=== PATIENT | female | born 1955 | race Caucasian/White ===

== ENCOUNTER 2017-06-27 09:37 | Day surgery (SDC) | payer SELFPAY ==
[2017-06-27] MEDS ORDERED: Sodium Chloride 0.9% 20 ML ONE (09:57)
[2017-06-27 10:26] LABS: Hematocrit 40.8 % (36.0-47.0); Mean Platelet Volume 6.8 fL (7.4-10.4); White Blood Cell (WBC) Count 20.2 thou/uL (4.8-10.8)
[2017-06-27] MEDS ORDERED: Palonosetron HCl 0.25 MG, Admixture Fee 1 EACH in Sodium Chloride 0.9% 50 ML IVPB SCH (10:30)
[2017-06-27] MEDS ORDERED: Fosaprepitant Dimeglumine 150 MG, Admixture Fee 1 EACH in Sodium Chloride 0.9% 250 ML 1... IVPB SCH (10:30)
[2017-06-27 10:37] VITALS: BP 130/69; TEMP 98.4
[2017-06-27] MEDS ORDERED: MANNITOL IV SCH (10:45)
[2017-06-27] MEDS ORDERED: Dexamethasone 20 MG, Admixture Fee 1 EACH in Sodium Chloride 0.9% 50 ML IVPB SCH (10:45)
[2017-06-27] MEDS ORDERED: CISPLATIN IV SCH (10:45)
[2017-06-27] MEDS ORDERED: Cyanocobalamin 1000 MCG/ML VIAL IM SCH (10:45)
[2017-06-27] MEDS ORDERED: ADMIXTURE FEE IV SCH (10:45)
[2017-06-27] MEDS ORDERED: PEMETREXED IVPB SCH ×2 (10:45)
[2017-06-27] MEDS ORDERED: SODIUM CHLORIDE IV SCH (10:45)
[2017-06-27] MEDS ORDERED: SODIUM CHLORIDE 0.9% IVPB SCH ×2 (10:45)
[2017-06-27 10:50] LABS: Band 9 % (5-11); Neutrophil 78 % (42-75)
[2017-06-27 10:54] LABS: ALT (SGPT) 15 U/L (8-55); AST (SGOT) 11 U/L (5-34); Alkaline Phosphatase 96 U/L (40-150); Anion Gap 16 mmol/L (10-20); BUN (Urea Nitrogen) 15 mg/dL (9.8-20.1); Bilirubin, Total 0.2 mg/dL (0.2-1.2); Calc. Creatinine Clearance 63 mL/min (70-130); Calcium 10.1 mg/dL (7.8-10.44); Carbon Dioxide 23 mmol/L (23-31); Chloride 102 mmol/L (98-107); Estimated GFR-MDRD 52; Globulin 3.3 g/dL (2.4-3.5); LDH 157 U/L (125-220); Magnesium 1.7 mg/dL (1.6-2.6); Protein, Total 7.3 g/dL (6.0-8.3); Uric Acid 6.6 mg/dL (2.6-6.0)
[2017-06-27] MEDS: ADMIXTURE FEE IV SCH ×2 (11:09→15:12)
[2017-06-27] MEDS: SODIUM CHLORIDE IV SCH ×2 (11:09→15:12)
[2017-06-27] MEDS: POTASSIUM CHLORIDE IV SCH ×2 (11:09→15:12)
== END 2017-06-27 16:33 | disposition home or self-care (01) ==
LOC: ONC/OP 09:37
PROVIDERS: ATTEND Internal Medicine Medical Oncology
DX: Z51.11 Encounter for antineoplastic chemotherapy (principal); C34.12 Malignant neoplasm of upper lobe, left bronchus or lung; I25.10 Atherosclerotic heart disease of native coronary artery without angina pectoris; E78.00 Pure hypercholesterolemia, unspecified; F32.9 Major depressive disorder, single episode, unspecified; F41.9 Anxiety disorder, unspecified; I25.2 Old myocardial infarction; J44.9 Chronic obstructive pulmonary disease, unspecified; I11.0 Hypertensive heart disease with heart failure; I50.9 Heart failure, unspecified; Z88.0 Allergy status to penicillin; Z88.5 Allergy status to narcotic agent; Z88.8 Allergy status to other drugs, medicaments and biological substances; Z95.5 Presence of coronary angioplasty implant and graft; Z90.710 Acquired absence of both cervix and uterus; Z90.2 Acquired absence of lung [part of]; Z87.891 Personal history of nicotine dependence; Z86.73 Personal history of transient ischemic attack (TIA), and cerebral infarction without residual deficits; Z82.49 Family history of ischemic heart disease and other diseases of the circulatory system; Z80.9 Family history of malignant neoplasm, unspecified
CPT/HCPCS: 80053; 83615; 83735; 84550; 85025; 96367; 96413; 96415; 96417; A4216; J1100; J1453; J1642; J2150; J2469; J3420; J3480; J7050; J9060; J9305

== ENCOUNTER 2017-06-30 12:03 | Inpatient (IN) | payer OTHER, SELFPAY ==
[2017-06-30 12:41] LABS: #Basophils 0.1 thou/uL (0.0-0.2); #Lymphocytes 5.2 thou/uL (1.20-3.40); #Monocytes 0.2 thou/uL (0.11-0.59); #Neutrophils 7.3 thou/uL (1.40-6.50); %Basophils 1.1 % (0.0-1.0); %Eosinophils 0.3 % (0.0-10.0); %Lymphocytes 40.4 % (21.0-51.0); %Monocytes 1.8 % (0.0-10.0); Mean Platelet Volume 6.9 fL (7.4-10.4); Red Blood Cell (RBC) Count 4.54 mill/uL (4.20-5.40); White Blood Cell (WBC) Count 12.9 thou/uL (4.8-10.8)
--- NOTE | 2017-06-30 12:47 | CT ---
CT HEAD NONCONTRAST: HISTORY: Vision loss. Altered mental status. FINDINGS: There is no evidence of acute intracranial hemorrhage or infarct. The ventricles appear normal in s ize, shape, and position. There is no mass effect or shift of midline structures. Visualized paran vicki sinuses remain well aerated. IMPRESSION: No acute intracranial abnormalities are demonstrated on noncontrast CT head. Findings were called to Dr. Buckner in the emergency department at 1211 hours. CODE CR POS: [facility]
[2017-06-30 12:52] LABS: ALT (SGPT) 27 U/L (8-55); AST (SGOT) 24 U/L (5-34); Alkaline Phosphatase 82 U/L (40-150); Anion Gap 14 mmol/L (10-20); BUN (Urea Nitrogen) 34 mg/dL (9.8-20.1); Bilirubin, Total 0.3 mg/dL (0.2-1.2); Calc. Creatinine Clearance 0 mL/min (70-130); Calcium 9.2 mg/dL (7.8-10.44); Carbon Dioxide 27 mmol/L (23-31); Chloride 97 mmol/L (98-107); Estimated GFR-MDRD 38; Protein, Total 6.7 g/dL (6.0-8.3)
[2017-06-30 12:53] LABS: Prothrombin Time 11.9 SEC (12.0-14.7)
[2017-06-30 12:57] LABS: Troponin I Less than 0.010 ng/mL (< 0.028)
[2017-06-30] MEDS ORDERED: Clopidogrel Bisulfate 75 MG TAB ONE (13:23)
[2017-06-30] MEDS ORDERED: Ondansetron HCl/PF 4 MG/2 ML Vial ONE (13:23)
[2017-06-30 13:36] LABS: CK (CPK) 26 U/L (29-168); Lipase 28 U/L (8-78)
--- NOTE | 2017-06-30 13:50 | RAD ---
AP VIEW CHEST: HISTORY: Altered mental status. DATE: 06/30/17. COMPARISON: Comparison is made to previous exam from 05/22/17. FINDINGS: AP view chest demonstrates a subclavian MediPort catheter, distal tip overlying the SVC. The lungs are well aerated. No evidence of active intrathoracic disease seen. No evidence of effusions, pneu monia, or pneumothorax seen. IMPRESSION: Unremarkable AP view chest. POS: [facility]
[2017-06-30] MEDS ORDERED: Sodium Chloride 0.9% 1,000 ML IV SCH ×3 (14:15)
--- NOTE | 2017-06-30 14:59 | PDOC.EVN ---
Event Note - Event Note Event Note: pt seen and examined , H & P dictated # [id number]
--- NOTE | 2017-06-30 16:02 | ULT ---
BILATERAL CAROTID DUPLEX ULTRASOUND: 06/30/17 HISTORY: Altered mental status and vision loss. TECHNIQUE: Webster scale ultrasound with color flow doppler and spectral doppler imaging of the extracranial carot id artery system is performed bilaterally. FINDINGS: There is plaque formation on either side. Vessels are tortuous. The peak systolic velocity in the right ICA measures 69 cm/s with an end diastolic velocity of 30 cm /s and systolic ratio of 0.89. The peak systolic velocity in the left ICA measures 79 cm/s with an end diastolic velocity of 24 cm/ s and systolic ratio of 1.20. Flow in both vertebral arteries remains antegrade. IMPRESSION: No evidence of hemodynamically significant stenosis. POS: [facility]
[2017-06-30 16:22] VITALS: BMI 29.5
[2017-06-30] MEDS ORDERED: FLU VACC QS2017-18 36 mo. & older 0.5 ML SYRINGE IM ONE (16:45)
--- NOTE | 2017-06-30 17:19 | HP ---
CHIEF COMPLAINT: Visual disturbances. HISTORY OF PRESENT ILLNESS: The patient is a 62-year-old female with past medical history significa nt for lung cancer, status post lobectomy and chemotherapy; CAD; hypertension; status post coronary stenting; asthma; depression; CHF; COPD. The patient presented to the emergency room, complaining o f not being able to see since 7:30 this morning. The patient says she woke up this morning and went to feed her dog and could not see the left half of her vision. This progressively became worse. S he also had a severe vertigo attack, which caused her to fall to her feet, but she did not sustain a ny trauma. She sat in the chair and then called her who then brought her to the ER. In the emergency room, it was noted that patient had visual deficit involving the left half of the visual field. A CT scan of the head done in the emergency room was negative. The patient, by the time of her arrival, was outside of the tPA window. The patient was noted to have unsteady gait as well. A t the time of my visit, the patient is improved; however, she had a transient worsening of her visio n. At that time, her blood pressure was noted to be low in the ER, the systolic blood pressure in t he 70s. She received 2-liter bolus, now the blood pressure has come up to 110. Patient says she is not able to see, but the vision deficit has stabilized over the past half an hour or so. She denie s any headache. She has no change in mental status. She does not have any slurred speech. Vertigo has improved. She denies any weakness of any part of the body. Patient does have a history of pre vious CVA about 5 years ago. At that time, she had right hemiparesis. She almost fully recuperated . She says occasionally the right leg drags, but overall she is doing well. Recently, the patient had an SD about 2 months ago and since then she has been on aspirin and Brilinta. The patient did g et Plavix in the ER. PAST MEDICAL HISTORY: 1. Hypertension. 2. COPD. 3. Lung cancer on chemo, the last dose was 3 days ago. 4. Status post lobectomy. 5. Status post coronary artery stenting for acute SD in the recent 6 months as mentioned above. 6. Hyperlipidemia. 7. Depression. 8. History of CHF. 9. History of pancreatitis. 10. History of CVA 5 years ago as mentioned above. PAST SURGICAL HISTORY: The patient has left upper lobe lobectomy, cardiac stenting, and tonsillecto my. She has also had hysterectomy in the past. HOME MEDICATIONS: The patient is on albuterol, Paxil, Brilinta, aspirin, atorvastatin, and metoprol ol. SOCIAL HISTORY: The patient is . She lives at home with her . The patient is an act rey smoker, half a pack a day for past several years. History of marijuana abuse in the past, curre ntly negative. Patient denies any history of cocaine abuse. FAMILY HISTORY: Mother has hypertension and cancer. REVIEW OF SYSTEMS: Constitutional: No history of weight loss, weight gain, night sweats, or fevers . HEENT: As per history of present illness. The patient denies any difficulty in chewing or swall owing. No hearing problem, no headache. Cardiac: As per history of present illness. Currently, d enies any chest pain, palpitations, or pedal edema. Respiratory: As per history of present illness . Denies any wheezing, cough, or hemoptysis currently. Gastrointestinal: No abdominal pain, nause a, vomiting, diarrhea, black stool, or blood in stools. Neurological: As per history of present il lness. No history of seizures. No history of tingling or numbness. Hematologic: As per history o f present illness. The patient denies any easy bruising or bleeding. Skin: No history of petechia e or rashes. PHYSICAL EXAMINATION: GENERAL: This is a pleasant middle-aged female, in no apparent distress. VITAL SIGNS: Her current blood pressure is 117/72, pulse rate 59, respirations 20. Earlier, patien t was in a low as mentioned above before the bolus in the 70s. HEENT: Normocephalic, atraumatic. Pupils are reactive to light and accommodation. Extraocular mov ements are intact. There is no nystagmus. Face is symmetrical bilaterally. Ears are clear. Nose shows no nasal lesions, no discharge. Oral cavity shows tongue is central and midline. No oral les ions. NECK: Supple. No thyromegaly, no JVD, no bruit. CHEST: The patient has a surgical scar present. There is diminished breath sound over the left upp er lobe, bilateral. Clear to auscultation otherwise. CARDIOVASCULAR: S1, S2 normal. No S3, S4, or murmur. ABDOMEN: Obese, soft, nontender. Bowel sounds are active. No guarding or rebound. Free fluid. N o masses. No organomegaly. NEUROLOGIC: Patient is awake, alert, oriented x3. The patient has a visual field deficit on the le ft side as mentioned above. Otherwise, no focal neurological deficits are noted. Speech is normal. Bilateral plantars are downgoing. SKIN: No petechiae or rashes. LABORATORY DATA: Her white count is slightly elevated at 12.9, hemoglobin 14.7, hematocrit 44, plat elets are 311. Differential is normal. PT/INR is within normal limits. Sodium 134, potassium 4.3, chloride 97, CO2 of 27, anion gap 14, BUN 34, creatinine 1.41, slightly elevated glucose compared t o previous visit. Glucose 112, calcium 9.2, total bilirubin 0.3, AST 24, ALT 27. BNP is elevated a t 144. LFTs are within normal limits. CT of the head done in the emergency room is within normal l imits. Chest x-ray is within normal limits. The patient did have an MRI of the brain in 03/2017 fo r staging of the cancer and it was within normal limits. There were no intracranial metastases. Tyler smith had a nuclear PET scan in 02/2017, which showed hypermetabolic lesion in the left upper lobe and h ypermetabolic activity in the left maxillary sinus area. A 2D echocardiogram was done in 12/2016 wi th EF of 40% to 45%. CT of the thorax done in 04/2017, showing changes of lobectomy, otherwise unre markable. ASSESSMENT AND PLAN: 1. Acute ischemic cerebrovascular accident involving right occipital lobe. 2. History of cerebrovascular accident in the past. 3. Left hemianopsia. 4. History of lung cancer, status post lobectomy. 5. On chemotherapy with cisplatin. 6. Low blood pressure, now resolved. 7. Acute renal failure/chronic kidney disease. 8. Coronary artery disease. 9. Status post recent percutaneous coronary intervention. 10. Left ventricle ejection fraction of 40% to 45%. 11. History of congestive heart failure, currently stable. 12. Tobacco abuse. 13. Chronic obstructive pulmonary disease. 14. Depression. ASSESSMENT AND PLAN: At this present time, the patient will be monitored in IMCU. We will do neuro checks q.2 hours. I discussed the case over the phone with the Neurology banking management consulting manager and he agrees wit h the present management. The patient is outside the tPA window and is not a candidate for intra-ar terial intervention. We will continue with aspirin and Brilinta. We will follow stroke protocol. We will do bedside speech evaluation. We will check 2D echocardiogram and carotid Dopplers. We jazmín vela also request oncology consultation in view of her history of cancer and recent chemotherapy. We w ill put her on normal saline at 125 mL an hour after the saline bolus at ER was completed allowing f or permissive hypertension. We will monitor closely for any signs of fluid overload. We will monit or the creatinine as well. We will put her on Protonix for stress ulcer prophylaxis and SCD for DVT prophylaxis. We will put her on nebulizer treatment. We will review her home medication. Further recommendations will be made depending on course of clinical events. Discussed with the patient at bedside. She was updated on the plan. All questions were answered.
[2017-06-30] MEDS: Sodium Chloride 0.9% 1,000 ML IV SCH (17:57)
[2017-06-30] MEDS: Ondansetron HCl/PF 4 MG/2 ML Vial IVP PRN (18:42)
[2017-06-30] MEDS: TICAGRELOR 90 MG TABLET PO SCH (20:37)
[2017-06-30] MEDS: Pantoprazole 40 MG VIAL IVP SCH (20:37)
[2017-06-30] MEDS ORDERED: Atorvastatin Calcium 10 MG TAB PO SCH (21:00)
[2017-06-30] MEDS: HYDROcodone/Acetaminophen 5/325 mg Tablet PO PRN (21:12)
[2017-07-01] MEDS ORDERED: Lidocaine 2% Jelly 5 ML TUBE ONE (01:12)
[2017-07-01] MEDS: Sodium Chloride 0.9% 1,000 ML IV SCH ×2 (04:25→14:57)
[2017-07-01] MEDS ORDERED: Aspirin 81 mg Enteric Coated Tablet PO SCH (09:00)
[2017-07-01] MEDS ORDERED: Aspirin 325 mg Enteric Coated Tablet PO SCH (09:00)
[2017-07-01] MEDS: TICAGRELOR 90 MG TABLET PO SCH ×2 (09:31→20:23)
[2017-07-01] MEDS: Ondansetron HCl/PF 4 MG/2 ML Vial IVP PRN ×2 (09:31→19:20)
[2017-07-01] MEDS: Pantoprazole 40 MG VIAL IVP SCH ×2 (09:31→20:23)
--- NOTE | 2017-07-01 12:18 | CON ---
DATE OF CONSULTATION: 07/01/2017 NEUROLOGY CONSULTATION CONSULTING PHYSICIAN: Hospitalist Service. IMPRESSION: 1. Probable right occipital stroke. 2. Past history of transient right hemiparesis. 3. Hypertension. 4. Coronary artery disease. 5. Lung cancer. PLAN: 1. Continue aspirin. 2. Add Plavix 75 mg per day. 3. Continue statin. HISTORY OF PRESENT ILLNESS: Ms. Roberts is a 62-year-old white female, who came in with complaints of acute vision loss. She noted that her peripheral vision on the left was obscured. There was some associated dizziness, but no headache. She denied any difficulty with speech or lateralized weaknes s or numbness. Her vision has improved somewhat compared to last night. Initial CT scan of the bra in was unremarkable. Her symptoms have been present for several hours and therefore she was outside the window for TPA. She had a carotid ultrasound done, which was unremarkable. Echocardiogram lauren wed a normal ejection fraction of 55%. PAST MEDICAL HISTORY: As listed above. ALLERGIES: As listed per chart. SOCIAL HISTORY: Positive for tobacco use. FAMILY HISTORY: Noncontributory. REVIEW OF SYSTEMS: Otherwise, negative for chest pain, shortness of breath. PHYSICAL EXAMINATION: GENERAL: Well-nourished, elderly woman in no distress. VITAL SIGNS: Blood pressure 128/80, pulse 68. HEENT: Pupils are equal and reactive. Conjunctivae clear. Oropharynx is clear. Cranium is normoc ephalic and atraumatic. NECK: Supple, no lymphadenopathy noted. EXTREMITIES: No cyanosis noted. NEUROLOGIC: She is alert and appropriate. Her speech is fluent and clear. She had a partial left homonymous hemianopsia present on confrontational exam. Remainder of the cranial nerves were intact . Motor strength seems symmetric. There was no fix or drift noted. Hkplsk-[id number] and rapid alter nating movements were equal. Sensation was intact to light touch. She could stand and walk indepen dently. SUMMARY: This is a 62-year-old woman with a history of stroke, tobacco use, coronary artery disease , and hypertension who presents with a visual field deficit consistent with an occipital lobe stroke , appears to be improving clinically based on her assessment. We can add Plavix and possibly discha rge her home this evening.
--- NOTE | 2017-07-01 12:22 | MRI ---
NONCONTRAST ENHANCED MRI IMAGES OF BRAIN: DATE: 07/01/17. COMPARISON: Comparison is made to previous exam from 04/16/17. TECHNIQUE: Multiplanar, multisequence noncontrast-enhanced MRI images of the brain obtained. HISTORY: Peripheral vision loss. FINDINGS: Noncontrast-enhanced MRI images of the brain demonstrate an area of diffusion restriction with assoc iated signal changes seen on FLAIR weighted sequences in the medial posterior aspect of the right te mporal lobe involving the posterior most aspect of the right hippocampus. This area did not have si milar signal changes on the patient's previous MRI from approximately 2-1/2 months earlier. This ma y represent an area of acute stroke in the right anterior choroidal arterial distribution. Incidentally noted right choroid plexus cyst is also present, unchanged since the previous compariso n MRI. IMPRESSION: Interval development of an acute stroke in the medial posterior aspect of the right temporal lobe, p ossibly in the right anterior choroidal artery vascular distribution. Distribution does involve hector e of the optic radiations as well as possibly the right lateral geniculate nucleus. Findings discussed with Dr. Singh at 11:48 a.m. on 07/01/17. CODE CR POS: [facility]
--- NOTE | 2017-07-01 14:56 | CON ---
DATE OF CONSULTATION: 07/01/2017 REASON FOR CONSULTATION: Lung cancer. HISTORY OF PRESENT ILLNESS: Ms. Roberts is a 62-year-old female who had a myocardial infarction in [facility]. During that workup, a CT angio showed a 17 x 16 mm spiculated mass in the left upper lobe. S he underwent left upper lobectomy and mediastinal lymph node dissection. Pathology showed moderatel y differentiated adenocarcinoma. She was a stage IIIA with T1a N2 M0. She started chemotherapy in April with Ellipta and cisplatin. She struggled with fatigue and nausea and required a 20% dose re duction. Her last treatment was on 06/27/2017. Yesterday, she states that she got up and had an ep isode of dizziness and fell to the ground with no injury. She was having tunnel vision. She presen misael to the emergency room for evaluation. Her brain CT showed no acute abnormalities. Her chest x- ray was unremarkable. Her carotid Doppler study showed no significant stenosis. Patient is on aspi rin and Brilinta and has been on for several months secondary to her NC. She does have a history of a stroke approximately 5 years ago, which called right-sided hemiparesis. Residual is only occasio nal right leg weakness. She is scheduled for an MRI today. Neurology has been consulted. Currentl y, she states that her vision has improved slightly. She has no muscular deficits. Denies any ches t pain or shortness of breath. No abdominal pain, nausea or vomiting. She did have a headache last night, which resolved with [place]. PAST MEDICAL HISTORY: 1. Stage IIIA lung cancer. 2. Hypertension. 3. Coronary artery disease. 4. History of NC 2 months ago. 5. High cholesterol. 6. Stroke. 7. Tobacco use. 8. Anxiety or depression. PAST SURGICAL HISTORY: 1. Left thoracotomy and left upper lobectomy. 2. Cardiac stent placement. 3. Hysterectomy. ALLERGIES: To CODEINE, NIACIN, and PENICILLIN. HOME MEDICATIONS: 1. Atorvastatin 20 mg daily. 2. Brilinta 90 mg b.i.d. 3. Hydrocodone 5/325 one q.6 hours p.r.n. pain. 4. Metoprolol tartrate 25 mg b.i.d. 5. Paroxetine 10 mg daily. 6. Paxil 10 mg daily. 7. Ventolin p.r.n. 8. Zantac 150 mg 2 tablets daily. 9. Zofran p.r.n. 10. Zyrtec daily. FAMILY HISTORY: Mother had melanoma. SOCIAL HISTORY: , lives with her spouse. She is a current smoker. No alcohol or illicit dr ug use. REVIEW OF SYSTEMS: A 12-point review of system is negative except for noted in HPI. PHYSICAL EXAMINATION: VITAL SIGNS: Temperature is 98.6, pulse is 85, respiratory rate 16, BP is 116/85. She is 96% on ro om air. GENERAL: Well-developed, well-nourished female in no acute distress. HEENT: Normocephalic, atraumatic. Pupils equal and reactive to light. NECK: Supple. CARDIOVASCULAR: Regular rate and rhythm. LUNGS: Clear to auscultation. ABDOMEN: Soft, nontender, bowel sounds are positive. EXTREMITIES: No clubbing, cyanosis or edema. SKIN: No rash. HEMATOLOGIC: No petechia or purpura. NEUROLOGIC: Nonfocal. She has peripheral field visual deficits. PSYCHIATRIC: The patient is alert and oriented and appropriate. PERTINENT LABORATORY DATA AND X-RAYS: Current WBCs are 12.9, hemoglobin 14.7, hematocrit 44, platel et count 311,000, 56% neutrophils, 40% lymphocytes. PT 11.9, INR 0.9, PTT is 23. Sodium is 137, po tassium 4.3, chloride 97. CO2 is 27, BUN is 34, creatinine 1.41, calcium 9.2, total bilirubin 0.3, AST 24, ALT 27, alkaline phosphatase 82, creatinine kinase is 26. Troponin is negative. BNP is 144 .6. Serum total protein is 6.7, albumin 3.4, globulin 3. Radiology per HPI. ASSESSMENT: 1. Stage IIIA lung cancer, status post lobectomy on cisplatin and Alimta chemotherapy. 2. Possible acute cerebrovascular accident. 3. Strong history of coronary artery disease. 4. History of cerebrovascular accident in the past. 5. Tobacco use. DISCUSSION: Patient is being worked up for CVA. Her MRI is today. Neurology will see the patient. Her aspirin and Brilinta have been continued. This is unlikely chemo induced, but certainly cance r puts her in increased risk for clotting. She is approaching her luciano so her counts may drop in t he next few days, which is expected. I will add antiemetics for her nausea and we will just follow her hospital course remotely. Thank you for the consult.
[2017-07-01] MEDS ORDERED: Famotidine 20 MG TAB PO PRN (15:12)
[2017-07-01] MEDS ORDERED: Ondansetron ODT 4 MG TAB PO PRN (15:12)
[2017-07-01] MEDS ORDERED: PROVENTIL INHALER 6.7 G (200 INHALATIONS) INH PRN (15:12)
--- NOTE | 2017-07-01 15:12 | PDOC.PN ---
- Subjective Encounter Start Date: 07/01/17 Encounter Start Time: 11:55 Subjective: pt is feeling better. vision has improved - Objective Vital Signs & Weight: Vital Signs (12 hours) Temp Pulse Pulse Pulse Resp BP BP 07/01/17 15:03 115 H 20 07/01/17 13:50 98.4 F 116 H 18 07/01/17 12:00 98.6 F 95 18 07/01/17 09:00 99 110 H 112/68 172/81 H 07/01/17 08:00 98.6 F 85 16 07/01/17 07:58 98.6 F 85 16 07/01/17 04:00 98.4 F 88 20 BP Pulse Ox 07/01/17 15:03 98 07/01/17 13:50 93/83 96 07/01/17 12:00 126/83 96 07/01/17 09:00 07/01/17 08:00 96 07/01/17 07:58 116/85 96 07/01/17 04:00 118/65 98 Weight Weight 169 lb 3.2 oz I&O: 06/30/17 07/01/17 07/02/17 06:59 06:59 06:59 Intake Total 2090 Output Total 1550 Balance 540 Result Diagrams: 06/30/17 12:20 06/30/17 12:20 Phys Exam - Physical Examination HEENT: PERRLA, moist MMs Respiratory: no wheezing, clear to auscultation bilateral Cardiovascular: RRR, no significant murmur Gastrointestinal: soft, non-tender, no distention Musculoskeletal: no edema Psychiatric: A&O x 3 Skin: no rash Dx/Plan (1) CVA (cerebral vascular accident) Code(s): I63.9 - CEREBRAL INFARCTION, UNSPECIFIED Status: Acute (2) Homonymous hemianopsia Code(s): H53.469 - HOMONYMOUS BILATERAL FIELD DEFECTS, UNSPECIFIED SIDE Status : Acute (3) HTN (hypertension) Code(s): I10 - ESSENTIAL (PRIMARY) HYPERTENSION Status: Acute (4) Lung cancer Code(s): C34.90 - MALIGNANT NEOPLASM OF UNSP PART OF UNSP BRONCHUS OR LUNG Status: Acute - Plan will cont current care -: follow up on MRI -: await oncology input * .
[2017-07-01] MEDS ORDERED: Nitroglycerin 0.4 MG TAB (25 Tab Bottle) SL PRN (15:20)
[2017-07-01 15:29] LABS: #Basophils 0.1 thou/uL (0.0-0.2); #Eosinphils 0.1 thou/uL (0.0-0.7); #Lymphocytes 2.8 thou/uL (1.20-3.40); #Monocytes 0.1 thou/uL (0.11-0.59); #Neutrophils 4.3 thou/uL (1.40-6.50); %Eosinophils 1.1 % (0.0-10.0); %Monocytes 0.8 % (0.0-10.0); Mean Platelet Volume 7.1 fL (7.4-10.4); Red Blood Cell (RBC) Count 4.13 mill/uL (4.20-5.40); White Blood Cell (WBC) Count 7.2 thou/uL (4.8-10.8)
[2017-07-01] MEDS ORDERED: Loratadine 10 MG TAB PO PRN (15:30)
[2017-07-01] MEDS ORDERED: Metoclopramide HCl 10 MG TAB PO SCH (15:30)
[2017-07-01 15:44] LABS: Anion Gap 15 mmol/L (10-20); BUN (Urea Nitrogen) 28 mg/dL (9.8-20.1); Calc. Creatinine Clearance 56 mL/min (70-130); Calcium 8.7 mg/dL (7.8-10.44); Carbon Dioxide 23 mmol/L (23-31); Chloride 104 mmol/L (98-107); Estimated GFR-MDRD 44
--- NOTE | 2017-07-01 16:26 | CON ---
DATE OF CONSULTATION: 07/01/2017 HISTORY OF PRESENT ILLNESS: Ms. Roberts is a very pleasant 62-year-old female. She says she got up y day morning to feed her cat and then passed out. She woke up on the floor. The admission hist ory and physical said that she had a left hemianopsia, but she tells me she had a tunnel vision and could not see anything laterally out of either eye. She had difficulty standing. She did not present to the emergency room until the end of the day. An MRI has been done this morning. Her subjective complaints had improved significantly. An abnorm ality was seen in the area of the right anterior choroidal artery vascular distribution suggestive o f an acute thrombotic event. I discussed this with the radiologist twice. To confrontation at this point in time, she does not have hemianopsia. She is in the intermediate care unit. I have been consulted because of this. She will be transferr ing out to the stroke unit. PAST MEDICAL HISTORY: 1. She was recently diagnosed with a T2 N2 nonsmall cell lung cancer (adenocarcinoma) that was rese cted by Dr. Bill. 2. History of COPD. She is followed by Dr. Paulino. She is not on nebulizer treatments at home. 3. Hypertension. 4. Status post coronary artery stenting in the past. 5. History of stroke in the past. 6. History of depression. 7. History of pancreatitis. 8. History of lipid disorder. 9. Status post hysterectomy and tonsillectomy. MEDICATIONS: She is on Paxil, Brilinta, aspirin, atorvastatin, metoprolol, and albuterol. SOCIAL HISTORY: She is a nondrinker. She is still smoking. FAMILY HISTORY: Positive for cancer and hypertension. REVIEW OF SYSTEMS: Otherwise unremarkable. She says she feels 100% better compared to yesterday mo rning. PHYSICAL EXAMINATION: VITAL SIGNS: She is afebrile, heart rate 95, respiratory rate 18, oximetry is 96, and blood pressur e 112/68. Her blood pressure transiently in the emergency room was in the 70s she tells me. HEENT: Her pupils are reactive. Sclerae are anicteric. Extraocular movements are full. I do not detect any lateral visual field defects to confrontation. NECK: Supple, no lymphadenopathy. LUNGS: Clear. HEART: Regular rhythm. S1 and S2 are normal. ABDOMEN: Soft and nontender. EXTREMITIES: Without asymmetry. She tells me she has had issues with dehydration with her chemotherapy recently. IMPRESSION AND PLAN: It sounds like she had an orthostatic hypotensive event at home. It is unclea r whether this is hypotension triggered the cerebrovascular accident or was part of it. She did not have anything from the central nervous system standpoint that would lead to hypotension and is unli thania she had a dysrhythmia. Per my discussion with radiologist, the MRI suggestive of a stroke in t his area, which may contribute to visual field defect. Confrontation testing in a visual field test with an occupational health physician probably will have to be done a t some point in time, especially to determine whether or not it is safe for her to drive. She is stable to move out of the intermediate care unit. Dr. Paulino will be notified of her admiss ion in the morning. I will add nebulizer treatments since she will be as active. Physical Therapy should be consulted while she is here.
[2017-07-01] MEDS: HYDROcodone/Acetaminophen 5/325 mg Tablet PO PRN (19:19)
[2017-07-01] MEDS: Metoclopramide HCl 10 MG TAB PO SCH (20:21)
[2017-07-01] MEDS: Metoprolol Tartrate 25 MG TAB PO SCH (20:22)
[2017-07-01] MEDS ORDERED: Lactinex Tablet PO SCH (21:00)
[2017-07-02] MEDS: Sodium Chloride 0.9% 1,000 ML IV SCH (04:31)
[2017-07-02] MEDS: Ondansetron HCl/PF 4 MG/2 ML Vial IVP PRN (04:31)
[2017-07-02 07:38] VITALS: TEMP 98.5
[2017-07-02] MEDS: Metoprolol Tartrate 25 MG TAB PO SCH (08:08)
[2017-07-02] MEDS: Metoclopramide HCl 10 MG TAB PO SCH (08:08)
[2017-07-02] MEDS: TICAGRELOR 90 MG TABLET PO SCH (08:08)
[2017-07-02] MEDS: Pantoprazole 40 MG VIAL IVP SCH (08:09)
--- NOTE | 2017-07-02 08:54 | PRG ---
DATE OF SERVICE: 07/02/2017 SUBJECTIVE: Ms. Roebrts is doing reasonably well except for vision. PHYSICAL EXAMINATION: VITAL SIGNS: Temperature 98.5, pulse 111, respirations 16, O2 saturation 97%, and blood pressure 10 8/79. HEENT: Unremarkable. NECK: No JVD. CHEST: Fairly clear. CARDIAC: S1 and S2 regular. ABDOMEN: Soft. EXTREMITIES: No edema. LABORATORY DATA: No new labs were done today. ASSESSMENT: 1. Possible cerebrovascular accident versus amaurosis fugax. 2. Lung cancer. 3. Chronic obstructive pulmonary disease. PLAN: Continue nebulization treatments and low flow oxygen as needed, nothing from respiratory emma dpazucena is necessarily keeping her in the hospital.
[2017-07-02] MEDS ORDERED: Lisinopril 5 MG TAB PO SCH (09:00)
[2017-07-02] MEDS ORDERED: Aspirin 81 mg Enteric Coated Tablet PO SCH (09:00)
[2017-07-02] MEDS ORDERED: PARoxetine 20 MG TAB PO SCH (09:00)
[2017-07-02] MEDS ORDERED: Hydrochlorothiazide 25 MG TAB PO SCH (09:00)
[2017-07-02] MEDS ORDERED: Atorvastatin Calcium 10 MG TAB PO SCH (09:00)
--- NOTE | 2017-07-02 09:51 | PDOC.PN ---
- Subjective Encounter Start Date: 07/02/17 Encounter Start Time: 09:50 Patient seen at bedside. States her vision has improved. No numbness or weakness noted. - Objective MAR Reviewed: Yes Vital Signs & Weight: Vital Signs (12 hours) Temp Pulse Resp BP Pulse Ox 07/02/17 08:20 98.5 F 111 H 16 07/02/17 08:09 111 H 07/02/17 07:10 98.5 F 111 H 16 108/79 97 07/02/17 06:22 101 H 18 97 07/02/17 03:15 98 F 81 16 113/85 96 07/01/17 23:12 98.1 F 89 16 94/73 95 Weight Weight 172 lb 14.4 oz I&O: 07/01/17 07/02/17 07/03/17 06:59 06:59 06:59 Intake Total 2090 540 Output Total 1550 Balance 540 540 Result Diagrams: 07/01/17 15:20 07/01/17 15:20 Phys Exam - Physical Examination Constitutional: NAD HEENT: moist MMs Neck: no JVD Respiratory: no rales Cardiovascular: no significant murmur Gastrointestinal: soft, non-tender Musculoskeletal: pulses present Neurological: moves all 4 limbs Left peripheral visual deficit Psychiatric: normal affect, A&O x 3 Dx/Plan (1) CVA (cerebral vascular accident) Code(s): I63.9 - CEREBRAL INFARCTION, UNSPECIFIED Status: Acute (2) HTN (hypertension) Code(s): I10 - ESSENTIAL (PRIMARY) HYPERTENSION Status: Chronic (3) Homonymous hemianopsia Code(s): H53.469 - HOMONYMOUS BILATERAL FIELD DEFECTS, UNSPECIFIED SIDE Status : Acute (4) Lung cancer Code(s): C34.90 - MALIGNANT NEOPLASM OF UNSP PART OF UNSP BRONCHUS OR LUNG Status: Chronic - Plan cont current plan of care, PT/OT, social media executive * D/C IV Fluids. * Continue with ASA/Brilinta * Statin * D/C Home with followup with Heme/Onc for chemotherapy
[2017-07-02 11:04] VITALS: BP 114/86
--- NOTE | 2017-07-02 17:39 | DIS ---
DATE OF ADMISSION: 06/30/2017 DATE OF DISCHARGE: 07/02/2017 DISCHARGE DISPOSITION: Home. DISCHARGE FOLLOWUP: 1. Dr. Levy as an outpatient. 2. Dr. Hernandez as an outpatient. 3. Dr. Chavez as an outpatient. DISCHARGE DIAGNOSES: 1. Acute cerebrovascular accident involving the right temporal lobe as well as possibly the right a nterior carotid artery and optic radiations. 2. Hypertension. 3. Lung cancer, status post lobectomy, currently undergoing chemotherapy. 4. Hyperlipidemia. 5. Coronary artery disease. 6. History of cerebrovascular accident. DISCHARGE MEDICATIONS: 1. Albuterol p.r.n. 2. Aspirin 81 mg p.o. daily. 3. Lipitor 10 mg p.o. daily. 4. Zyrtec 10 mg p.o. daily. 5. Spruce p.r.n. 6. Hydrochlorothiazide 12.5 mg p.o. daily. 7. Zestril 5 mg p.o. daily. 8. Reglan 5 mg p.o. t.i.d. 9. Lopressor 12.5 mg p.o. b.i.d. 10. Paxil 10 mg p.o. daily. 11. Phenergan 25 mg p.o. q.6 hours p.r.n. 12. Zantac 300 mg p.o. at bedtime p.r.n. 13. Brilinta 90 mg p.o. b.i.d. INPATIENT PROCEDURES: None. INPATIENT RADIOGRAPHIC EXAMINATIONS: 1. CT of the brain without contrast, which revealed no acute intracranial abnormalities. 2. Chest x-ray, which revealed no acute intrathoracic disease. 3. Carotid Doppler studies, which revealed no evidence of hemodynamically significant stenosis. 4. Echocardiogram, which revealed an EF estimated at 55% to 60%. 5. Brain MRI, which revealed interval development of an acute stroke in the medial and posterior as pect of the right temporal lobe, possibly in the right anterior choroidal artery vascular distributi on with involvement of optic radiations involving the right lateral geniculate nucleus. BRIEF HOSPITAL COURSE: Ms. Leatha Roberts is a 62-year-old female with a history of lung cancer, st atus post lobectomy, undergoing chemotherapy as well as coronary artery disease, hypertension, asthm a, COPD, who presented to the emergency room, complaining of visual disturbances. She states that s he was not able to see out of her left visual field. She was then brought to the emergency room dur ing which all imaging was negative. She was out of the tPA window. She was then subsequently admit misael to the stroke floor. While here, the patient underwent a stroke protocol and was placed on aspi rin. The patient was then recommended to have Plavix. However, she states she has already been on Brilinta. She will continue with aspirin and Brilinta for antiplatelet therapy. She has already be en on a statin. An MRI was performed, which confirmed an acute evolving stroke which was most likel y the cause for visual disturbances. The patient was also evaluated by Oncology who stated at this time there is no acute treatment needed and to proceed with stroke management. The patient is doing much better. She states her visual junior have improved; however, she does have some mild residual deficits. She has been doing well and working with physical therapy. She has been cleared for dis charge home and will be discharged home later today with antiplatelet as stated above as well as sta tin. She will continue with chemotherapy as previously arranged with Dr. Levy. The patient is doing much better. She is clinically appropriate for discharge home. She will be discharged home l ater today in stable condition. DISCHARGE DIET: Heart healthy. ACTIVITY: As tolerated. RESTRICTIONS: None. ALLERGIES: CODEINE, NIACIN, and PENICILLIN. CODE STATUS: FULL CODE. I have explained all this to the patient at bedside. She is agreeable to the plan of discharge. Al l questions have been answered. Total time required to prepare for discharge 34 minutes.
--- NOTE | 2017-07-03 06:41 | EKG ---
Test Reason : STROKE ALERT Blood Pressure : / mmHG Vent. Rate : 069 BPM Atrial Rate : 069 BPM P-R Int : 160 ms QRS Dur : 080 ms QT Int : 426 ms P-R-T Axes : 006 028 050 degrees QTc Int : 456 ms Normal sinus rhythm Normal ECG Confirmed by TIMOTEO CHERRY, VIRGINIE ([id number]), editor book LEXUS HESS ([id number]) on 07/03/2017 6:41:24 AM Referred By: Confirmed By:VIRGINIE MAHMOOD MD
== END 2017-07-02 10:40 | disposition home or self-care (01) | DRG 65 ==
LOC: ERS 12:03 → IMCU/EMU 16:00 → 2SE 07-01 14:02
PROVIDERS: ADMIT Internal Medicine; ATTEND Internal Medicine
DX: I63.8 Other cerebral infarction (principal); C34.12 Malignant neoplasm of upper lobe, left bronchus or lung; I50.9 Heart failure, unspecified; I13.0 Hypertensive heart and chronic kidney disease with heart failure and stage 1 through stage 4 chronic kidney disease, or unspecified chronic kidney disease; I69.351 Hemiplegia and hemiparesis following cerebral infarction affecting right dominant side; E78.5 Hyperlipidemia, unspecified; I25.10 Atherosclerotic heart disease of native coronary artery without angina pectoris; F17.210 Nicotine dependence, cigarettes, uncomplicated; Z95.5 Presence of coronary angioplasty implant and graft; F32.9 Major depressive disorder, single episode, unspecified; J44.9 Chronic obstructive pulmonary disease, unspecified; H53.47 Heteronymous bilateral field defects; N18.9 Chronic kidney disease, unspecified
CPT/HCPCS: 36415; 70450; 70551; 71010; 80048; 80053; 80061; 82553; 83690; 83880; 84484; 85025; 85610; 85730; 93005; 93306; 93880; 94640; 96361; 96374; C9113; G8978-GP-CK; G8979-GP-CI; G8987-GO-CI; G8988-GO-CI; G8989-GO-CI; G8996-GN-CH; G8997-GN-CH; J2405; J7620

== ENCOUNTER 2017-07-18 09:45 | Day surgery (SDC) | payer OTHER, SELFPAY ==
[2017-07-18 10:27] VITALS: BP 102/42; TEMP 97.8
[2017-07-18] MEDS ORDERED: Fosaprepitant Dimeglumine 150 MG, Admixture Fee 1 EACH in Sodium Chloride 0.9% 250 ML 1... IVPB SCH (10:30)
[2017-07-18] MEDS ORDERED: Dexamethasone 20 MG, Admixture Fee 1 EACH in Sodium Chloride 0.9% 50 ML IVPB SCH (10:30)
[2017-07-18] MEDS ORDERED: Palonosetron HCl 0.25 MG, Admixture Fee 1 EACH in Sodium Chloride 0.9% 50 ML IVPB SCH (10:30)
[2017-07-18] MEDS ORDERED: Sodium Chloride 0.9% 30 ML ONE (10:37)
[2017-07-18] MEDS ORDERED: CISPLATIN IV SCH (10:45)
[2017-07-18] MEDS ORDERED: SODIUM CHLORIDE IV SCH (10:45)
[2017-07-18] MEDS ORDERED: MANNITOL IV SCH (10:45)
[2017-07-18] MEDS ORDERED: ADMIXTURE FEE IV SCH (10:45)
[2017-07-18] MEDS ORDERED: PEMETREXED IVPB SCH ×2 (10:45)
[2017-07-18] MEDS ORDERED: SODIUM CHLORIDE IVPB SCH ×2 (10:45)
[2017-07-18] MEDS ORDERED: ADMIXTURE FEE IVPB SCH ×2 (10:45)
== END 2017-07-18 11:47 | disposition home or self-care (01) ==
LOC: ONC/OP 09:45
PROVIDERS: ATTEND Internal Medicine Medical Oncology
DX: Z51.11 Encounter for antineoplastic chemotherapy (principal); C34.12 Malignant neoplasm of upper lobe, left bronchus or lung; D75.1 Secondary polycythemia; I25.2 Old myocardial infarction; I25.10 Atherosclerotic heart disease of native coronary artery without angina pectoris; E78.00 Pure hypercholesterolemia, unspecified; F41.9 Anxiety disorder, unspecified; F32.9 Major depressive disorder, single episode, unspecified; J44.9 Chronic obstructive pulmonary disease, unspecified; I13.0 Hypertensive heart and chronic kidney disease with heart failure and stage 1 through stage 4 chronic kidney disease, or unspecified chronic kidney disease; N18.9 Chronic kidney disease, unspecified; I50.9 Heart failure, unspecified; F17.210 Nicotine dependence, cigarettes, uncomplicated; Z79.02 Long term (current) use of antithrombotics/antiplatelets; Z79.82 Long term (current) use of aspirin; Z79.899 Other long term (current) drug therapy; Z88.5 Allergy status to narcotic agent; Z88.0 Allergy status to penicillin; Z88.8 Allergy status to other drugs, medicaments and biological substances; Z95.818 Presence of other cardiac implants and grafts; Z90.2 Acquired absence of lung [part of]; Z90.710 Acquired absence of both cervix and uterus; Z90.89 Acquired absence of other organs; Z86.73 Personal history of transient ischemic attack (TIA), and cerebral infarction without residual deficits; Z86.59 Personal history of other mental and behavioral disorders; Z80.8 Family history of malignant neoplasm of other organs or systems
CPT/HCPCS: 96365; 99211; A4216; G0463; J1100; J1453; J1642; J2150; J2469; J3480; J7050; J9060; J9305

== ENCOUNTER 2017-12-26 08:27 | Outpatient (CLI) | payer OTHER ==
--- NOTE | 2017-12-26 11:09 | CT ---
CT CHEST WITH CONTRAST: INDICATIONS: Stage III lung cancer, status post left upper lobectomy and mediastinal lymph node resection and radi ation therapy. COMPARISON: Prior chest CT angio studies, dated 04/26/2017 and 01/01/2017. TECHNIQUE: Multiple axial tomograms obtained through the chest with IV enhancement. FINDINGS: Changes of a left upper lobectomy again noted. Slight mediastinal shift to the left again noted. Sm all, 5 mm calcified nodule in the anterior mid left lung again noted, unchanged. Right lung remains clear. No mass or nodule identified. Mediastinum unremarkable with no evidence of adenopathy. Imag es through upper abdomen unremarkable. IMPRESSION: Stable chest CT findings. No evidence of recurrence. POS: BLANCA
[2017-12-26] MEDS ORDERED: Iopamidol 370 76% 100 ML VIAL ONE (14:54)
== END 2017-12-26 08:28 | disposition home or self-care (01) ==
LOC: CT 08:27
PROVIDERS: ATTEND Internal Medicine Medical Oncology
DX: C34.90 Malignant neoplasm of unspecified part of unspecified bronchus or lung (principal); D75.1 Secondary polycythemia; Z90.2 Acquired absence of lung [part of]; Z92.3 Personal history of irradiation
CPT/HCPCS: 71260; 82565

== ENCOUNTER 2018-02-08 12:23 | Outpatient (CLI) | payer OTHER | END 2018-02-08 12:24 | disposition home or self-care (01) | LOC: BICMAMMO 12:23 | PROVIDERS: ATTEND Family Medicine | DX: Z12.31 Encounter for screening mammogram for malignant neoplasm of breast (principal); R92.1 Mammographic calcification found on diagnostic imaging of breast | CPT/HCPCS: 77063; 77067 ==

== ENCOUNTER 2018-03-29 19:57 | Observation (INO) | payer SELFPAY ==
[2018-03-29] MEDS ORDERED: Ondansetron ODT 4 MG TAB ONE (21:50)
[2018-03-29 22:18] LABS: Troponin I 0.013 ng/mL (< 0.028)
[2018-03-29] MEDS ORDERED: Metoclopramide HCl 10 MG/2 ML VIAL ONE (23:14)
[2018-03-30] MEDS ORDERED: Acetaminophen 325 MG TAB PO PRN (00:47)
[2018-03-30] MEDS ORDERED: HYDROcodone/Acetaminophen 7.5/325 mg Tablet PO PRN (00:50)
[2018-03-30] MEDS ORDERED: Famotidine 20 MG TAB PO PRN (00:50)
[2018-03-30] MEDS ORDERED: PROVENTIL INHALER 6.7 G (200 INHALATIONS) INH PRN (00:50)
[2018-03-30] MEDS ORDERED: Promethazine 25 MG TAB PO PRN (00:50)
[2018-03-30] MEDS ORDERED: Nitroglycerin 0.4 MG TAB (25 Tab Bottle) SL PRN (01:00)
[2018-03-30 01:09] LABS: Troponin I Less than 0.010 ng/mL (< 0.028)
[2018-03-30 01:41] VITALS: BMI 28.8
[2018-03-30] MEDS ORDERED: Mag-Al 1200 mg/1200 mg/30 ML UDCUP PO PRN (03:52)
[2018-03-30 04:54] LABS: #Lymphocytes 0.4 thou/uL (1.20-3.40); #Monocytes 0.4 thou/uL (0.11-0.59); #Neutrophils 7.5 thou/uL (1.40-6.50); %Eosinophils 0.2 % (0.0-10.0); %Lymphocytes 4.6 % (21.0-51.0); %Monocytes 5.1 % (0.0-10.0); %Neutrophils 90.1 % (42.0-75.0); Mean Corpuscular HGB CONC 32.9 g/dL (32.0-36.0); Mean Corpuscular Hemoglobin 33.4 pg (27.0-31.0); Mean Platelet Volume 6.9 fL (7.4-10.4); Platelet Count 257 thou/uL (130-400); RBC Distribution Width 12.7 % (11.5-14.5); Red Blood Cell (RBC) Count 4.19 mill/uL (4.20-5.40); White Blood Cell (WBC) Count 8.4 thou/uL (4.8-10.8)
--- NOTE | 2018-03-30 05:15 | HP ---
CODE STATUS: FULL CODE. PRIMARY CARE PHYSICIAN: Dr. Juan F Chavez. TIME OF EVALUATION: 9:30 p.m. CHIEF COMPLAINT: Chest pain. HISTORY OF PRESENT ILLNESS: This is a 62-year-old female patient. The patient has past medical history of pancreatitis, hypertension, previous CVA, lung cancer, status post lobectomy, came to the hospital after having severe chest pain was 10/10, retrosternal, radiating to the back, with no clear triggers, no alleviating factors. Symptoms were reported as severe. The pain was dull in nature. REVIEW OF SYSTEMS: Constitutional: No fever, no chills, no generalized weakness. Respiratory: No cough, no sputum production or shortness of breath. Cardiovascular: The patient has chest pain. No palpitation, no shortness of breath. Gastrointestinal: Nausea, no vomiting, diarrhea or abdominal pain. MANDREL MAKER: No dizziness, headache or feeling lightheaded. Genitourinary: No burning with urination. Extremities: No leg swelling. All other systems reviewed and negative except for the findings mentioned above. PAST MEDICAL HISTORY: The patient has a history of pancreatitis, hypertension, asthma, lung cancer. PAST SURGICAL HISTORY: Hysterectomy, tonsillectomy, left upper lobe lobectomy, MediPort placement. FAMILY HISTORY: Reviewed and noncontributory to current presentation. PSYCHIATRIC: The patient has a history of posttraumatic stress disease. SOCIAL HISTORY: The patient drinks every day more than 5 drinks per day, use drugs, abuse marijuana, smokes cigarettes 1 pack per day. DRUG ALLERGIES: Known allergies to CODEINE, NIACIN and PENICILLIN reported. MEDICATIONS: Albuterol, Paxil, Brilinta, metoprolol, aspirin, and atorvastatin. PHYSICAL EXAMINATION: VITAL SIGNS: On presentation, blood pressure 157/87 with heart rate 73, respiratory rate 18, temperature 97.8, oxygen saturation 94, pain 5/10. GENERAL APPEARANCE: Patient is alert, oriented, not in acute distress. HEENT: Eyes, normal conjunctivae. Moist oral mucosa, anicteric. NECK: No JVD. RESPIRATORY: Bilateral air entry. No rales, no wheezing. Symmetric expansion. CARDIOVASCULAR: Normal rate, regular rhythm. No murmurs or gallop. No edema. ABDOMEN: Soft, normal bowel sounds. MUSCULOSKELETAL: Baseline range of motion and strength. No tenderness. SKIN: Warm and dry. No pallor, no rash or redness. NEUROLOGIC: Baseline sensory. No evidence of any new focal deficit speech. Cranial nerve, sensory intact. PSYCHIATRIC: Patient has good mood. No anxiety, oriented, optimal adjustment. LABORATORY DATA: Labs were reviewed. The patient had a white count of 8.8, hemoglobin 14, MCV 91, platelet count 260. Coagulation, D-dimer was positive 1.0. Chemistry: Serum 4.4, sodium 136, potassium 5.0, chloride 100, carbon dioxide 17, anion gap 24, BUN 13, creatinine 1.28, GFR 41. Glucose 139. Lactic acid was normal. LFTs were normal. CK was 26. EKG was reviewed. The patient had sinus arrhythmia currently with a rate of 71. EKG showing no acute changes for ischemia, this was discussed with the performing physician for ER. IMAGING: CT was done and reported as follows: No evidence of aortic dissection or aneurysmal dilation. There is an area of consolidation at the left lung, which may represent post-surgical or post-radiation therapy change. ASSESSMENT AND PLAN: 1. Chest pain, rule out acute coronary syndrome. Patient has a positive history for chest pain, EKG, negative troponin negative, patient may benefit from stress test in the morning. 2. History of coronary artery disease. The patient is on Brilinta, aspirin. Reconciled the home medications, continue for now. Rest of plan as mentioned above. 3. History of hypertension, problem is uncontrolled. Reconcile home meds. We will adjust treatment as needed. 4. History of lung cancer, problem is chronic, seems to be resolved. 5. Deep venous thrombosis prophylaxis. 6. Intractable nausea and vomiting. The patient has a history of gastroparesis , reconciled home meds, we will treat accordingly. 7. Deep venous thrombosis prophylaxis. MTDD
[2018-03-30 05:19] LABS: Anion Gap 20 mmol/L (10-20); BUN (Urea Nitrogen) 15 mg/dL (9.8-20.1); Calc. Creatinine Clearance 51 mL/min (70-130); Carbon Dioxide 22 mmol/L (23-31); Chloride 99 mmol/L (98-107); Estimated GFR-MDRD 40; Glucose 152 mg/dL (80-115); Potassium 4.8 mmol/L (3.5-5.1); Sodium 136 mmol/L (136-145)
[2018-03-30 05:25] LABS: Troponin I Less than 0.010 ng/mL (< 0.028)
[2018-03-30] MEDS: Ondansetron HCl/PF 4 MG/2 ML Vial IVP PRN ×2 (08:40→13:48)
[2018-03-30] MEDS ORDERED: Aspirin 325 MG TAB PO SCH (09:00)
[2018-03-30] MEDS ORDERED: Enoxaparin Sodium 40 MG/0.4 ML SYRINGE SC SCH (09:00)
[2018-03-30] MEDS ORDERED: Labetalol HCl 100 MG/20 ML VIAL SLOW IVP PRN (10:43)
[2018-03-30] MEDS ORDERED: cloNIDine 0.1 MG TAB PO PRN (10:43)
[2018-03-30] MEDS ORDERED: Pantoprazole 40 MG VIAL IVP SCH (11:00)
[2018-03-30 11:12] LABS: ALT (SGPT) 18 U/L (8-55); AST (SGOT) 15 U/L (5-34); Albumin 4.4 g/dL (3.4-4.8); Alkaline Phosphatase 127 U/L (40-150); Bilirubin, Direct 0.1 mg/dL (0.1-0.3); Bilirubin, Total 0.4 mg/dL (0.2-1.2); Lipase 11 U/L (8-78); Protein, Total 7.4 g/dL (6.0-8.3)
[2018-03-30] MEDS: Aspirin 81 mg Enteric Coated Tablet PO SCH (11:33)
[2018-03-30] MEDS: Lisinopril 5 MG TAB PO SCH ×3 (11:34→14:02)
[2018-03-30] MEDS: Metoprolol Tartrate 25 MG TAB PO SCH ×4 (11:34→21:30)
[2018-03-30] MEDS: PARoxetine 20 MG TAB PO SCH ×2 (11:34→13:52)
[2018-03-30] MEDS: Atorvastatin Calcium 10 MG TAB PO SCH (11:34)
[2018-03-30] MEDS: TICAGRELOR 90 MG TABLET PO SCH ×3 (11:35→21:30)
--- NOTE | 2018-03-30 11:51 | ULT ---
GALLBLADDER ULTRASOUND: COMPARISON: June 26, 2007. HISTORY: Nausea. Vomiting. Epigastric pain. TECHNIQUE: Utilizing a multihertz transducer, sonographic imaging of the right upper quadrant is performed in th e longitudinal and transverse plane. FINDINGS: Pancreas is obscured by bowel gas. Increased echogenicity of the liver may be due to hepatic steatosis or hepatocellular disease. Limit ed evaluation for hepatic masses and intrahepatic dilatation. Right hepatic lobe measures 10.6 cm. No sonographic evidence of cholelithiasis, gallbladder wall thickening, or pericholecystic fluid. Ne gative Forbes's sign. Common bile duct diameter is 0.13 cm. No evidence of hydronephrosis. The right kidney measures 8.5 x 4.1 x 5.0 cm. IMPRESSION: 1. No sonographic evidence of cholelithiasis or cholecystitis. 2. Increased echogenicity of the liver which may be due to hepatic steatosis or hepatocellular disea se. Correlate clinically. Correlation made with CT from 03/29/18 which does suggest heterogeneous att enuation of liver with areas of possible fatty infiltration. POS: KEE
[2018-03-30] MEDS: Sodium Chloride 0.9% 1,000 ML IV SCH (13:45)
[2018-03-30] MEDS ORDERED: Lidocaine 1% PF 5 ML VIAL ONE (14:47)
[2018-03-30] MEDS ORDERED: Succinylcholine Chloride 20 MG/ML 10 ml SYRINGE FS ONE (14:47)
[2018-03-30] MEDS ORDERED: PHENYLEPHRINE-NS 100 MCG/ML 10 ML SYRINGE ONE (14:47)
[2018-03-30] MEDS ORDERED: PROPOFOL 200 MG/20 ML VIAL ONE (14:47)
[2018-03-30] MEDS ORDERED: ePHEDrine/0.9% NaCl/PF SYRINGE 50 mg/10 ml ONE (14:47)
--- NOTE | 2018-03-30 15:37 | PDOC.PN ---
- Subjective Encounter Start Date: 03/30/18 Encounter Start Time: 10:30 Patient seen and examined for epigastric/Chest pain. Still has Epigastric pain, nausea with intermittent vomiting. No other complaints. No overnight events - Objective Resuscitation Status: Resuscitation Status FULL:Full Resuscitation MAR Reviewed: Yes Vital Signs & Weight: Vital Signs (12 hours) Temp Pulse Resp BP Pulse Ox 03/30/18 14:02 108 H 03/30/18 11:51 99.2 F 108 H 20 153/80 H 98 03/30/18 08:45 98.1 F 102 H 20 03/30/18 07:49 98.1 F 102 H 20 191/73 H 93 L 03/30/18 07:10 191/93 H 03/30/18 03:40 199/94 H Weight Admit Weight 168 lb Weight 168 lb I&O: 03/29/18 03/30/18 03/31/18 06:59 06:59 06:59 Intake Total 100 Output Total 250 150 Balance -150 -150 Result Diagrams: 03/30/18 04:15 03/30/18 04:15 EKG Reviewed by me: Yes (Tele SR) Phys Exam - Physical Examination In distress due to Epig pain Neck: no JVD Respiratory: no wheezing, no rales, no rhonchi, clear to auscultation bilateral Cardiovascular: RRR, no rub no heaves/pulsations Gastrointestinal: soft, positive bowel sounds epigastric tenderness, No rebound/guarding Musculoskeletal: no edema, pulses present Neurological: non-focal, normal sensation, moves all 4 limbs Psychiatric: A&O x 3 Dx/Plan (1) Chest pain Code(s): R07.9 - CHEST PAIN, UNSPECIFIED Status: Acute Plan: Pain is prob due to gastritis or PUD due to NSAID use. Will consult GI. Also get RUQ ultrasound. Check LFTs and Lipase Comment: Epigastric pain with Hematemesis (2) CAD (coronary artery disease) Code(s): I25.10 - ATHSCL HEART DISEASE OF [place] CORONARY ARTERY W/O ANG PCTRS Status: Chronic Comment: h/o NSTEMI 01/08 - on ASA/Brilinta (3) HTN (hypertension) Code(s): I10 - ESSENTIAL (PRIMARY) HYPERTENSION Status: Chronic (4) HLD (hyperlipidemia) Code(s): E78.5 - HYPERLIPIDEMIA, UNSPECIFIED Status: Chronic Comment: on Statins (5) H/O chronic pancreatitis Code(s): Z87.19 - PERSONAL HISTORY OF OTHER DISEASES OF THE DIGESTIVE SYSTEM Status: Chronic - Plan DVT proph w/SCDs Review of Systems - Review of Systems Constitutional: negative: fever, chills, sweats, weakness, malaise, other Genitourinary: negative: Dysuria, Frequency, Incontinence, Hematuria, Retention , Other - Medications/Allergies Allergies/Adverse Reactions: Allergies Allergy/AdvReac Type Severity Reaction Status Date / Time codeine Allergy Verified 06/30/17 16:07 niacin Allergy Verified 06/30/17 16:07 Penicillins Allergy Verified 06/30/17 16:07 Medications: Current Medications Acetaminophen (Tylenol) 650 mg PO Q4H PRN PRN Reason: Headache/Fever or Pain Hydrocodone Bitart/Acetaminophen (Louise 7.5/325) 1 tab PO Q6H PRN PRN Reason: Moderate Pain (4-6) Al Hydroxide/Mg Hydroxide (Maalox) 30 ml PO Q6H PRN PRN Reason: Heartburn or Indigestion Last Admin: 03/30/18 04:02 Dose: 30 ml Albuterol Sulfate (Proventil Hfa) 2 puff INH Q2H PRN PRN Reason: wheezing / sob Aspirin (Ecotrin) 81 mg PO DAILY [facility] Last Admin: 03/30/18 11:33 Dose: Not Given Atorvastatin Calcium (Lipitor) 10 mg PO DAILY [facility] Last Admin: 03/30/18 11:34 Dose: Not Given Clonidine (Catapres) 0.1 mg PO Q4H PRN PRN Reason: Systolic BP > 180 Famotidine (Pepcid) 20 mg PO HSPRN PRN PRN Reason: reflux Sodium Chloride (Normal Saline 0.9%) 1,000 mls @ 75 mls/hr IV .[id number] [facility] Last Admin: 03/30/18 13:45 Dose: 1,000 mls Labetalol HCl (Normodyne) 10 mg SLOW IVP Q4H PRN PRN Reason: Systolic BP > 180 Lisinopril (Zestril) 5 mg PO DAILY [facility] Last Admin: 03/30/18 14:02 Dose: Not Given Metoprolol Tartrate (Lopressor) 12.5 mg PO BID [facility] Last Admin: 03/30/18 14:01 Dose: Not Given Nitroglycerin (Nitrostat) 0.4 mg SL Q5MIN PRN PRN Reason: .CHEST PAIN Ondansetron HCl (Zofran) 4 mg IVP Q6H PRN PRN Reason: Nausea/Vomiting Last Admin: 03/30/18 13:48 Dose: 4 mg Pantoprazole Sodium (Protonix) 40 mg IVP Q12HR [facility] Paroxetine HCl (Paxil) 10 mg PO DAILY [facility] Last Admin: 03/30/18 13:52 Dose: Not Given Promethazine HCl (Phenergan) 25 mg PO Q6H PRN PRN Reason: Indigestion Ticagrelor (Brilinta) 90 mg PO BID [facility] Last Admin: 03/30/18 11:37 Dose: Not Given
[2018-03-30] MEDS ORDERED: Fentanyl 100 MCG/2 ML VIAL ONE (16:50)
[2018-03-30] MEDS ORDERED: Ondansetron HCl/PF 4 MG/2 ML Vial IVP PRN (17:27)
[2018-03-30] MEDS ORDERED: Promethazine HCl 25 MG/ML VIAL SLOW IVP PRN (17:27)
[2018-03-30] MEDS ORDERED: Promethazine HCl 25 MG/ML VIAL IM PRN (17:27)
[2018-03-30] MEDS ORDERED: Fluconazole In NaCl,Iso-Osm 400 MG in Premix Bag 1 BAG IVPB SCH (18:30)
--- NOTE | 2018-03-30 21:08 | CON ---
DATE OF CONSULTATION: 03/30/2018 GASTROENTEROLOGY CONSULTATION CHIEF COMPLAINT: Epigastric to lower substernal pain with nausea and vomiting. HISTORY OF PRESENT ILLNESS: Ms. Roberts is a 62-year-old woman who had onset of persistent nausea with multiple episodes of vomiting starting yesterday. She vomited some red streaks or clumps of blood w ith the vomitus. She had some coffee ground emesis earlier today. She has had a burning to aching p ain in the lower substernal region that radiates through to her mid back. She has heartburn 2 or 3 t imes per day despite taking ranitidine 300 mg daily. She has had nausea and vomiting on and off over the last year since she had radiation and chemo for lung cancer. She does have some underlying cons tipation as a bowel movement once every 2 or 3 days. She has had no blood in the stool and last jania l movement yesterday was normal. PAST MEDICAL HISTORY: Remote history of pancreatitis, hypertension, asthma, lung cancer. PAST SURGICAL HISTORY: Hysterectomy, tonsillectomy, left upper lobectomy for lung cancer, MediPort p lacement, coronary artery disease with stent placement. FAMILY HISTORY: Negative for GI malignancies. SOCIAL HISTORY: She does have several drinks per day and smokes a pack per day and uses marijuana. ALLERGIES: Allergic to CODEINE, NIACIN, and PENICILLIN. MEDICATIONS AT HOME: Include albuterol, Paxil, Brilinta, metoprolol, aspirin, atorvastatin. REVIEW OF SYSTEMS: Negative x10 systems reviewed except as stated in history of present illness. PHYSICAL EXAMINATION: VITAL SIGNS: Temperature 99.2, pulse 108, blood pressure 153/80. GENERAL: She is in no acute distress, alert and oriented x3. HEENT: Eyes have no scleral icterus. Oropharynx is clear without lesions. NECK: No cervical or supraclavicular lymphadenopathy. LUNGS: Clear to auscultation bilaterally. HEART: Regular rate and rhythm. ABDOMEN: Soft, tender in the upper epigastric region without guarding. Bowel sounds are present. EXTREMITIES: No lower extremity edema. NEUROLOGIC: Cranial nerves are grossly intact. LABORATORY DATA: Creatinine 1.33, which appears to be around her baseline. Bilirubin 0.4, AST 15, A LT 18, alkaline phosphatase 127, lipase 11, albumin 4.4. White blood cell count 8.4, hemoglobin 14.0 and platelets 257. IMPRESSION AND PLAN: Epigastric to lower substernal pain. This could be due to peptic ulcer or eros rey esophagitis. She has had some chronic reflux symptoms and intermittent solid food dysphagia in t he upper substernal region. She does take ibuprofen 600 mg at a time a couple times per week. She h ad an ultrasound on her gallbladder which was unremarkable. There was some evidence of fatty liver b y ultrasound. She does have a history of significant alcohol use with normal LFTs and platelets curr ently. RECOMMENDATIONS: 1. Proton pump inhibitor IV. 2. EGD.
--- NOTE | 2018-03-30 21:26 | OP ---
DATE OF PROCEDURE: 03/30/2018 PROCEDURE: Esophagogastroduodenoscopy with biopsy. PREOPERATIVE DIAGNOSES: Substernal chest pain that radiates through to her back, dysphagia, nausea a nd vomiting, and hematemesis. PROCEDURE IN DETAIL: Informed consent was obtained from the patient. She was sedated with general a nesthesia. The bite-block was placed and the endoscope was advanced easily to the second portion of the duodenum and retroflexion was performed in the stomach. The esophagus had vertical white ulcerat ions throughout the distal two-thirds of the esophagus with apparent overlying plaque, appeared most consistent with fungal esophagitis on initial inspection. The white plaque; however, is not prominen t and this could just be more of a shallow white ulceration. There were concentric rings in the dist al esophagus, but no focal stricture. This could be even viral esophagitis or radiation esophagitis. Multiple biopsies were obtained. The stomach had mild erosive gastritis in the antrum. Retroflexe d views in the stomach were normal. The first portion of the duodenum had erosive duodenitis. Secon d portion of the duodenum was normal. IMPRESSION: 1. Grade D severe erosive esophagitis. 2. White plaques in the esophagus consistent with fungal esophagitis. There could be a component of radiation esophagitis or viral esophagitis. Biopsies were obtained. 3. Erosive duodenitis and gastritis. Gastric biopsies were taken to rule out Helicobacter pylori. RECOMMENDATIONS: 1. Await histopathology. 2. Proton pump inhibitor twice daily. 3. Fluconazole 400 mg today and then 200 mg daily for 13 more days. 4. Recommend follow up EGD in 4 weeks to rule out Rodriguez's and evaluate healing. 5. Soft diet.
[2018-03-30] MEDS: Pantoprazole 40 MG VIAL IVP SCH (21:30)
[2018-03-31 05:50] LABS: #Lymphocytes 0.7 thou/uL (1.20-3.40); #Monocytes 0.6 thou/uL (0.11-0.59); #Neutrophils 5.1 thou/uL (1.40-6.50); %Basophils 0.3 % (0.0-1.0); %Eosinophils 0.5 % (0.0-10.0); %Lymphocytes 11.3 % (21.0-51.0); %Monocytes 9.4 % (0.0-10.0); %Neutrophils 78.4 % (42.0-75.0); Hemoglobin 12.1 g/dL (12.0-16.0); Mean Corpuscular HGB CONC 32.3 g/dL (32.0-36.0); Mean Corpuscular Hemoglobin 33.3 pg (27.0-31.0); Mean Platelet Volume 6.9 fL (7.4-10.4); Platelet Count 217 thou/uL (130-400); Red Blood Cell (RBC) Count 3.65 mill/uL (4.20-5.40); White Blood Cell (WBC) Count 6.5 thou/uL (4.8-10.8)
[2018-03-31 06:08] LABS: ALT (SGPT) 10 U/L (8-55); AST (SGOT) 11 U/L (5-34); Albumin 3.6 g/dL (3.4-4.8); Alkaline Phosphatase 96 U/L (40-150); Anion Gap 13 mmol/L (10-20); BUN (Urea Nitrogen) 15 mg/dL (9.8-20.1); Bilirubin, Total 0.4 mg/dL (0.2-1.2); Calc. Creatinine Clearance 59 mL/min (70-130); Calcium 8.9 mg/dL (7.8-10.44); Carbon Dioxide 26 mmol/L (23-31); Chloride 102 mmol/L (98-107); Estimated GFR-MDRD 46; Globulin 2.5 g/dL (2.4-3.5); Glucose 91 mg/dL (80-115); Lipase 12 U/L (8-78); Potassium 3.7 mmol/L (3.5-5.1); Protein, Total 6.1 g/dL (6.0-8.3); Sodium 137 mmol/L (136-145)
[2018-03-31 07:35] VITALS: TEMP 97.9
[2018-03-31] MEDS: Sodium Chloride 0.9% 1,000 ML IV SCH (08:03)
[2018-03-31] MEDS ORDERED: Fluconazole 100 MG TAB PO SCH (09:00)
[2018-03-31] MEDS: Aspirin 81 mg Enteric Coated Tablet PO SCH (09:52)
[2018-03-31] MEDS: Lisinopril 5 MG TAB PO SCH ×2 (09:52→10:15)
[2018-03-31] MEDS: Metoprolol Tartrate 25 MG TAB PO SCH (09:52)
[2018-03-31] MEDS: PARoxetine 20 MG TAB PO SCH (09:52)
[2018-03-31] MEDS: Atorvastatin Calcium 10 MG TAB PO SCH (09:52)
[2018-03-31] MEDS: Pantoprazole 40 MG VIAL IVP SCH ×2 (09:53→10:16)
[2018-03-31 10:13] VITALS: BP 102/62
[2018-03-31] MEDS: TICAGRELOR 90 MG TABLET PO SCH (10:36)
--- NOTE | 2018-04-01 14:48 | DIS ---
DATE OF DISCHARGE: 03/31/2018 DISCHARGE DISPOSITION: Home. FOLLOWUP: Follow up with primary care physician, Dr. Chavez, in 1 week. Follow up with Gastroenter ology, Dr. Queen, in 1 week. Follow up with Cardiology, Dr. Kaur, as scheduled. A repeat EGD after 4 weeks is recommended. Please follow up on the pathology report. ALLERGIES: CODEINE, NIACIN, and PENICILLIN. The patient was seen and examined on the day of discharge. Denies any new complaints, no chest pain, shortness of breath, palpitations. Chest pain has resolved. DISCHARGE MEDICATIONS: 1. Fluconazole 200 mg daily for the next 12 days. 2. Protonix 40 mg twice a day. 3. All other home medications were resumed. BRIEF HOSPITAL COURSE: The patient is a 62-year-old female with coronary artery disease, status post stent placement, who presented to the emergency room with chest discomfort. Please refer to the his tory and physical dated 03/11/2018 for further details. The patient was admitted to the hospital wit h a diagnosis of chest/epigastric discomfort. Serial troponins were negative. The patient was evalu ated by Gastroenterology, Dr. Queen. The EGD was performed on 04/10/2018 that showed grade D severe erosive esophagitis. There were also white plaques in the esophagus consistent with fungal esophagit is. Biopsies were obtained, which are pending at this time. EGD also showed erosive duodenitis and gastritis. She will need a repeat EGD after 4 weeks. She received 400 mg fluconazole IV followed by 200 mg daily x1. She will continue fluconazole for the next 12 days at home. Chest discomfort/epig astric discomfort has significantly improved. FINAL DIAGNOSES: 1. Chest/epigastric discomfort with nausea and a small amount of hematemesis, resolved. 2. Daily non-steroidal antiinflammatory drug use. The patient was advised to discontinue. 3. Coronary artery disease, status post stent placement in 04/09, on aspirin and Brilinta. 4. Hypertension. 5. Hyperlipidemia. 6. History of chronic pancreatitis. 7. PENICILLIN, CODEINE, and NIACIN allergy. 8. Hepatic steatosis on the right upper quadrant ultrasound this admission. Plan of care was discussed with the patient in detail. She stated understanding.
== END 2018-03-31 10:56 | disposition home or self-care (01) ==
LOC: ERS 19:57 → 2SE 20:04
PROVIDERS: ADMIT Hospitalist; ATTEND Hospitalist
PROC: 0DB58ZX Excision of Esophagus, Via Natural or Artificial Opening Endoscopic, Diagnostic (ICD-10-PCS; principal; 2018-03-30)
PROC: 0DB68ZX Excision of Stomach, Via Natural or Artificial Opening Endoscopic, Diagnostic (ICD-10-PCS; 2018-03-30)
DX: K29.50 Unspecified chronic gastritis without bleeding (principal); K20.9 Esophagitis, unspecified; K29.80 Duodenitis without bleeding; I10 Essential (primary) hypertension; J45.909 Unspecified asthma, uncomplicated; F17.210 Nicotine dependence, cigarettes, uncomplicated; I25.10 Atherosclerotic heart disease of native coronary artery without angina pectoris; E78.5 Hyperlipidemia, unspecified; Z88.5 Allergy status to narcotic agent; Z88.0 Allergy status to penicillin; Z79.899 Other long term (current) drug therapy; Z87.19 Personal history of other diseases of the digestive system; Z79.82 Long term (current) use of aspirin
CPT/HCPCS: 36415; 76705; 80048; 80053; 80076; 82150; 83690; 84484; 85025; 88305; 88312; 88313; 88341; 88342; 93005; 96361; 96372; 96374; 96375; 96376; C9113; G0378; J1450; J1650; J2001; J2405; J2704; J2765; J3010; Q0162

== ENCOUNTER 2018-09-30 09:22 | Outpatient (CLI) | payer MEDICARE ==
--- NOTE | 2018-09-30 11:07 | CT ---
CT CHEST WITH CONTRAST: Comparison: 12-26-17 History: Lung cancer, status post left lobectomy, chemotherapy and radiation therapy. Technique: Multiple contiguous axial images were obtained in a CT of the chest with contrast. Coronal reformats were performed. FINDINGS: Post-surgical changes are seen in the left thorax. There is a linear area of soft tissue density in t he dependent aspect of the remaining left lung. This may represent post radiation therapy change. A c alcified granuloma is seen in the anterior aspect of the remaining left lung. No pneumothorax or pleu ral effusion are seen. No suspicious pulmonary nodules are present. The heart is normal in size without focal cardiac abnormality. Calcifications are seen in the coronar y arteries and aorta. No hilar or mediastinal lymphadenopathy are appreciated. There is a Mediport with its tip in the superior vena cava. The chest wall soft tissues are unremarka ble. The visualized subdiaphragmatic structures are unremarkable. Degenerative changes are seen in th e spine. IMPRESSION: Post-surgical changes in the left thorax without evidence of recurrent or metastatic disease. POS: KEE
[2018-09-30] MEDS ORDERED: ISOVUE-370 76%-LOCM 1 ML ONE (11:58)
== END 2018-09-30 09:23 | disposition home or self-care (01) ==
LOC: BICCT 09:22
PROVIDERS: ATTEND Internal Medicine Hematology & Oncology
DX: Z08 Encounter for follow-up examination after completed treatment for malignant neoplasm (principal); Z85.118 Personal history of other malignant neoplasm of bronchus and lung; Z92.3 Personal history of irradiation; Z92.21 Personal history of antineoplastic chemotherapy; Z98.890 Other specified postprocedural states
CPT/HCPCS: 71260

== ENCOUNTER 2019-04-02 09:50 | Outpatient (CLI) | payer MEDICARE ==
[2019-04-02] MEDS ORDERED: ISOVUE-370 76%-LOCM 1 ML ONE (10:49)
--- NOTE | 2019-04-02 11:05 | CT ---
CT chest with IV contrast HISTORY: Left lung cancer. COMPARISON: 09/30/2018. FINDINGS: Postoperative changes at the left hilum and postradiation scarring at the medial aspect of the left upper lobe are similar in appearance to the previous exam. Old left rib fractures. Azygous fissure at the right apex. No focal parenchymal lung mass. No pleural fluid or mediastinal adenopathy. Small amount of pericardi al fluid at the subcarinal level is again demonstrated. Calcification in the coronary arteries. IMPRESSION: Chronic-type findings are stable. No evidence of recurrent neoplasm.
== END 2019-04-02 09:51 | disposition home or self-care (01) ==
LOC: BICCT 09:50
PROVIDERS: ATTEND Internal Medicine Hematology & Oncology
DX: C34.12 Malignant neoplasm of upper lobe, left bronchus or lung (principal); Z98.890 Other specified postprocedural states
CPT/HCPCS: 71260; 82565; Q9966

== ENCOUNTER 2019-07-30 13:56 | Outpatient (CLI) | payer MEDICARE ==
--- NOTE | 2019-07-30 14:18 | RAD ---
EXAM: Chest PA and lateral: HISTORY: Soft tissue swelling. Swelling is noted in the anterior to mid left chest COMPARISON: 05/02/2018 Correlation: Chest CT 04/02/2019 FINDINGS: Lines and tubes: Stable right-sided Mediport catheter. Heart: Normal cardiac silhouette Aorta: Unremarkable Pulmonary vessels: Normal Costophrenic angles: Costophrenic angles are clear. Lungs: Stable postsurgical changes in the left hemithorax. Compensatory hyperinflation of the right l brandi. Pneumothorax: No pneumothorax Osseous structures: No osseous abnormalities IMPRESSION: No acute cardiopulmonary process.
--- NOTE | 2019-07-30 14:55 | MMO ---
Bilateral MAMMO Bilat Diag DDI+APURVA. CLINICAL HISTORY: Patient is 64 years old and is seen for diagnostic exam. The patient has no family history of breast cancer. The patient has no personal history of cancer. VIEWS: The views performed were: bilateral craniocaudal with tomosynthesis; bilateral mediolateral oblique with tomosynthesis; and bilateral mediolateral with tomosynthesis. FILMS COMPARED: The present examination has been compared to prior imaging studies performed at [facility] on 01/05/2016, 08/10/2016, 02/08/2018 and 07/30/2019. This study has been interpreted with the assistance of computer-aided detection. MAMMOGRAM FINDINGS: There are scattered fibroglandular densities. There are no suspicious masses, suspicious calcifications, or new areas of architectural distortion. There are no mammographic or sonographic abnormalities in the area of palpable concern. The patient is referred back to her clinician. Negative imaging findings should not preclude biopsy if clinical findings are suspicious. IMPRESSION: THERE ARE NO MAMMOGRAPHIC OR SONOGRAPHIC ABNORMALITIES IN THE AREA OF PALPABLE CONCERN. THE PATIENT IS REFERRED BACK TO HER CLINICIAN. NEGATIVE IMAGING FINDINGS SHOULD NOT PRECLUDE BIOPSY IF CLINICAL FINDINGS ARE SUSPICIOUS. THE RESULTS OF THIS EXAM WERE SENT TO THE PATIENT. ACR BI-RADS Category 1 - Negative MAMMOGRAPHY NOTE: 1. A negative mammogram report should not delay a biopsy if a dominant of clinically suspicious mass is present. 2. Approximately 10% to 15% of breast cancers are not detected by mammography. 3. Adenosis and dense breasts may obscure an underlying neoplasm. Reported by: NESHA FAGAN MD Electonically Signed: [id number]
--- NOTE | 2019-07-30 15:12 | ULT ---
LIMITED LEFT BREAST ULTRASOUND: DATE: 07/30/2019. PROVIDED CLINICAL HISTORY: Left breast palpable abnormality. FINDINGS: Limited sonographic interrogation was performed of the left breast in the 2 o'clock position in the r egion of reported palpable concern. Sonography was also performed of the soft tissues inferior to th e left clavicle in an area of patient palpable concern. The sonographic appearance of the tissues in both of these regions is normal. IMPRESSION: BIRADS category 1 - negative. Negative imaging findings should not preclude further evaluation of a clinically suspicious finding. The patient is referred back to her clinician. POS: OFF
== END 2019-07-30 13:57 | disposition home or self-care (01) ==
LOC: BICMAMMO 13:56
PROVIDERS: ATTEND Family Medicine
DX: N63.20 Unspecified lump in the left breast, unspecified quadrant (principal)
CPT/HCPCS: 71046; 76642; 77066; G0279

== ENCOUNTER 2019-10-02 09:13 | Outpatient (CLI) | payer MEDICARE ==
--- NOTE | 2019-10-02 11:18 | CT ---
CT OF THE CHEST WITH IV CONTRAST INDICATION: Lung cancer COMPARISON: CT of the thorax dated April 02, 2019 and September 30, 2018 FINDINGS: CHEST: Lungs: Postprocedural change of a left lower lobectomy is stable. Radiation fibrosis involving the me dial aspect of the left upper lobe is stable. No new suspicious pulmonary nodule is demonstrated. Calcified granuloma is seen within the left upper lobe. Azygous fissure is again seen within the righ t upper lobe. Scattered emphysema is similar appearing. Pleural space: No effusion. Mediastinum: Coronary artery and thoracic aortic calcifications are again noted. There is a right sub clavian chest wall port in place. No pathologically enlarged lymph nodes are evident. Upper abdomen:No acute abnormality. Osseous structures: There is a stable healed anterolateral left fifth rib fracture. No suspicious ost eolytic or osteoblastic lesion is identified. There is scattered degenerative and osteoarthritic changes. Soft tissues:Normal. IMPRESSION: 1. Stable examination. No evidence to suggest recurrent malignancy.
[2019-10-02] MEDS ORDERED: Iopamidol-370 76% 500 ML 1 ML ONE (13:33)
== END 2019-10-02 09:14 | disposition home or self-care (01) ==
LOC: BICCT 09:13
PROVIDERS: ATTEND Internal Medicine Hematology & Oncology
DX: C34.90 Malignant neoplasm of unspecified part of unspecified bronchus or lung (principal)
CPT/HCPCS: 71260; 82565; Q9967

== ENCOUNTER 2020-05-25 10:35 | Outpatient (CLI) | payer MEDICARE ==
--- NOTE | 2020-05-25 12:46 | CT ---
CT CHEST WITH CONTRAST: INDICATION: History of left upper lobe lung cancer. Status post lobectomy. Followup. COMPARISON: Comparison is made to CT chest 10/02/2019. FINDINGS: Postoperative changes in the left chest again noted. Calcified granulomata upper lung field is stabl e. Chronic parenchymal changes appear stable. Post radiation changes along the left hilar region ap pears stable with parenchymal changes along the mediastinum. Mild pleural thickening in the left nallely g base is stable. Right lung remains clear. The mediastinum is unremarkable, slightly shifted to th e left. No evidence of adenopathy. Osseous structures appear unremarkable and stable. Vertebral bodies maintain height and alignment. Images through the upper abdomen unremarkable. The visualized liver, spleen, and pancreas are unrema rkable. IMPRESSION: Stable CT chest. POS: AGW
[2020-05-25] MEDS ORDERED: Iopamidol-370 76% 500 ML 1 ML ONE (13:17)
== END 2020-05-25 10:36 | disposition home or self-care (01) ==
LOC: BICCT 10:35
PROVIDERS: ATTEND Internal Medicine Hematology & Oncology
DX: C34.12 Malignant neoplasm of upper lobe, left bronchus or lung (principal)
CPT/HCPCS: 71260; 82565; Q9967

== ENCOUNTER 2020-06-18 09:29 | Inpatient (IN) | payer MEDICARE, OTHER ==
--- NOTE | 2020-06-18 10:10 | RAD ---
Chest AP view INDICATION: History of lung cancer, nausea, vomiting and diarrhea COMPARISON: Prior exam dated March 29, 2018 FINDINGS: Lungs: The small left hemithorax is stable. Mild scarring seen along the medial aspect of the left u pper lung is stable. Calcified granuloma in the midlung is stable. Right lung remains clear and hyperaerated. Cardiac silhouette: Right chest wall port is stable. Pulmonary vasculature: Normal Pleural spaces: No pleural effusion or pneumothorax is demonstrated. Upper abdomen: No abnormality seen. Osseous structures: No acute osseous abnormality. Additional findings: None. IMPRESSION: Stable postprocedural change of a left lobectomy. No acute cardiopulmonary abnormality.
[2020-06-18] MEDS ORDERED: Morphine 4 MG/ML VIAL ONE (10:19)
[2020-06-18] MEDS ORDERED: Ondansetron PF 4 MG/2 ML Vial ONE (10:19)
[2020-06-18 10:21] LABS: Hemoglobin 14.8 g/dL (12.0-16.0); Mean Platelet Volume 8.3 fL (7.4-10.4); Platelet Count 229 thou/uL (130-400); Red Blood Cell (RBC) Count 4.13 mill/uL (4.20-5.40); White Blood Cell (WBC) Count 6.1 thou/uL (4.8-10.8)
[2020-06-18 10:35] LABS: #Basophils 0.1 thou/uL (0.0-0.2); #Lymphocytes 0.5 thou/uL (1.20-3.40); #Monocytes 0.3 thou/uL (0.11-0.59); #Neutrophils 5.3 thou/uL (1.40-6.50); %Eosinophils 0.2 % (0.0-10.0); %Lymphocytes 7.9 % (21.0-51.0); %Monocytes 4.1 % (0.0-10.0); %Neutrophils 86.8 % (42.0-75.0); MDiff Complete? YES; Macrocytosis SLIGHT = 6-15 cells (100X) (0-5/hpf); Mean Corpuscular HGB CONC 32.2 g/dL (32.0-36.0); Mean Corpuscular Hemoglobin 35.8 pg (27.0-31.0); RBC Distribution Width 14.8 % (11.5-14.5)
[2020-06-18 10:42] LABS: ALT (SGPT) 21 U/L (8-55); AST (SGOT) 32 U/L (5-34); Albumin 3.3 g/dL (3.4-4.8); Alkaline Phosphatase 178 U/L (40-110); Anion Gap 19 mmol/L (10-20); BUN (Urea Nitrogen) 9 mg/dL (9.8-20.1); Bilirubin, Total 0.9 mg/dL (0.2-1.2); CK (CPK) 45 U/L (29-168); Calc. Creatinine Clearance 0 mL/min (70-130); Calcium 8.5 mg/dL (7.8-10.44); Carbon Dioxide 22 mmol/L (23-31); Chloride 100 mmol/L (98-107); Estimated GFR-MDRD 51; Globulin 3.3 g/dL (2.4-3.5); Glucose 180 mg/dL (80-115); Lipase 42 U/L (8-78); Protein, Total 6.6 g/dL (6.0-8.3); Sodium 137 mmol/L (136-145)
[2020-06-18 10:51] LABS: Troponin I 0.083 ng/mL (< 0.028)
[2020-06-18 10:58] LABS: Bilirubin Negative (Negative); Blood, Urine Negative (Negative); Clarity Clear (Clear); Glucose, Urine (Dipstick) Normal (Negative); Ketone, Urine Negative (Negative); Leukocyte Negative Leu/uL (Negative); Nitrite Negative (Negative); Protein, Urine (Dipstick) Negative (Neg-Trace); Specific Gravity, Urine 1.013 (1.002-1.036); Urobilinogen Normal mg/dL (Less than 2); pH, Urine 7.5 (5.0-9.0)
--- NOTE | 2020-06-18 11:13 | CT ---
EXAM: CT Abdomen Pelvis W Con PROVIDED CLINICAL HISTORY: Nausea vomiting and diarrhea COMPARISON: 05/25/[address] FINDINGS: There is stable small-volume left pleural fluid. The liver demonstrates changes of diffuse fatty infiltration. The solid abdominal organs demonstrate an otherwise unremarkable CT appearance. There is moderate gallbladder distention without overt pericholecystic inflammatory change. The appen marek appears normal. There is no bowel dilatation, inflammatory fat stranding, free fluid or free air apparent. Vascular calcifications are noted involving the abdominal aorta and its branches. The osseous structures demonstrate no concerning lytic or blastic lesions. Stable appearing right 10t h and 11th posterior rib fractures. IMPRESSION: 1. Moderate gallbladder distention without overt pericholecystic inflammatory change. Consider right upper quadrant ultrasound as indicated. 2. Chronic findings as above.
[2020-06-18] MEDS ORDERED: Cefepime 2 GM VIAL ONE (11:22)
[2020-06-18] MEDS ORDERED: Vancomycin 1.5 GRAM/300 ML BAG 1.5 GM in Premix Bag 1 BAG IVPB SCH (11:30)
[2020-06-18] MEDS ORDERED: Iopamidol-370 76% 500 ML 1 ML ONE (11:34)
--- NOTE | 2020-06-18 12:15 | ULT ---
EXAM: US Gallbladder RUQ CLINICAL HISTORY: Right upper quadrant pain. COMPARISON: 03/30/2018 FINDINGS: Pancreas: Obscured by bowel gas Liver: Heterogeneous hepatic parenchymal echotexture may be due to hepatic steatosis or hepatocellula r disease. Subsequent limited fashion for hepatic masses and intrahepatic biliary dilatation. Right hepatic lobe: 14.6 cm Gallbladder: No sonographic evidence of cholelithiasis, gallbladder wall thickening or pericholecysti c fluid. Nonspecific gallbladder distention. Correlate for possible prolonged fasting state. Forbes's sign:Negative Portal Vein: Patent. Appropriate directional flow Bile ducts: 0.3 cm common bile duct diameter Right kidney: There is right renal cortical thinning. No hydronephrosis.. Right kidney measures 9.0 x 5.2 x 4.1 cm in length. IMPRESSION: 1. No sonographic evidence of cholelithiasis or cholecystitis. 2. Distended gallbladder, nonspecific. Correlate clinically. Additional imaging if clinically warrant ed.
[2020-06-18] MEDS ORDERED: Aspirin Chewable 81 MG TAB ONE (12:32)
[2020-06-18] MEDS ORDERED: Acetaminophen 325 MG TAB PO PRN (13:48)
[2020-06-18] MEDS ORDERED: Senokot S 8.6-50 MG TAB PO PRN (13:48)
[2020-06-18] MEDS ORDERED: Nitroglycerin 0.4 MG TAB (25 Tab Bottle) SL PRN (13:50)
[2020-06-18] MEDS ORDERED: Non-Formulary Item 1 EACH (Albuterol Sulfate 200 PUFF Inh) INH PRN (13:50)
[2020-06-18] MEDS ORDERED: Sodium Chloride 0.9% 1,000 ML IV SCH (14:00)
[2020-06-18 14:13] LABS: CKMB 1.8 ng/mL (0-6.6)
[2020-06-18 14:21] LABS: Lactic Acid 1.7 mmol/L (0.5-2.2)
[2020-06-18 15:21] VITALS: BMI 27.0
[2020-06-18] MEDS: Sodium Chloride 0.9% 1,000 ML IV SCH (16:22)
[2020-06-18] MEDS: Ondansetron ODT 4 MG TAB PO PRN (16:32)
--- NOTE | 2020-06-18 16:54 | HP ---
CHIEF COMPLAINT: Abdominal pain, nausea, and vomiting. HISTORY OF PRESENT ILLNESS: This is a 65-year-old female with a history of hypertension, hyperlipidemia, presenting with a 3-day history of abdominal pain, preceded by nausea, vomiting, diarrhea of 5-day duration. Though she had a poor p.o. intake initially, blood pressure was 87/67 and tachycardia with a rate of 110. She has a history of left upper lobe partial lobectomy and followed with Dr. Reyes regularly for periodic checkup. She does have a history of pancreatitis and previous CVA as well as lung cancer as mentioned above. With her abdominal pain, they did the CT scan, that was nonrevealing. Liver function test and lipase were negative. She had a severe dehydration with a high lactic acid level. She received a couple of liter of fluid as well as cefepime and vanc along with aspirin for her indeterminate troponin. Her lung cancer was roughly 3 years ago. She completed chemo radiations. She undergone a left upper lobe partial lobectomy along with 12 lymph nodes dissection. She is on remission currently. She follows with CT chest every 6 months and the last imaging study was negative for any METS. The patient will be admitted for further evaluation. REVIEW OF SYSTEMS: She did not have any fever or chills, but she had overall poor p.o., leading her to be a little jittery and fatigued as well. She did not have any productive cough. No chest pain, PND, orthopnea or lower extremity edema. She did not notice any blood in the urine or stool. Her diarrhea is mostly loose. She did not take any recently antibiotic. Denies leg swelling. No headache or blurriness. MEDICAL HISTORY: Pancreatitis, hypertension, asthma, and left upper lobe partial lobectomy. SURGICAL HISTORY: Hysterectomy, tonsillectomy, left upper lobe lobectomy, and MediPort placement. FAMILY HISTORY: Noncontributory. SOCIAL HISTORY: She does smoke and drinks 3 cocktails daily. FAMILY HISTORY: Father did not have any health issue. Mother is still alive. MEDICATIONS: 1. Topiramate 1 tablet twice a day, unknown dose. 2. 10 mg as needed. 3. Aspirin 81 mg daily. 4. Lopressor 12.5 mg twice a day. 5. Paxil 10 mg daily. PHYSICAL EXAMINATION: VITAL SIGNS: Temperature 97.8, pulse 72, blood pressure 106/63, and saturating 98% on room air. GENERAL: The patient is alert, oriented, and nontoxic-appearing. She appears well. She has some soreness on her right quadrant. Otherwise, she has no complaints at this point. HEENT: Pupils are equal, round, and reactive to light. Anicteric. Mucous membranes moist. CARDIOVASCULAR: Regular rate and rhythm without murmurs, rubs or gallops. LUNGS: Clear to auscultation bilaterally without wheezing, rales or rhonchi. ABDOMEN: Soft, nontender, and nondistended. Good bowel sounds. EXTREMITIES: Without pitting edema. LABORATORY DATA: Significant for no elevated white count. Her bicarb is 22, blood glucose 180, lactic acid 7.2, and alkaline phosphatase 178. Troponin 0.8 and 0.6. Lipase is 42. AST [address] abdomen showed moderate gallbladder distention overall without overt pericholecystic inflammatory changes. Abdominal ultrasound, no evidence of cholelithiasis or cholecystitis. IMPRESSION AND PLAN: 1. This is a 65-year-old female with a history of chronic pancreatitis, presenting with abdominal pain, discomfort, nausea, vomiting, and diarrhea. Initial evaluation showed low blood pressure probably secondary to poor p.o. intake of 5-day duration. 2. Sepsis present on admission secondary to dehydration with evidence of lactic acid elevation. 3. Indeterminate troponin. The patient appears well. Even though there is a little concerning for gallbladder abnormality given elevated alkaline phosphatase as well as abdominal CT showing some gallbladder distention without pericholecystic inflammatory changes. In this regard, we will consult General Surgery for evaluation. I will also order the HIDA scan as ultrasound was quite indeterminate. NSTEMI, type 2 metabolic mismatch, probably due to demand ischemia secondary to overall picture of dehydration and low blood pressure. We will cycle the troponin. If it remains abnormal, we will consider consulting Cardiology in the morning. Rest of the management based on the clinical course. Job ID: [id number] [facility]
[2020-06-18 17:22] LABS: CKMB 1.9 ng/mL (0-6.6)
[2020-06-18] MEDS ORDERED: Morphine 4 MG/ML VIAL SLOW IVP PRN (18:07)
[2020-06-18] MEDS: Ondansetron PF 4 MG/2 ML Vial IVP PRN ×2 (19:34→23:45)
[2020-06-18] MEDS: Metoprolol Tartrate 25 MG TAB PO SCH (20:50)
[2020-06-18] MEDS: TICAGRELOR 90 MG TABLET PO SCH (20:52)
[2020-06-18] MEDS: Cefepime 1 GM in Sodium Chloride 0.9% 100 ML IVPB SCH (23:38)
[2020-06-19] MEDS: Sodium Chloride 0.9% 1,000 ML IV SCH (02:19)
[2020-06-19 04:32] LABS: ALT (SGPT) 12 U/L (8-55); AST (SGOT) 16 U/L (5-34); Albumin 2.3 g/dL (3.4-4.8); Alkaline Phosphatase 108 U/L (40-110); Anion Gap 9 mmol/L (10-20); BUN (Urea Nitrogen) 9 mg/dL (9.8-20.1); Bilirubin, Total 0.5 mg/dL (0.2-1.2); Calc. Creatinine Clearance 77 mL/min (70-130); Calcium 7.1 mg/dL (7.8-10.44); Carbon Dioxide 24 mmol/L (23-31); Chloride 108 mmol/L (98-107); Estimated GFR-MDRD 72; Globulin 2.1 g/dL (2.4-3.5); Glucose 107 mg/dL (80-115); Potassium 3.1 mmol/L (3.5-5.1); Protein, Total 4.4 g/dL (6.0-8.3); Sodium 138 mmol/L (136-145)
[2020-06-19 05:56] LABS: #Eosinphils 0.1 thou/uL (0.0-0.7); #Lymphocytes 0.9 thou/uL (1.20-3.40); #Monocytes 0.4 thou/uL (0.11-0.59); #Neutrophils 3.6 thou/uL (1.40-6.50); %Basophils 0.7 % (0.0-1.0); %Eosinophils 2.2 % (0.0-10.0); %Lymphocytes 18.3 % (21.0-51.0); %Monocytes 7.6 % (0.0-10.0); %Neutrophils 71.2 % (42.0-75.0); Hemoglobin 10.7 g/dL (12.0-16.0); Mean Corpuscular Hemoglobin 37.3 pg (27.0-31.0); Mean Platelet Volume 7.8 fL (7.4-10.4); Platelet Count 155 thou/uL (130-400); RBC Distribution Width 14.8 % (11.5-14.5); Red Blood Cell (RBC) Count 2.86 mill/uL (4.20-5.40); White Blood Cell (WBC) Count 5.1 thou/uL (4.8-10.8)
[2020-06-19] MEDS: Cefepime 1 GM in Sodium Chloride 0.9% 100 ML IVPB SCH (12:34)
[2020-06-19] MEDS: TICAGRELOR 90 MG TABLET PO SCH ×2 (12:46→20:04)
[2020-06-19] MEDS: Ondansetron PF 4 MG/2 ML Vial IVP PRN ×2 (12:48→17:19)
[2020-06-19] MEDS: Aspirin 81 mg Enteric Coated Tablet PO SCH (12:52)
[2020-06-19] MEDS: Atorvastatin Calcium 10 MG TAB PO SCH (12:52)
[2020-06-19] MEDS: Metoprolol Tartrate 25 MG TAB PO SCH (12:53)
[2020-06-19] MEDS: PARoxetine 20 MG TAB PO SCH (12:54)
[2020-06-19] MEDS: Morphine 2 MG/ML VIAL SLOW IVP PRN ×2 (13:07→17:18)
[2020-06-19] MEDS: Potassium Chloride 10 MEQ in Premix Bag 1 BAG IVPB SCH ×4 (13:21→15:17)
--- NOTE | 2020-06-19 13:25 | NM ---
EXAM: Nuclear medicine hepatobiliary scan HISTORY: Right upper quadrant abdominal pain TECHNIQUE: A nuclear medicine hepatobiliary scan was performed after administration of 4.7 mCi of tyrel hnetium 99m mebrofenin. A gallbladder ejection fraction was performed after administration of CCK. COMPARISON: Gallbladder ultrasound 06/18/2020 FINDINGS: Prompt uptake of the radiopharmaceutical by the liver is seen. No photopenic liver defects are seen. Biliary activity is seen within 5 minutes. Gallbladder activity is seen within 5 minutes. Bowel activity is seen within 60 minutes. A gallbladder ejection fraction was calculated at 84%. IMPRESSION: Normal hepatobiliary scan
[2020-06-19] MEDS ORDERED: Potassium Chloride 20 MEQ TAB PO SCH (15:15)
--- NOTE | 2020-06-19 16:08 | PDOC.HOSPP ---
- Subjective Encounter Date: 06/19/20 Encounter Time: 13:00 Subjective: The patient reports her abdominal pain is 5/10. This morning her pain was a 10/10 in her RUQ, she described it as a sharp spasm. She also reported some pain in mid stomach area radiating to her back. She has had abdominal pain for the past five days that is intermittent. She vomited yesterday, it was yellow in color. She also reports an episode of explosive diarrhea this morning. Did not eat outside, has not travelled anywhere. No blood in her diarrhea The patient drinks three beers daily. She quit smoking marijuana recently due to cyclic vomiting - Objective Vital Signs & Weight: Vital Signs (12 hours) Temp Pulse Resp BP Pulse Ox 06/19/20 15:17 97.6 F 78 16 123/66 97 06/19/20 12:39 97.6 F 80 15 135/68 98 06/19/20 07:24 97.5 F L 69 16 108/64 99 Weight Admit Weight 157 lb 6.4 oz Weight 157 lb 6.4 oz Result Diagrams: 06/19/20 05:40 06/19/20 03:58 Hospitalist ROS - Review of Systems Constitutional: denies: fever, chills - Medication Medications: Active Medications Generic Name Dose Route Start Last Admin Trade Name Freq PRN Reason Stop Dose Admin Aspirin 81 mg 06/19/20 09:00 06/19/20 12:52 Aspirin 81 Mg Enteric Coated Tablet PO 81 mg DAILY REINA Administration Atorvastatin Calcium 10 mg 06/19/20 09:00 06/19/20 12:52 Atorvastatin Calcium 10 Mg Tab PO 10 mg DAILY REINA Administration Metoprolol Tartrate 12.5 mg 06/18/20 21:00 06/19/20 12:53 Metoprolol Tartrate 25 Mg Tab PO 12.5 mg BID REINA Administration Morphine Sulfate 2 mg 06/19/20 13:00 06/19/20 13:07 Morphine 2 Mg/Ml Vial SLOW IVP 2 mg Q4H PRN Administration Pain Ondansetron HCl 4 mg 06/18/20 13:48 06/18/20 16:32 Ondansetron Odt 4 Mg Tab PO 4 mg Q6H PRN Administration Nausea/Vomiting Ondansetron HCl 4 mg 06/18/20 16:59 06/19/20 12:48 Ondansetron Pf 4 Mg/2 Ml Vial IVP 4 mg Q4H PRN Administration Nausea/Vomiting Pantoprazole Sodium 40 mg 06/18/20 21:00 06/19/20 12:54 Pantoprazole 40 Mg Tab PO 40 mg BID REINA Administration Paroxetine HCl 10 mg 06/19/20 09:00 06/19/20 12:54 Paroxetine 20 Mg Tab PO 10 mg DAILY REINA Administration Potassium Chloride 40 meq 06/19/20 15:15 06/19/20 16:02 Potassium Chloride 20 Meq Tab PO 06/19/20 17:15 40 meq NOW REINA Administration Ticagrelor 90 mg 06/18/20 21:00 06/19/20 12:46 Ticagrelor 90 Mg Tablet PO Not Given BID REINA - Exam General Appearance: NAD, awake alert Eye: PERRL ENT: normocephalic atraumatic, no oropharyngeal lesions Neck: no JVD Heart: RRR, no murmur, no gallops, no rubs Respiratory: CTAB, no wheezes, no rales, no ronchi Gastrointestinal - other findings: variable tenderness, epigastric and LLQ more consistent Extremities: no cyanosis, no clubbing, no edema Hosp A/P - Plan CT abdomen: distended GB Abd US: distended GB ECHO: EF 50-55% diastolic dysfunction, mild MR, mild TR Chest X ray: negative This is 65 year old female who presented with abdominal pain, nausea/vomiting #Abdominal pain - possibly gastroenteritis vs hyperemesis syndrome #Diarrhea - Abd US and CT abdomen showed distended gallbladder. - HIDA scan was negative. Surgery consulted, recommended no surgery for now. No report of dilated CBD on CT scan. LFT normal today - patient reports diarrhea, for now will send stool culture, ova/parasite, C diff. Will discontinue cefepime for now - lipase was normal -consider GI consult if no improvement Hypokalemia - potassium 3.1, will replace Lactic acidosis - from severe dehydration - normalized Erosive esophagitis - noted on last EGD. Continue PPI Alcoholism - drinks three beers daily. Monitor for any withdrawal
[2020-06-20] MEDS: Morphine 2 MG/ML VIAL SLOW IVP PRN ×4 (02:01→22:11)
[2020-06-20] MEDS: Ondansetron PF 4 MG/2 ML Vial IVP PRN ×3 (02:02→17:38)
[2020-06-20] MEDS: Metoprolol Tartrate 25 MG TAB PO SCH ×2 (02:08→09:04)
[2020-06-20] MEDS: Atorvastatin Calcium 10 MG TAB PO SCH (09:03)
[2020-06-20] MEDS: Aspirin 81 mg Enteric Coated Tablet PO SCH (09:03)
[2020-06-20] MEDS: PARoxetine 20 MG TAB PO SCH (09:06)
[2020-06-20] MEDS: TICAGRELOR 90 MG TABLET PO SCH (09:06)
[2020-06-20 09:35] LABS: ALT (SGPT) 12 U/L (8-55); AST (SGOT) 16 U/L (5-34); Albumin 2.5 g/dL (3.4-4.8); Alkaline Phosphatase 119 U/L (40-110); Anion Gap 13 mmol/L (10-20); BUN (Urea Nitrogen) 8 mg/dL (9.8-20.1); Bilirubin, Total 0.5 mg/dL (0.2-1.2); Calc. Creatinine Clearance 82 mL/min (70-130); Calcium 7.4 mg/dL (7.8-10.44); Carbon Dioxide 19 mmol/L (23-31); Chloride 108 mmol/L (98-107); Estimated GFR-MDRD 77; Globulin 2.3 g/dL (2.4-3.5); Glucose 120 mg/dL (80-115); Potassium 4.1 mmol/L (3.5-5.1); Protein, Total 4.8 g/dL (6.0-8.3); Sodium 136 mmol/L (136-145)
[2020-06-20 10:27] LABS: Hemoglobin 10.7 g/dL (12.0-16.0); Mean Corpuscular HGB CONC 32.8 g/dL (32.0-36.0); Mean Corpuscular Hemoglobin 36.5 pg (27.0-31.0); Platelet Count 152 thou/uL (130-400); RBC Distribution Width 14.4 % (11.5-14.5); Red Blood Cell (RBC) Count 2.92 mill/uL (4.20-5.40); White Blood Cell (WBC) Count 5.2 thou/uL (4.8-10.8)
[2020-06-20 12:20] LABS: SARS-CoV-2 MS2 Positive; SARS-CoV-2 N Gene Negative; SARS-CoV-2 S Gene Negative; SARS-CoV-2 by NAA Not Detected (NotDetected); SARS-CoV-2 orf1ab Negative
--- NOTE | 2020-06-20 12:35 | PDOC.HOSPP ---
- Subjective Encounter Date: 06/20/20 Encounter Time: 08:00 Subjective: The patient continues to have abdominal pain, states it is crampy in her RUQ this time. It comes and goes. She had some broth this morning and had some dry heaving. She vomited yesterday She has had no further episodes of diarrhea. She states normally her bowel movements for the past three years alternate between constipation and diarrhea. She is not able to eat big portion sizes and gets bloated. She states this st arted after she got chemotherapy for lung cancer, states she received platin based therapy - Objective Vital Signs & Weight: Vital Signs (12 hours) Temp Pulse Resp BP Pulse Ox 06/20/20 11:59 98.6 F 69 16 99/46 L 96 06/20/20 07:30 97.5 F L 70 17 132/65 98 06/20/20 02:00 108 H 18 124/66 97 Weight Admit Weight 157 lb 6.4 oz Weight 157 lb 6.4 oz I&O: 06/19/20 06/20/20 06/21/20 06:59 06:59 06:59 Intake Total 800 Balance 800 Result Diagrams: 06/20/20 10:17 06/20/20 09:10 Hospitalist ROS - Review of Systems Constitutional: denies: fever, chills - Medication Medications: Active Medications Generic Name Dose Route Start Last Admin Trade Name Freq PRN Reason Stop Dose Admin Aspirin 81 mg 06/19/20 09:00 06/20/20 09:03 Aspirin 81 Mg Enteric Coated Tablet PO 81 mg DAILY REINA Administration Atorvastatin Calcium 10 mg 06/19/20 09:00 06/20/20 09:03 Atorvastatin Calcium 10 Mg Tab PO 10 mg DAILY REINA Administration Metoprolol Tartrate 12.5 mg 06/18/20 21:00 06/20/20 09:04 Metoprolol Tartrate 25 Mg Tab PO 12.5 mg BID REINA Administration Morphine Sulfate 2 mg 06/19/20 13:00 06/20/20 09:07 Morphine 2 Mg/Ml Vial SLOW IVP 2 mg Q4H PRN Administration Pain Ondansetron HCl 4 mg 06/18/20 13:48 06/18/20 16:32 Ondansetron Odt 4 Mg Tab PO 4 mg Q6H PRN Administration Nausea/Vomiting Ondansetron HCl 4 mg 06/18/20 16:59 06/20/20 09:07 Ondansetron Pf 4 Mg/2 Ml Vial IVP 4 mg Q4H PRN Administration Nausea/Vomiting Pantoprazole Sodium 40 mg 06/18/20 21:00 06/20/20 09:06 Pantoprazole 40 Mg Tab PO 40 mg BID REINA Administration Paroxetine HCl 10 mg 06/19/20 09:00 06/20/20 09:06 Paroxetine 20 Mg Tab PO 10 mg DAILY REINA Administration - Exam General Appearance: NAD, awake alert Eye: PERRL, anicteric sclera ENT: normocephalic atraumatic, no oropharyngeal lesions Neck: no JVD Heart: RRR, no murmur, no gallops, no rubs Respiratory: CTAB, no wheezes, no rales, no ronchi Gastrointestinal: soft, non-distended, no guarding, no rigidity, diminished bowl sounds Gastrointestinal - other findings: diffuse tenderness, but worst in RUQ Extremities: no cyanosis, no clubbing, no edema Skin: normal turgor, no lesions, no rashes Neurological: cranial nerve grossly intact, normal sensation to touch, no focal deficits, no new deficit Hosp A/P - Plan CT abdomen: distended GB Abd US: distended GB ECHO: EF 50-55% diastolic dysfunction, mild MR, mild TR Chest X ray: negative This is 65 year old female who presented with abdominal pain, nausea/vomiting #Abdominal pain - possibly IBS vs esophagitis vs mesenteric ischemia? - Abd US and CT abdomen showed distended gallbladder. Lipase was normal . Lactic acid 7.2 on admisson, but no blood in stools. - HIDA scan was negative. No surgical intervention per surgery - LFT shows slightly abnormal ALP today, maybe dehydration. Consider fluids if urine output drops. - will check celiac panel - continue oral PPI - clear liquid diet as tolerated - GI consult Macrocytic anemia - Hb 10, MCV 111 - possibly from alcoholism. Check B12/folate TSH #Diarrhea- resolved - stool cultures ordered, but not done since no BM today yet Lactic acidosis - from severe dehydration - normalized Erosive esophagitis - noted on last EGD. Continue PPI Alcoholism - drinks three beers daily. Monitor for any withdrawal
[2020-06-20] MEDS ORDERED: Albuterol Sulfate 2.5 mg/3 ml Neb NEB PRN (12:36)
[2020-06-20] MEDS ORDERED: Sodium Chloride 0.9% 1,000 ML IV SCH ×2 (14:00→15:30)
[2020-06-20] MEDS ORDERED: Sodium Chloride 0.9% 250 ML IV SCH (14:00)
[2020-06-20] MEDS ORDERED: Sodium Chloride 0.9% 500 ML IV SCH (14:45)
[2020-06-20 15:14] LABS: Lactic Acid 2.4 mmol/L (0.5-2.2)
[2020-06-20] MEDS: Sodium Chloride 0.9% 1,000 ML IV SCH (16:30)
[2020-06-20] MEDS: Lidocaine Patch Removal TOP SCH ×2 (20:18→21:01)
[2020-06-20] MEDS: Ondansetron ODT 4 MG TAB PO PRN (20:36)
[2020-06-20 21:16] LABS: Lactic Acid 1.9 mmol/L (0.5-2.2)
--- NOTE | 2020-06-20 21:53 | CON ---
DATE OF CONSULTATION: 06/20/2020 REQUESTING PHYSICIAN: Dr. Lee. REASON FOR CONSULTATION: Nausea, vomiting, and abdominal pain. HISTORY OF PRESENT ILLNESS: Leatha Roberts is a 65-year-old woman, followed in the outpatient setting by my GI colleague, Dr. Yvan Yeung. She has a history significant for coronary artery disease, remote history of pancreatitis, and also lung cancer status post left upper lobectomy, chemotherapy and radiation, which is considered to be in remission to my understanding. Ms. Roberts has some chronic gastrointestinal symptoms of occasional nausea and vomiting, alternating diarrhea and constipation, which has been going on for several years. She was seen by Dr. Park, inpatient consultation for nausea, vomiting, and hematemesis back in March 2018. EGD at that time demonstrated LA grade D distal esophagitis with some white plaques in the esophagus as well as erosive gastritis and duodenitis. Notably, biopsies were negative for fungal organisms, HSV, or CMV at that time as well as negative for H pylori, but she was treated with a couple of months of pantoprazole and followup EGD in May 2018 was actually normal exam. Her last colonoscopy was in 2005. Notably, the patient does smoke 2 packs of cigarettes per day, will have at least 3 beers per day and also at least until month ago, was using marijuana with some frequency. She says that she got to the point where the marijuana would make her instantly nauseated and so she basically had quit about a month ago. Two days ago, she was admitted to the hospital with about 3 days of nausea, vomiting, and migratory abdominal pain. This primarily in the right upper quadrant, but also goes to the periumbilical area and left upper quadrant. She was basically unable to hold anything down over that time frame. Upon presentation, she was significantly dehydrated, had a lactic acidosis with lactic acid 7.2. LFTs and lipase were normal. She has a macrocytic anemia and low folic acid level. She is being treated supportively with IV fluids and antiemetics. Vomiting has calmed down, but the nausea persist and hepatitis still not great and she has still been having this abdominal pain. She had multiple studies including a CT of the abdomen and pelvis and ultrasound which showed only some distention of the gallbladder, but no other abnormalities and HIDA scan was subsequently normal. Notably, she tells me she does not take any chronic acid suppression for the past few weeks. She had tried ranitidine, which did not seem to be making much difference. REVIEW OF SYSTEMS: Full review of systems including constitutional, head, eyes, ears, nose, throat, GI, , cardiovascular, respiratory, musculoskeletal, neurologic systems is negative except as noted in the HPI. PAST MEDICAL HISTORY: Coronary artery disease with stent, lung cancer status post left upper lobectomy, chemotherapy and radiation, considered to be in remission, hysterectomy, hypertension, hyperlipidemia, asthma, pancreatitis, erosive esophagitis in March 2018, erosive gastritis and duodenitis in March 2018, tobacco abuse, alcohol abuse, marijuana abuse. ALLERGIES: CODEINE, NIACIN, PENICILLIN, PROMETHAZINE. OUTPATIENT MEDICATIONS: 1. Topiramate. 2. Aspirin 81 mg daily. 3. Metoprolol. 4. Paxil. FAMILY HISTORY: Negative for colon cancer. SOCIAL HISTORY: She will have the equivalent of about 3 beers per day. She smokes 2 packs of cigarettes per day. She says she has quit marijuana, but that was just a month ago. PHYSICAL EXAMINATION: VITAL SIGNS: Temperature 98.8, pulse 75, blood pressure 120/57, 98% oxygen saturation on room air. GENERAL: A 65-year-old woman, lying in bed comfortably, in no distress. Nontoxic appearing. SKIN: No jaundice. No rashes were palpable. EYES: No scleral icterus. Extraocular movements intact. ENT: Mucous membranes moist. No oral lesions. LYMPH: No submandibular or supraclavicular lymphadenopathy. THYROID: Nontender to palpation. HEART: Regular rate and rhythm. LUNGS: Clear to auscultation bilaterally. ABDOMEN: Nondistended. Bowel sounds present. Soft. Tender to palpation in the upper abdomen and periumbilical area, but no guarding or rebound tenderness. EXTREMITIES: No peripheral edema. VESSELS: Radial pulses 2+ bilaterally. NEUROLOGIC: Cranial nerves 2 through 12 intact bilaterally. No focal deficits. LABORATORY STUDIES: WBC 5.2, hemoglobin 10.7, platelets 152, MCV elevated to 111. Vitamin B12 is normal at 456. Folic acid is low at 2.3. Lactic acid was initially 7.2, now down to 2.4. Sodium 136, potassium 4.1, BUN 8, creatinine 0.75, glucose 120. TSH normal at 1.0. LFTs essentially unremarkable with total bilirubin 0.5, alkaline phosphatase 119, AST 16, ALT 12, albumin 2.5. Lipase normal at 42. Urinalysis negative. COVID PCR negative. Blood and urine culture showing no growth to date. IMAGING STUDIES: Echocardiogram shows ejection fraction 50% to 55% with some diastolic dysfunction. CT of the abdomen and pelvis demonstrates moderate gallbladder distention, but otherwise normal exam including normal liver, pancreas, spleen, bowel, and appendix. Chest x-ray showed postoperative changes of left lobectomy, but no acute processes. Abdominal ultrasound showed some distention of the gallbladder, but no gallstones. Normal common bile duct of 3 mm. HIDA scan was normal. ASSESSMENT/PLAN: 1. Nausea and vomiting, persistent, seems somewhat cyclical in nature. 2. Generalized migratory abdominal pain. 3. Marijuana abuse. 4. Alcohol abuse. The patient does have a history of severe erosive esophagitis and gastritis back in 2018, which had resolved with PPI therapy at that time. Certainly, current symptoms could be related to recurrent upper GI mucosal pathology. She is not on any significant chronic acid suppression, so she is at risk for this. Other possibilities would include an acute gastroenteritis, so followup stool studies which have just been collected, versus possibility of cannabinoid hyperemesis syndrome. I discussed all these possibilities with the patient. We will await results of stool studies. We will also schedule her for diagnostic esophagogastroduodenoscopy tomorrow. Depending on findings, she may need to go back on acid suppression. I have already advised her that she needs to completely be finished with the marijuana, and should also stop with the tobacco and alcohol. 5. Macrocytic anemia. 6. Folic acid deficiency. Folic acid levels are low. This is likely secondary to alcohol abuse. Would give folic acid supplementation of 1000 mcg daily. Thank you for the consultation. Please call anytime with questions or concerns. Job ID: [id number]
[2020-06-20] MEDS: Cefepime 2 GM in Sodium Chloride 0.9% 100 ML IVPB SCH (22:11)
[2020-06-21] MEDS: Sodium Chloride 0.9% 1,000 ML IV SCH ×2 (04:37→12:41)
[2020-06-21] MEDS ORDERED: Ketamine 50 MG/ML (10ML VIAL) ONE (08:28)
[2020-06-21] MEDS ORDERED: Ondansetron HCl/PF 4 MG/2 ML Vial IVP PRN (09:10)
[2020-06-21] MEDS ORDERED: PROPOFOL 200 MG/20 ML VIAL ONE (09:25)
[2020-06-21] MEDS: Ondansetron PF 4 MG/2 ML Vial IVP PRN ×3 (09:37→19:57)
[2020-06-21] MEDS: Morphine 2 MG/ML VIAL SLOW IVP PRN ×3 (09:37→19:57)
[2020-06-21] MEDS: Aspirin 81 mg Enteric Coated Tablet PO SCH (09:38)
[2020-06-21] MEDS: PARoxetine 20 MG TAB PO SCH (09:38)
[2020-06-21] MEDS: Atorvastatin Calcium 10 MG TAB PO SCH (09:38)
[2020-06-21] MEDS: Lidocaine 5% Patch TD SCH ×2 (09:39→18:10)
[2020-06-21] MEDS: Cefepime 2 GM in Sodium Chloride 0.9% 100 ML IVPB SCH (09:39)
[2020-06-21 10:06] LABS: Hemoglobin 11.2 g/dL (12.0-16.0); Mean Corpuscular HGB CONC 32.5 g/dL (32.0-36.0); Mean Corpuscular Hemoglobin 36.7 pg (27.0-31.0); Mean Platelet Volume 7.6 fL (7.4-10.4); Platelet Count 152 thou/uL (130-400); RBC Distribution Width 14.7 % (11.5-14.5); Red Blood Cell (RBC) Count 3.04 mill/uL (4.20-5.40); White Blood Cell (WBC) Count 5.7 thou/uL (4.8-10.8)
[2020-06-21 10:18] LABS: ALT (SGPT) 9 U/L (8-55); AST (SGOT) 14 U/L (5-34); Albumin 2.5 g/dL (3.4-4.8); Alkaline Phosphatase 114 U/L (40-110); Anion Gap 11 mmol/L (10-20); BUN (Urea Nitrogen) 6 mg/dL (9.8-20.1); Bilirubin, Total 0.5 mg/dL (0.2-1.2); Calc. Creatinine Clearance 87 mL/min (70-130); Calcium 7.3 mg/dL (7.8-10.44); Carbon Dioxide 23 mmol/L (23-31); Chloride 108 mmol/L (98-107); Estimated GFR-MDRD 82; Globulin 2.3 g/dL (2.4-3.5); Glucose 94 mg/dL (80-115); Potassium 3.9 mmol/L (3.5-5.1); Protein, Total 4.8 g/dL (6.0-8.3); Sodium 138 mmol/L (136-145)
[2020-06-21] MEDS ORDERED: Folic Acid 1 MG TAB PO SCH (10:45)
[2020-06-21] MEDS ORDERED: Azithromycin 250 MG TAB PO SCH (11:00)
--- NOTE | 2020-06-21 12:48 | PQF ---
CLINICAL DOCUMENTATION CLARIFICATION FORM: Dear Dr. Lee Date: 06/21/20 Please exercise your independent, professional judgment in responding to the clarification form. Clinical indicators are provided on the bottom of this form for your review. Please check appropriate box(es) to clarify if the following diagnosis has been ruled in our ruled out: SEPSIS [ ] Ruled in diagnosis [ ] Continue to treat [ ] Resolved [ X ] Ruled out diagnosis [ ] Improving [ ] Cannot rule out diagnosis [ ] Other diagnosis [ ] Unable to determine In addition, please specify: Present on Admission (POA): [ ] Yes [X ] No [ ] Unable to determine For continuity of documentation, please document condition throughout progress notes and discharge summary. Thank You. CLINICAL INDICATORS - SIGNS / SYMPTOMS / LABS / RESULTS AND LOCATION IN MR H&P (GURUSAMY): "SEPSIS, POA" LACTIC ACID 06/18: 7.2 PULSE 118 , RR 22, BP 87/64 (ER) RISKS: CHILLS AND FATIGUE (ER NOTE) DEHYDRATION (H&P- GURUSAMY) H/O CHRONIC PANCREATITIS (H&P- GURUSAMY) DISTENDED GALLBLADDER PER CT (ER NOTE) TREATMENT: IV VANCOMYCIN (ER) IV CEFEPIME (ER-06/21) ZITHROMAX (START 06/21 IV FLUIDS (ER-PRESENT) BLOOD CULTURES (06/18) URINE CULTURES (06/18) STOOL CULTURES (06/20) CDS Signature: Dali Gloria RN Phone #: [phone] Date: 06/21/20 This is a permanent part of the Medical Record [facility]
--- NOTE | 2020-06-21 15:01 | OP ---
DATE OF PROCEDURE: 06/21/2020 ASSISSTANT SURGEON: None. PROCEDURE PERFORMED: Esophagogastroduodenoscopy, diagnostic. INDICATIONS: 1. Nausea and vomiting. 2. Generalized abdominal pain. 3. Prior history of erosive gastritis and esophagitis. MEDICATIONS: See Anesthesia record. FINDINGS: After discussion of the risks, benefits, and alternatives of the procedure, informed consent was obtained and witnessed. Pre-endoscopic cardiopulmonary examination was satisfactory. Time-out was performed before sedation was achieved. Sedation was achieved with Anesthesia assistance in the endoscopy unit. A Pentax adult upper endoscope was placed into the oropharynx and passed through the cricopharyngeus under direct visualization. The esophageal mucosa appeared normal throughout with a normal-appearing Z-line. The endoscope was advanced into the stomach. Forward and retroflexed views of the entire gastric mucosa were obtained. The gastric mucosa appeared normal throughout. There was a small sliding hiatal hernia, but no evidence of any Daniel erosions or ulcerations. The endoscope was advanced through a normal-appearing pylorus and into the first and second portions of the duodenum, which also appeared normal. The upper endoscope was completely withdrawn and the patient allowed to recover. The patient tolerated the procedure well. There were no immediate postprocedure complications. IMPRESSION: 1. Small hiatal hernia. 2. Otherwise normal esophagogastroduodenoscopy. RECOMMENDATIONS: 1. Advance diet as tolerated. 2. Note, the stool came back positive for Campylobacter antigen. This may indeed be driving her more acute symptoms and presentation. Recommend starting azithromycin 500 mg once daily for a 3-day course for Campylobacter enteritis. 3. The patient really does need to stop all smoking, alcohol, and marijuana use. Job ID: [id number]
--- NOTE | 2020-06-21 15:33 | PDOC.HOSPP ---
- Subjective Encounter Date: 06/21/20 Encounter Time: 09:30 Subjective: The patient had an EGD today which is normal. She tested positive for Campylobacter. Patient states she ate some broccoli and some potatoes but started getting abdominal cramps after that. She has not had any diarrhea. She does have some nausea - Objective Vital Signs & Weight: Vital Signs (12 hours) Temp Pulse Resp BP Pulse Ox 06/21/20 11:36 97.9 F 80 15 133/77 95 06/21/20 07:59 97.8 F 92 15 124/75 97 06/21/20 04:00 96.4 F L 106 H 22 H 137/77 98 Weight Admit Weight 157 lb 6.4 oz Weight 157 lb 6.4 oz I&O: 06/20/20 06/21/20 06/22/20 06:59 06:59 06:59 Intake Total 800 3020 120 Balance 800 3020 120 Result Diagrams: 06/21/20 09:47 06/21/20 09:47 Hospitalist ROS - Review of Systems Constitutional: denies: fever, chills - Medication Medications: Active Medications Generic Name Dose Route Start Last Admin Trade Name Freq PRN Reason Stop Dose Admin Aspirin 81 mg 06/19/20 09:00 06/21/20 09:38 Aspirin 81 Mg Enteric Coated Tablet PO 81 mg DAILY REINA Administration Atorvastatin Calcium 10 mg 06/19/20 09:00 06/21/20 09:38 Atorvastatin Calcium 10 Mg Tab PO 10 mg DAILY REINA Administration Sodium Chloride 1,000 mls @ 100 mls/hr 06/20/20 15:25 06/21/20 12:41 Normal Saline 0.9% IV 1,000 mls .Q10H REINA Administration Lidocaine 1 patch 06/21/20 09:00 06/21/20 09:39 Lidocaine 5% Patch TD 1 patch DAILY REINA Administration Miscellaneous Medication 1 each 06/20/20 21:00 06/20/20 21:01 Lidocaine Patch Removal TOP Not Given 2100 REINA Morphine Sulfate 2 mg 06/19/20 13:00 06/21/20 09:37 Morphine 2 Mg/Ml Vial SLOW IVP 2 mg Q4H PRN Administration Pain Ondansetron HCl 4 mg 06/18/20 13:48 06/20/20 20:36 Ondansetron Odt 4 Mg Tab PO 4 mg Q6H PRN Administration Nausea/Vomiting Ondansetron HCl 4 mg 06/18/20 16:59 06/21/20 09:37 Ondansetron Pf 4 Mg/2 Ml Vial IVP 4 mg Q4H PRN Administration Nausea/Vomiting Pantoprazole Sodium 40 mg 06/18/20 21:00 06/21/20 09:38 Pantoprazole 40 Mg Tab PO 40 mg BID REINA Administration Paroxetine HCl 10 mg 06/19/20 09:00 06/21/20 09:38 Paroxetine 20 Mg Tab PO 10 mg DAILY REINA Administration - Exam General Appearance: NAD, awake alert Eye: PERRL, anicteric sclera ENT: normocephalic atraumatic, no oropharyngeal lesions Neck: no JVD Heart: RRR, no murmur, no gallops, no rubs, normal peripheral pulses Respiratory: CTAB, no wheezes, no rales, no ronchi Gastrointestinal - other findings: diffuse mild tenderness Extremities: no cyanosis, no clubbing, no edema Skin: normal turgor, no lesions, no rashes Hosp A/P - Plan CT abdomen: distended GB Abd US: distended GB ECHO: EF 50-55% diastolic dysfunction, mild MR, mild TR Chest X ray: negative This is 65 year old female who presented with abdominal pain, nausea/vomiting #Abdominal pain - possibly secondary to Campylobacter infection - Abd US and CT abdomen showed distended gallbladder. Lipase was normal . Lactic acid 7.2 on admisson, but no blood in stools. HIDA scan normal. - GI consulted, had an EGD which was normal. - continue protonix - celiac panel is pending - stool culture tested positive for Campylobacter infection, starting azithromycin 500 mg daily x 3 days - she failed regular diet, advised patient to try full iquid today Folate deficiency anemia -started folic acid supplementation #Diarrhea- resolved - stool cultures ordered, but not done since no BM today yet #Hypotension- resolved #Lactic acidosis - resolved - received IV fluids yesterday, will dc History of Erosive esophagitis - resolved, not on current EGD Alcoholism - drinks three beers daily. Monitor for any withdrawal
[2020-06-21] MEDS: Lidocaine Patch Removal TOP SCH (20:12)
[2020-06-22] MEDS ORDERED: Azithromycin 250 MG TAB PO SCH (09:00)
[2020-06-22] MEDS: Azithromycin 250 MG TAB PO SCH (09:17)
[2020-06-22] MEDS: Atorvastatin Calcium 10 MG TAB PO SCH (09:17)
[2020-06-22] MEDS: PARoxetine 20 MG TAB PO SCH (09:18)
[2020-06-22] MEDS: Folic Acid 1 MG TAB PO SCH (09:18)
[2020-06-22] MEDS: Aspirin 81 mg Enteric Coated Tablet PO SCH (09:18)
[2020-06-22] MEDS: Lidocaine 5% Patch TD SCH (09:18)
[2020-06-22] MEDS: Morphine 2 MG/ML VIAL SLOW IVP PRN ×3 (10:56→22:05)
[2020-06-22] MEDS: Ondansetron PF 4 MG/2 ML Vial IVP PRN ×3 (11:00→22:05)
--- NOTE | 2020-06-22 19:02 | PDOC.HOSPP ---
- Subjective Encounter Date: 06/22/20 Encounter Time: 09:00 Subjective: The patient still has crampy abdominal pain with food intake. She threw up all of her lunch this morning. No diarrhea Reports that she had adenomyosis and endometriosis in the past. No new sexual partners because ever since she had an ovarian biopsy, she has had pain with having sex, so has not had sexual intercourse in three years. She had hysterectomy. Per radiology, patient only has one ovary - Objective Vital Signs & Weight: Vital Signs (12 hours) Temp Pulse Resp BP Pulse Ox 06/22/20 16:00 98.6 F 82 18 129/72 97 06/22/20 11:36 97.9 F 84 20 123/59 L 96 06/22/20 07:28 97.9 F 85 14 128/74 94 L Weight Admit Weight 157 lb 6.4 oz Weight 157 lb 6.4 oz I&O: 06/21/20 06/22/20 06/23/20 06:59 06:59 06:59 Intake Total 3020 597 480 Output Total 300 Balance 3020 597 180 Result Diagrams: 06/21/20 09:47 06/21/20 09:47 Hospitalist ROS - Review of Systems Constitutional: denies: fever, chills - Medication Medications: Active Medications Generic Name Dose Route Start Last Admin Trade Name Geovanna PRN Reason Stop Dose Admin Aspirin 81 mg 06/19/20 09:00 06/22/20 09:18 Aspirin 81 Mg Enteric Coated Tablet PO 81 mg DAILY REINA Administration Atorvastatin Calcium 10 mg 06/19/20 09:00 06/22/20 09:17 Atorvastatin Calcium 10 Mg Tab PO 10 mg DAILY REINA Administration Azithromycin 500 mg 06/22/20 09:00 06/22/20 09:17 Azithromycin 250 Mg Tab PO 06/23/20 09:01 500 mg DAILY REINA Administration Folic Acid 1 mg 06/22/20 09:00 06/22/20 09:18 Folic Acid 1 Mg Tab PO 1 mg DAILY REINA Administration Lidocaine 1 patch 06/21/20 09:00 06/22/20 09:18 Lidocaine 5% Patch TD Not Given DAILY REINA Miscellaneous Medication 1 each 06/20/20 21:00 06/21/20 20:12 Lidocaine Patch Removal TOP Not Given 2100 REINA Morphine Sulfate 2 mg 06/19/20 13:00 06/22/20 18:05 Morphine 2 Mg/Ml Vial SLOW IVP 2 mg Q4H PRN Administration Pain Ondansetron HCl 4 mg 06/18/20 13:48 06/20/20 20:36 Ondansetron Odt 4 Mg Tab PO 4 mg Q6H PRN Administration Nausea/Vomiting Ondansetron HCl 4 mg 06/18/20 16:59 06/22/20 18:06 Ondansetron Pf 4 Mg/2 Ml Vial IVP 4 mg Q4H PRN Administration Nausea/Vomiting Pantoprazole Sodium 40 mg 06/18/20 21:00 06/22/20 09:18 Pantoprazole 40 Mg Tab PO 40 mg BID REINA Administration Paroxetine HCl 10 mg 06/19/20 09:00 06/22/20 09:18 Paroxetine 20 Mg Tab PO 10 mg DAILY REINA Administration - Exam General Appearance: NAD, awake alert Eye: PERRL, anicteric sclera ENT: normocephalic atraumatic, no oropharyngeal lesions Neck: no JVD Heart: RRR, no murmur, no gallops, no rubs Respiratory: CTAB, no wheezes, no rales, no ronchi Gastrointestinal: soft, non-tender, non-distended, normal bowel sounds Extremities: no cyanosis, no clubbing, no edema Skin: normal turgor, no lesions, no rashes Neurological: cranial nerve grossly intact, normal sensation to touch, no focal deficits, no new deficit Hosp A/P - Plan CT abdomen: distended GB Abd US: distended GB ECHO: EF 50-55% diastolic dysfunction, mild MR, mild TR Chest X ray: negative This is 65 year old female who presented with abdominal pain, nausea/vomiting #Abdominal pain - possibly secondary to Campylobacter infection vs hyperemesis syndrome - Abd US and CT abdomen showed distended gallbladder. Lipase was normal . Lactic acid 7.2 on admisson, but no blood in stools. HIDA scan normal. No ovarian pathology on CT abdomen and pt has had hysterectomy - GI consulted, had an EGD which was normal. - continue protonix - celiac panel is pending - stool culture tested positive for Campylobacter infection, starting azithromycin 500 mg daily x 3 days. Currently day 2 - will place back on some IV fluids given recurrent vomiting Folate deficiency anemia -folic acid level 2. Continue folic acid supplementation #Diarrhea- resolved - stool cultures ordered, but not done since no BM today yet #Hypotension- resolved #Lactic acidosis - resolved History of Erosive esophagitis - resolved, not on current EGD Alcoholism - drinks three beers daily. Monitor for any withdrawal
[2020-06-22] MEDS: Lidocaine Patch Removal TOP SCH (20:11)
[2020-06-22] MEDS: Dextrose 5 %-0.45 % NaCl 1,000 ML IV SCH (20:43)
--- NOTE | 2020-06-22 20:51 | PRG ---
DATE OF SERVICE: 06/22/2020 SUBJECTIVE: Ms. Roberts vomited her lunch today. She did not eat much for dinner, but kept down some corn. Her abdominal pain is stable and intermittent. She has had no stool output today. OBJECTIVE: VITAL SIGNS: Temperature is 97.6, pulse 103, blood pressure 130/63. GENERAL: She is a no acute distress. Alert and oriented x3. LUNGS: Clear to auscultation bilaterally. HEART: Regular rate and rhythm. ABDOMEN: Soft. She has mild tenderness on upper abdomen without guarding. Bowel sounds are present. EXTREMITIES: No lower extremity edema. LABORATORY DATA: White blood cell count 5.4, hemoglobin 11.2, platelets 152. Bilirubin 0.5, AST 14, ALT 9, alkaline phosphatase 114, albumin 2.5. IMPRESSION: 1. Campylobacter positive antigen with intermittent diarrhea. She has been started on azithromycin and we will see how she responds to that. 2. Nausea and vomiting and abdominal pain with intermittent diarrhea and constipation. It sounds like more chronic symptoms. She had upper endoscopy yesterday, which was negative. CT of the abdomen and pelvis and ultrasound were unremarkable. HIDA scan was normal. 3. Alcohol abuse and marijuana abuse. Cannabis hyperemesis could also be considered as a reason for chronic nausea and vomiting. At this point, I would recommend discontinuation as this will really be the only way to know if this is contributing to her chronic vomiting. 4. Macrocytic anemia with folic acid deficiency. She has been started on folic acid supplementation and this is likely secondary to her alcohol history. RECOMMENDATIONS: 1. We will complete a 3-day course of azithromycin to see how her symptoms respond to this, but I am not convinced this is the primary issue going on with her and it could be a lab error. Either way, she did have diarrhea and abdominal pain and needs to be treated. 2. Recommend alcohol and marijuana cessation. 3. Folic acid supplementation. 4. Symptomatic treatment with antiemetics. 5. We will change her over from a regular diet to a low fiber diet in light of the chronic nausea and vomiting. Job ID: [id number]
[2020-06-23] MEDS: Morphine 2 MG/ML VIAL SLOW IVP PRN ×4 (05:25→19:18)
[2020-06-23] MEDS: Ondansetron PF 4 MG/2 ML Vial IVP PRN (08:05)
[2020-06-23] MEDS: Folic Acid 1 MG TAB PO SCH (08:09)
[2020-06-23] MEDS: Aspirin 81 mg Enteric Coated Tablet PO SCH (08:09)
[2020-06-23] MEDS: PARoxetine 20 MG TAB PO SCH (08:09)
[2020-06-23] MEDS: Atorvastatin Calcium 10 MG TAB PO SCH (08:09)
[2020-06-23] MEDS: Azithromycin 250 MG TAB PO SCH (08:09)
[2020-06-23] MEDS: Lidocaine 5% Patch TD SCH (08:10)
[2020-06-23] MEDS: Dextrose 5 %-0.45 % NaCl 1,000 ML IV SCH (10:27)
[2020-06-23] MEDS ORDERED: Ondansetron ORAL SOLN. 4 MG/5 ML UDCUP PO SCH (14:00)
[2020-06-23] MEDS: Ondansetron ODT 4 MG TAB PO SCH ×2 (14:42→21:34)
--- NOTE | 2020-06-23 15:32 | PRG ---
DATE OF SERVICE: 06/23/2020 SUBJECTIVE: The patient states that yesterday she had significant abdominal pain as well as nausea and vomiting throughout the course of the day. However, today she states that her nausea has significantly improved with no episodes of emesis today. She also adds that her abdominal pain is improving, where it is now intermittent rather than constant. She has not had any bowel movements within the last 24 hours. Currently, she denies any vomiting, fevers, chills, hematemesis, melena, or hematochezia. OBJECTIVE: VITAL SIGNS: Temperature 97.8, pulse 77, blood pressure 108/60, respiratory rate 16, saturating 97% on room air. GENERAL: The patient was lying in bed, in no acute distress. Alert and oriented x4. RESPIRATORY: Clear to auscultation bilaterally. CARDIOVASCULAR: Regular rate and rhythm. ABDOMEN: Normoactive bowel sounds. Soft, nondistended, mild tenderness to palpation in the midepigastric region. EXTREMITIES: No cyanosis, clubbing, or edema. LABORATORY DATA: No current studies are available for review. IMAGING DATA: No current studies are available for review. IMPRESSION: 1. Campylobacter infection with resultant diarrhea. Since starting the patient on azithromycin, she has had complete resolution of her diarrhea and improvement in her abdominal pain with the origin likely to bacterial infection. I would continue antibiotic therapy with the azithromycin for a total duration of therapy of 3 days. 2. Nausea and vomiting. The patient underwent esophagogastroduodenoscopy during this admission, which was negative for overt abnormalities along with imaging including a CT abdomen and pelvis and HIDA scan that were normal. At this point, her nausea and vomiting seems to be under decent control with current antiemetic therapy. I would continue this for now. Cannabinoid hyperemesis syndrome could also be considered for reason for her chronic nausea and vomiting with complete cessation for this strongly advised. The patient could potentially have symptoms up to 6 months after discontinuation. 3. Macrocytic anemia with folic acid deficiency. The patient is presenting with macrocytosis on her red blood cells along with a folic acid deficiency, likely contributing to this as well as her significant alcohol history contributing to this as well due to dietary deficiencies. We will continue folic acid supplementation. RECOMMENDATIONS: 1. Continue azithromycin for a total duration of therapy of 3 days. 2. Recommend alcohol and marijuana cessation. Continue with folic acid supplementation. 3. Continue aggressive antiemetic therapy. 4. Advance diet as tolerated. Given the improvement in the patient's abdominal pain, nausea, vomiting, and diarrhea, we will sign off at this time. Please call with any additional questions. Job ID: [id number]
--- NOTE | 2020-06-23 18:18 | PDOC.HOSPP ---
- Subjective Encounter Date: 06/23/20 Encounter Time: 07:00 Subjective: The patient still has some abd pain. She has been dry heaving still . She was only able to tolerate half an omelette. Advised her to stay NPO until her pain resolves and then do clear liquids The patient statse she is having some nasal drainage. She also has a dry cough. She does have history of lung cancer, last CT scan in May was unremarkable. The patient also states she is off balance when ambulating and is wondering if she has ear pathology. She denies ear pain - Objective Vital Signs & Weight: Vital Signs (12 hours) Temp Pulse Resp BP Pulse Ox 06/23/20 11:25 97.8 F 77 16 108/60 97 06/23/20 07:51 94 L 06/23/20 07:09 98.1 F 80 16 109/63 94 L Weight Admit Weight 157 lb 6.4 oz Weight 157 lb 6.4 oz I&O: 06/22/20 06/23/20 06/24/20 06:59 06:59 06:59 Intake Total 597 480 Output Total 300 Balance 597 180 Result Diagrams: 06/21/20 09:47 06/21/20 09:47 Hospitalist ROS - Review of Systems Constitutional: denies: fever, chills - Medication Medications: Active Medications Generic Name Dose Route Start Last Admin Trade Name Geovanna PRN Reason Stop Dose Admin Aspirin 81 mg 06/19/20 09:00 06/23/20 08:09 Aspirin 81 Mg Enteric Coated Tablet PO 81 mg DAILY REINA Administration Atorvastatin Calcium 10 mg 06/19/20 09:00 06/23/20 08:09 Atorvastatin Calcium 10 Mg Tab PO 10 mg DAILY REINA Administration Folic Acid 1 mg 06/22/20 09:00 06/23/20 08:09 Folic Acid 1 Mg Tab PO 1 mg DAILY REINA Administration Dextrose/Sodium Chloride 1,000 mls @ 75 mls/hr 06/22/20 19:15 06/23/20 10:27 D5 1/2 Ns IV 1,000 mls .[id number] REINA Administration Lidocaine 1 patch 06/21/20 09:00 06/23/20 08:10 Lidocaine 5% Patch TD Not Given DAILY REINA Miscellaneous Medication 1 each 06/20/20 21:00 06/22/20 20:11 Lidocaine Patch Removal TOP Not Given 2100 REINA Morphine Sulfate 2 mg 06/19/20 13:00 06/23/20 14:41 Morphine 2 Mg/Ml Vial SLOW IVP 2 mg Q4H PRN Administration Pain Ondansetron HCl 4 mg 06/18/20 16:59 06/23/20 08:05 Ondansetron Pf 4 Mg/2 Ml Vial IVP 4 mg Q4H PRN Administration Nausea/Vomiting Ondansetron HCl 4 mg 06/23/20 14:00 06/23/20 14:42 Ondansetron Odt 4 Mg Tab PO 4 mg Q6H REINA Administration Pantoprazole Sodium 40 mg 06/18/20 21:00 06/23/20 08:09 Pantoprazole 40 Mg Tab PO 40 mg BID REINA Administration Paroxetine HCl 10 mg 06/19/20 09:00 06/23/20 08:09 Paroxetine 20 Mg Tab PO 10 mg DAILY REINA Administration - Exam General Appearance: NAD, awake alert Eye: PERRL, anicteric sclera ENT: normocephalic atraumatic, no oropharyngeal lesions ENT - other findings: significant wax in the left ear Neck: supple, symmetric, no JVD, no thyromegaly Heart: RRR, no murmur, no gallops, no rubs Respiratory: CTAB, no wheezes, no rales, no ronchi Gastrointestinal: soft Gastrointestinal - other findings: diffuse mild tenderness Extremities: no cyanosis, no clubbing, no edema Skin: normal turgor, no lesions, no rashes Neurological: cranial nerve grossly intact, normal sensation to touch, no focal deficits, no new deficit Hosp A/P - Plan CT abdomen: distended GB Abd US: distended GB ECHO: EF 50-55% diastolic dysfunction, mild MR, mild TR Chest X ray: negative This is 65 year old female who presented with abdominal pain, nausea/vomiting #Abdominal pain - possibly secondary to Campylobacter infection vs hyperemesis syndrome - Abd US and CT abdomen showed distended gallbladder. Lipase was normal . Lactic acid 7.2 on admisson, but no blood in stools. HIDA scan normal. No ovar esteban pathology on CT abdomen and pt has had hysterectomy - GI consulted, had an EGD which was normal. - continue protonix - celiac panel is pending - stool culture tested positive for Campylobacter infection, completed azithromycin for three days - continue IV fluisd at lo - will place back on some IV fluids given recurrent vomiting Cerumen in left ear - will order debrox due to significant build up Folate deficiency anemia -folic acid level 2. Continue folic acid supplementation #Diarrhea- resolved - stool cultures ordered, but not done since no BM today yet #Hypotension- resolved #Lactic acidosis - resolved History of Erosive esophagitis - resolved, not on current EGD Alcoholism - drinks three beers daily. Monitor for any withdrawal
[2020-06-23 19:25] LABS: EliA Celiac New Method **** NEW METHOD ****; Gliadin IgA Ab, Deamidated 1.4 EliAU/mL (<7 Negative); Gliadin IgG Ab, Deamidated Less than 0.4 EliAU/mL (<7 Negative); t-Transglutaminase (tTG) IgA 0.8 EliAU/mL (<7 Negative); t-Transglutaminase (tTG) IgG Less than 0.6 EliAU/mL (<7 Negative)
[2020-06-23] MEDS: Lidocaine Patch Removal TOP SCH (22:32)
[2020-06-24] MEDS: Ondansetron ODT 4 MG TAB PO SCH ×4 (03:15→20:21)
[2020-06-24] MEDS: Dicyclomine 20 MG TAB PO PRN (06:00)
[2020-06-24] MEDS: PARoxetine 20 MG TAB PO SCH (08:15)
[2020-06-24] MEDS: Aspirin 81 mg Enteric Coated Tablet PO SCH (08:15)
[2020-06-24] MEDS: Folic Acid 1 MG TAB PO SCH (08:15)
[2020-06-24] MEDS: Atorvastatin Calcium 10 MG TAB PO SCH (08:17)
[2020-06-24] MEDS: Carbamide Peroxide 6.5% Otic Drops 15 ml Bottle L EAR SCH ×2 (08:18→20:21)
[2020-06-24] MEDS: Morphine 2 MG/ML VIAL SLOW IVP PRN (08:19)
[2020-06-24] MEDS: Ondansetron PF 4 MG/2 ML Vial IVP PRN ×4 (08:35→21:54)
[2020-06-24 09:31] LABS: ALT (SGPT) 8 U/L (8-55); AST (SGOT) 15 U/L (5-34); Albumin 2.4 g/dL (3.4-4.8); Alkaline Phosphatase 110 U/L (40-110); Anion Gap 14 mmol/L (10-20); BUN (Urea Nitrogen) Less than 4 mg/dL (9.8-20.1); Bilirubin, Total 0.3 mg/dL (0.2-1.2); Calc. Creatinine Clearance 87 mL/min (70-130); Calcium 7.6 mg/dL (7.8-10.44); Carbon Dioxide 23 mmol/L (23-31); Chloride 105 mmol/L (98-107); Estimated GFR-MDRD 82; Globulin 2.5 g/dL (2.4-3.5); Glucose 120 mg/dL (80-115); Potassium 3.1 mmol/L (3.5-5.1); Protein, Total 4.9 g/dL (6.0-8.3); Sodium 139 mmol/L (136-145)
[2020-06-24 09:38] LABS: Hemoglobin 10.9 g/dL (12.0-16.0); Mean Corpuscular Hemoglobin 36.6 pg (27.0-31.0); Mean Platelet Volume 7.6 fL (7.4-10.4); Platelet Count 155 thou/uL (130-400); RBC Distribution Width 15.4 % (11.5-14.5); Red Blood Cell (RBC) Count 2.98 mill/uL (4.20-5.40); White Blood Cell (WBC) Count 5.1 thou/uL (4.8-10.8)
[2020-06-24] MEDS ORDERED: Potassium Chloride 20 MEQ TAB PO SCH (09:45)
[2020-06-24] MEDS: Lidocaine 5% Patch TD SCH (16:15)
--- NOTE | 2020-06-24 17:41 | PDOC.HOSPP ---
- Subjective Encounter Date: 06/24/20 Encounter Time: 11:00 Subjective: The patient states she did not tolerate her eggs this morning and got cramps and dry heaving. I advised her to do clear liquids today. She had this for lunch and tolerated this well with no pain, nausea/vomiting She wants to stick with clear liquids for dinner - Objective Vital Signs & Weight: Vital Signs (12 hours) Temp Pulse Resp BP Pulse Ox 06/24/20 08:00 98 06/24/20 07:28 97.9 F 76 18 110/67 98 Weight Admit Weight 157 lb 6.4 oz Weight 157 lb 6.4 oz I&O: 06/23/20 06/24/20 06/25/20 06:59 06:59 06:59 Intake Total 480 1100 Output Total 300 Balance 180 1100 Result Diagrams: 06/24/20 08:42 06/24/20 08:42 Hospitalist ROS - Review of Systems Constitutional: denies: fever, chills - Medication Medications: Active Medications Generic Name Dose Route Start Last Admin Trade Name Geovanna PRN Reason Stop Dose Admin Aspirin 81 mg 06/19/20 09:00 06/24/20 08:15 Aspirin 81 Mg Enteric Coated Tablet PO 81 mg DAILY REINA Administration Atorvastatin Calcium 10 mg 06/19/20 09:00 06/24/20 08:17 Atorvastatin Calcium 10 Mg Tab PO 10 mg DAILY REINA Administration Carbamide Perox/Anhydrous Glycerin 5 drop 06/24/20 09:00 06/24/20 08:18 Carbamide Peroxide 6.5% Otic Drops 15 Ml Bottle L EAR 5 drp BID REINA Administration Dicyclomine HCl 20 mg 06/23/20 22:35 06/24/20 06:00 Dicyclomine 20 Mg Tab PO 20 mg QID PRN Administration ABDOMINAL CRAMPS Folic Acid 1 mg 06/22/20 09:00 06/24/20 08:15 Folic Acid 1 Mg Tab PO 1 mg DAILY REINA Administration Lidocaine 1 patch 06/21/20 09:00 06/24/20 16:15 Lidocaine 5% Patch TD Not Given DAILY REINA Miscellaneous Medication 1 each 06/20/20 21:00 06/23/20 22:32 Lidocaine Patch Removal TOP Not Given 2100 REINA Morphine Sulfate 2 mg 06/19/20 13:00 06/24/20 08:19 Morphine 2 Mg/Ml Vial SLOW IVP 2 mg Q4H PRN Administration Pain Ondansetron HCl 4 mg 06/18/20 16:59 06/24/20 16:39 Ondansetron Pf 4 Mg/2 Ml Vial IVP 4 mg Q4H PRN Administration Nausea/Vomiting Ondansetron HCl 4 mg 06/23/20 14:00 06/24/20 16:16 Ondansetron Odt 4 Mg Tab PO Not Given Q6H REINA Pantoprazole Sodium 40 mg 06/18/20 21:00 06/24/20 08:17 Pantoprazole 40 Mg Tab PO 40 mg BID REINA Administration Paroxetine HCl 10 mg 06/19/20 09:00 06/24/20 08:15 Paroxetine 20 Mg Tab PO 10 mg DAILY REINA Administration Sodium Chloride 10 ml 06/23/20 21:00 06/24/20 08:19 Flush - Normal Saline 10 Ml Syringe IVF 10 ml Q12HR REINA Administration - Exam General Appearance: NAD, awake alert Eye: PERRL, anicteric sclera ENT: normocephalic atraumatic, no oropharyngeal lesions Neck: no JVD Heart: RRR, no murmur, no gallops, no rubs Respiratory: CTAB, no wheezes, no rales, no ronchi Gastrointestinal: soft, non-tender, non-distended, normal bowel sounds Extremities: no cyanosis, no clubbing, no edema Skin: normal turgor, no lesions, no rashes Neurological: cranial nerve grossly intact, normal sensation to touch, no focal deficits, no new deficit Hosp A/P - Plan CT abdomen: distended GB Abd US: distended GB ECHO: EF 50-55% diastolic dysfunction, mild MR, mild TR Chest X ray: negative This is 65 year old female who presented with abdominal pain, nausea/vomiting #Abdominal pain - possibly secondary to Campylobacter infection vs hyperemesis syndrome - Abd US and CT abdomen showed distended gallbladder. Lipase was normal . Lactic acid 7.2 on admisson, but no blood in stools. HIDA scan normal. No ovarian pathology on CT abdomen and pt has had hysterectomy - GI consulted, had an EGD which was normal. - continue protonix - celiac panel is negative - stool culture tested positive for Campylobacter infection, completed azithromycin for three days - 06/24: tolerated clear liquid diet, will keep on clears and advance tomorrow Cerumen in left ear - continue debrox Folate deficiency anemia -folic acid level 2. Continue folic acid supplementation #Diarrhea- resolved - stool cultures ordered, but not done since no BM today yet #Hypotension- resolved #Lactic acidosis - resolved History of Erosive esophagitis - resolved, not on current EGD Alcoholism - drinks three beers daily. Monitor for any withdrawal
[2020-06-24] MEDS: Ketorolac Tromethamine 30 MG/ML VIAL IVP PRN (18:38)
[2020-06-24] MEDS: Lidocaine Patch Removal TOP SCH (20:22)
[2020-06-24] MEDS: Lorazepam 0.5 MG TAB PO PRN (23:44)
[2020-06-25 05:32] LABS: Band 2 % (5-11); Eosinophils 4 % (0-10); Hemoglobin 10.4 g/dL (12.0-16.0); Hypochromia SLIGHT = 6-15 cells (100X) (0-5/hpf); Lymphocytes 30 % (21-51); MDiff Complete? YES; Macrocytosis SLIGHT = 6-15 cells (100X) (0-5/hpf); Mean Corpuscular HGB CONC 31.6 g/dL (32.0-36.0); Mean Corpuscular Hemoglobin 36.4 pg (27.0-31.0); Mean Platelet Volume 8.1 fL (7.4-10.4); Monocytes 2 % (0-10); Neutrophil 62 % (42-75); Platelet Count 151 thou/uL (130-400); Platelet Morphology Comment Appears Adequate; RBC Distribution Width 15.6 % (11.5-14.5); Red Blood Cell (RBC) Count 2.85 mill/uL (4.20-5.40); White Blood Cell (WBC) Count 3.7 thou/uL (4.8-10.8)
[2020-06-25] MEDS: Ondansetron ODT 4 MG TAB PO SCH ×4 (05:32→20:39)
[2020-06-25 05:48] LABS: Anion Gap 11 mmol/L (10-20); BUN (Urea Nitrogen) Less than 4 mg/dL (9.8-20.1); Calc. Creatinine Clearance 90 mL/min (70-130); Carbon Dioxide 22 mmol/L (23-31); Chloride 109 mmol/L (98-107); Estimated GFR-MDRD 86; Sodium 138 mmol/L (136-145)
[2020-06-25 05:49] LABS: ALT (SGPT) 10 U/L (8-55); AST (SGOT) 20 U/L (5-34); Albumin 2.1 g/dL (3.4-4.8); Alkaline Phosphatase 100 U/L (40-110); Bilirubin, Total 0.4 mg/dL (0.2-1.2); Calcium 7.6 mg/dL (7.8-10.44); Globulin 2.6 g/dL (2.4-3.5); Glucose 94 mg/dL (80-115); Protein, Total 4.7 g/dL (6.0-8.3)
[2020-06-25] MEDS: PARoxetine 20 MG TAB PO SCH (09:06)
[2020-06-25] MEDS: Aspirin 81 mg Enteric Coated Tablet PO SCH (09:06)
[2020-06-25] MEDS: Atorvastatin Calcium 10 MG TAB PO SCH (09:06)
[2020-06-25] MEDS: Carbamide Peroxide 6.5% Otic Drops 15 ml Bottle L EAR SCH ×2 (09:07→20:55)
[2020-06-25] MEDS: Lidocaine 5% Patch TD SCH (09:07)
[2020-06-25] MEDS: Folic Acid 1 MG TAB PO SCH (09:07)
[2020-06-25] MEDS: Lorazepam 0.5 MG TAB PO PRN ×2 (09:10→20:39)
[2020-06-25] MEDS: Morphine 2 MG/ML VIAL SLOW IVP PRN ×2 (09:37→20:46)
[2020-06-25] MEDS ORDERED: Polyethylene Glycol 3350 17 GM Packet PO PRN (09:46)
[2020-06-25] MEDS ORDERED: Bisacodyl 10 MG SUPP PR PRN (09:46)
[2020-06-25] MEDS: Dicyclomine 20 MG TAB PO PRN ×2 (11:04→17:23)
[2020-06-25] MEDS: Ondansetron PF 4 MG/2 ML Vial IVP PRN (12:01)
--- NOTE | 2020-06-25 19:05 | PDOC.HOSPP ---
- Subjective Encounter Date: 06/25/20 Encounter Time: 09:00 Subjective: The patient reported some dry heaving after drinking broth this am. She did not take her nausea medicine this morning. Later on she received zofran and suppository since she reported no BM in three days She reported improvement in symptoms, tolerated clear liquid diet this afternoon. She was advanced to full liquid diet and says she did well. She does not want to go home tonight because [place] - Objective Vital Signs & Weight: Vital Signs (12 hours) Temp Pulse Resp BP Pulse Ox 06/25/20 07:14 97.9 F 90 18 139/79 95 Weight Admit Weight 157 lb 6.4 oz Weight 157 lb 6.4 oz I&O: 06/24/20 06/25/20 06/26/20 06:59 06:59 06:59 Intake Total 1100 680 Balance 1100 680 Result Diagrams: 06/25/20 05:07 06/25/20 05:07 Hospitalist ROS - Review of Systems Constitutional: denies: fever, chills - Medication Medications: Active Medications Generic Name Dose Route Start Last Admin Trade Name Freq PRN Reason Stop Dose Admin Aspirin 81 mg 06/19/20 09:00 06/25/20 09:06 Aspirin 81 Mg Enteric Coated Tablet PO 81 mg DAILY REINA Administration Atorvastatin Calcium 10 mg 06/19/20 09:00 06/25/20 09:06 Atorvastatin Calcium 10 Mg Tab PO 10 mg DAILY REINA Administration Bisacodyl 10 mg 06/25/20 09:46 06/25/20 11:04 Bisacodyl 10 Mg Supp SC 10 mg Q8H PRN Administration Constipation Carbamide Perox/Anhydrous Glycerin 5 drop 06/24/20 09:00 06/25/20 09:07 Carbamide Peroxide 6.5% Otic Drops 15 Ml Bottle L EAR 5 drp BID REINA Administration Dicyclomine HCl 20 mg 06/23/20 22:35 06/25/20 17:23 Dicyclomine 20 Mg Tab PO 20 mg QID PRN Administration ABDOMINAL CRAMPS Folic Acid 1 mg 06/22/20 09:00 06/25/20 09:07 Folic Acid 1 Mg Tab PO 1 mg DAILY REINA Administration Ketorolac Tromethamine 15 mg 06/24/20 10:59 06/24/20 18:38 Ketorolac Tromethamine 30 Mg/Ml Vial IVP 10/06/20 11:00 15 mg Q6H PRN Administration Pain Lidocaine 1 patch 06/21/20 09:00 06/25/20 09:07 Lidocaine 5% Patch TD Not Given DAILY REINA Lorazepam 0.5 mg 06/23/20 12:43 06/25/20 09:10 Lorazepam 0.5 Mg Tab PO 0.5 mg Q4H PRN Administration Alcohol Withdrawal Miscellaneous Medication 1 each 06/20/20 21:00 06/24/20 20:22 Lidocaine Patch Removal TOP Not Given 2100 [facility] Morphine Sulfate 2 mg 06/19/20 13:00 06/25/20 09:37 Morphine 2 Mg/Ml Vial SLOW IVP 2 mg Q4H PRN Administration Pain Ondansetron HCl 4 mg 06/18/20 16:59 06/25/20 12:01 Ondansetron Pf 4 Mg/2 Ml Vial IVP 4 mg Q4H PRN Administration Nausea/Vomiting Ondansetron HCl 4 mg 06/23/20 14:00 06/25/20 17:23 Ondansetron Odt 4 Mg Tab PO 4 mg Q6H REINA Administration Pantoprazole Sodium 40 mg 06/18/20 21:00 06/25/20 09:06 Pantoprazole 40 Mg Tab PO 40 mg BID REINA Administration Paroxetine HCl 10 mg 06/19/20 09:00 06/25/20 09:06 Paroxetine 20 Mg Tab PO 10 mg DAILY REINA Administration Polyethylene Glycol 17 gm 06/25/20 09:46 06/25/20 11:04 Polyethylene Glycol 3350 17 Gm Packet PO 17 gm DAILYPRN PRN Administration Constipation Sodium Chloride 10 ml 06/23/20 21:00 06/25/20 09:08 Flush - Normal Saline 10 Ml Syringe IVF 10 ml Q12HR REINA Administration - Exam General Appearance: NAD, awake alert Eye: PERRL, anicteric sclera ENT: normocephalic atraumatic, no oropharyngeal lesions Neck: supple, no JVD Heart: RRR, no murmur, no gallops, no rubs Respiratory: CTAB, no wheezes, no rales Gastrointestinal: soft, non-tender, non-distended, normal bowel sounds Extremities: no cyanosis, no clubbing, no edema Skin: normal turgor, no lesions, no rashes Neurological: cranial nerve grossly intact, normal sensation to touch, no focal deficits, no new deficit Musculoskeletal: normal tone, normal strength, no muscle wasting Psychiatric: normal affect, normal behavior, A&O x 3, oriented to person Hosp A/P - Plan CT abdomen: distended GB Abd US: distended GB ECHO: EF 50-55% diastolic dysfunction, mild MR, mild TR Chest X ray: negative This is 65 year old female who presented with abdominal pain, nausea/vomiting #Abdominal pain - possibly secondary to Campylobacter infection vs hyperemesis syndrome - Abd US and CT abdomen showed distended gallbladder. Lipase was normal . Lactic acid 7.2 on admisson, but no blood in stools. HIDA scan normal. No ovarian pathology on CT abdomen and pt has had hysterectomy - GI consulted, had an EGD which was normal. - continue protonix - celiac panel is negative - stool culture tested positive for Campylobacter infection, completed azithromycin for three days - 06/25: she tolerated full liquid diet, advance to low fiber diet and possibly d/c home tomorrow Cerumen in left ear - continue debrox Folate deficiency anemia -folic acid level 2. Continue folic acid supplementation #Diarrhea- resolved - stool cultures ordered, but not done since no BM today yet #Hypotension- resolved #Lactic acidosis - resolved History of Erosive esophagitis - resolved, not on current EGD Alcoholism - drinks three beers daily. Monitor for any withdrawal Dispo: d/c in am
[2020-06-25] MEDS: Lidocaine Patch Removal TOP SCH (20:53)
[2020-06-26] MEDS: Ondansetron ODT 4 MG TAB PO SCH ×2 (02:17→08:50)
[2020-06-26 06:26] LABS: Hemoglobin 10.5 g/dL (12.0-16.0); Mean Corpuscular HGB CONC 31.8 g/dL (32.0-36.0); Mean Corpuscular Hemoglobin 36.1 pg (27.0-31.0); Mean Platelet Volume 7.5 fL (7.4-10.4); Platelet Count 166 thou/uL (130-400); RBC Distribution Width 15.2 % (11.5-14.5); White Blood Cell (WBC) Count 3.9 thou/uL (4.8-10.8)
[2020-06-26 06:44] LABS: ALT (SGPT) 8 U/L (8-55); AST (SGOT) 17 U/L (5-34); Albumin 2.2 g/dL (3.4-4.8); Alkaline Phosphatase 106 U/L (40-110); Anion Gap 10 mmol/L (10-20); BUN (Urea Nitrogen) Less than 4 mg/dL (9.8-20.1); Bilirubin, Total 0.4 mg/dL (0.2-1.2); Calc. Creatinine Clearance 88 mL/min (70-130); Calcium 7.9 mg/dL (7.8-10.44); Carbon Dioxide 29 mmol/L (23-31); Chloride 106 mmol/L (98-107); Estimated GFR-MDRD 83; Globulin 2.3 g/dL (2.4-3.5); Glucose 88 mg/dL (80-115); Potassium 3.6 mmol/L (3.5-5.1); Protein, Total 4.5 g/dL (6.0-8.3); Sodium 141 mmol/L (136-145)
[2020-06-26] MEDS: Ondansetron PF 4 MG/2 ML Vial IVP PRN (06:48)
[2020-06-26] MEDS: Dicyclomine 20 MG TAB PO PRN (06:48)
[2020-06-26 07:35] VITALS: BP 145/81; TEMP 97.1
[2020-06-26] MEDS: PARoxetine 20 MG TAB PO SCH (08:44)
[2020-06-26] MEDS: Folic Acid 1 MG TAB PO SCH (08:46)
[2020-06-26] MEDS: Carbamide Peroxide 6.5% Otic Drops 15 ml Bottle L EAR SCH (08:47)
[2020-06-26] MEDS: Lidocaine 5% Patch TD SCH (08:47)
[2020-06-26] MEDS: Lidocaine Patch Removal TOP SCH (08:47)
[2020-06-26] MEDS: Ketorolac Tromethamine 30 MG/ML VIAL IVP PRN (11:28)
--- NOTE | 2020-06-26 15:30 | DIS ---
DATE OF ADMISSION: 06/18/2020 DATE OF DISCHARGE: 06/26/2020 DISCHARGE DISPOSITION: To home. PRIMARY DISCHARGE DIAGNOSES: Abdominal pain; diarrhea; suspected Campylobacter jejuni enteritis, resolved; history of marijuana abuse. PROCEDURES DONE DURING HOSPITALIZATION: Abdominal and pelvic CAT scan done on the day of admission showed moderate gallbladder distention, no pericholecystic fluid, old right 10th and 11th posterior rib fractures. Right upper quadrant ultrasound done on the day of admission showed no sonographic evidence of cholelithiasis or cholecystitis. There is distended gallbladder, which is nonspecific. HIDA scan done on the same day showed normal hepatobiliary scan. Gallbladder ejection fraction was 84%. Echo with 2D Doppler showed EF of 50% to 55%. There is impaired diastolic dysfunction. Upper endoscopy done on 06/21/2020 for intractable nausea, vomiting, abdominal pain, showed small hiatal hernia, otherwise normal. Stool for C diff was negative. Stool for Campylobacter antigen was positive. Shiga 1 and 2 toxins were negative. Stool was negative for Giardia antigen and Cryptosporidium antigen. Blood cultures x2, no growth. Urine culture, no growth. H and H of 10 and 32, platelet count 166, and MCV is 113. BUN is less than 4 and creatinine 0.7. Albumin is 2.2. Vitamin B12 456 and folic acid 2.30. Tissue transglutaminase IgG less than 0.6. Tissue transglutaminase IgA 0.8. Gliadin IgG less than 0.4. Gliadin IgA 1.4. COVID-19 PCR was negative on 06/18/2020. Inpatient consult Dr. Luke Novoa for Gastroenterology. DISCHARGE MEDICATIONS: 1. Aspirin 81 mg p.o. daily. 2. Folic acid 1 mg p.o. daily. 3. Atorvastatin 10 mg p.o. daily. 4. Lopressor 12.5 mg twice daily. 5. Mirtazapine 15 mg p.o. at bedtime. 6. Paroxetine 10 mg p.o. daily. 7. Albuterol inhaler q.4 hourly p.r.n. 8. Topiramate 50 mg twice daily. 9. Bentyl 20 mg 4 times daily p.r.n. 10. Protonix 40 mg p.o. twice daily. 11. Zofran 4 mg p.o. q.6 hourly p.r.n. ALLERGIES: ALLERGIC TO CODEINE, NIACIN, PENICILLIN, AND PROMETHAZINE. DISCHARGE PLAN: The patient to follow up with Dr. Luke Novoa in 2 weeks and primary care physician Dr. Chavez in a week. BRIEF COURSE DURING HOSPITALIZATION: The patient initially got admitted on June 18 with complaints of abdominal pain, nausea, and vomiting. She has also had some diarrhea of 5 days duration. The patient was initially dehydrated with blood pressures of 86/66 due to diarrhea and inadequate oral intake. She was gently hydrated up. She has had stool studies done, which came back positive for Campylobacter antigen. The patient's intractable nausea, vomiting, and abdominal pain continued and has had GI consultation with Dr. Luke Novoa. Upper endoscopy did not reveal any significant factors contributing to her symptoms. At the time of discharge, the patient's diarrhea has resolved. She is hemodynamically stable, ambulating and tolerating oral solid diet. She needs to follow up with her primary care physician in 1 week. Please note, I have seen and examined the patient on the day of discharge. Job ID: [id number]
--- NOTE | 2020-06-28 05:27 | PQF ---
CLINICAL DOCUMENTATION CLARIFICATION FORM: Dear : Nancy Zamudio Date / Time: 06/28/20 6952 Please exercise your independent, professional judgment in responding to the clarification form. Clinical indicators are provided on the bottom of this form for your review Please check appropriate box(s): [ ] Hypovolemic Shock [ ] Shock Unspecified [ x ] Other diagnosis __severe dehydration, no shock [ ] Unable to determine In addition, please specify: Present on Admission (POA): [ x] Yes [ ] No [ ] Unable to determine Physician Signature: Date/Time: For continuity of documentation, please document condition throughout progress notes and discharge summary. Thank You. To be completed by CDI/Coding staff for physician review: Present Clinical Indicators - Signs / Symptoms / Labs Results and Location in Medical Record [X] BP 87/64, Pulse 118, Resp 21. Temp 98 Vital signs 06/18 [X] Dehydration (Hypovolemia) ED notes 912 06/18 [X] Presenting with 3 day hx of abdominal pain, preceded by nausea, vomiting, diarrhea of 6day-duration H&P p1 06/18 Dr Castro [X] Though she has poor po intake initially, blood pressure was 87/67 and tachycardia with rate of 110 H&P p1 06/18 Dr Castro [X] NSTEMI, type 2 metabolic mismatch, probably due to demand ischemia secondary to overall picture of dehydration and low blood pressure H&P p3 06/18 Dr Castro [X] Pt was initially dehydrated with blood pressure of 86/66 due to diarrhea and inadequate oral intake DS p2 06/26 Dr Zamudio [X] Hypotension PN p5 06/25 Dr. Lee [X] Lactic acidosis PN p5 06/25 Dr. Lee Present Risk Factors Results and Location in Medical Record [X] 65 year-old Female H&P p1 06/18 Dr Castro [X] HTN H&P p1 06/18 Dr Castro [X] Hx of lung cancer H&P p1 06/18 Dr Castro [X] Smoker H&P p1 06/18 Dr Castro [X] Marijuana abuse H&P p1 06/18 Dr Castro Present Treatments Results and Location in Medical Record [X] IVF Bolus Normal Saline 0.9% 2L MAR 06/18 [X] IV Zofran 4 mg NOV 30 [X] GE consult Consult Case 06/20 CDS/Representative Government Relations Signature: Laura Goncalves Phone #: ext [phone] Date/Time: 06/28/2020 0526 This is a permanent part of the Medical Record [facility]
--- NOTE | 2020-06-30 16:33 | EKG ---
Test Reason : ABDOMINAL PAIN Blood Pressure : / mmHG Vent. Rate : 119 BPM Atrial Rate : 117 BPM P-R Int : 000 ms QRS Dur : 076 ms QT Int : 426 ms P-R-T Axes : 000 019 065 degrees QTc Int : 599 ms Sinus tachycardia Septal infarct , age undetermined Prolonged QT Abnormal ECG [employer] Confirmed by MAJO VALENCIA DO ([id number]), business editor ZINA WHITE ([id number]) on 06/30/2020 4:32:33 PM Referred By: Confirmed By:MAJO VALENCIA DO
--- NOTE | 2020-07-02 05:46 | PQF ---
CLINICAL DOCUMENTATION CLARIFICATION FORM: Dear : Nancy Zamudio Date / Time: 07/02/20 0076 Please exercise your independent, professional judgment in responding to the clarification form. Clinical indicators are provided on the bottom of this form for your review Please check appropriate box(es) to clarify if the following diagnosis has been ruled in our ruled out: NSTEMI type 2 [ ] Ruled in diagnosis [ ] Continue to treat [ ] Resolved [ x ] Ruled out diagnosis [ ] Improving [ ] Cannot rule out diagnosis [ ] Other diagnosis, please specify: [ ] Unable to determine Physician Signature: Date/Time: For continuity of documentation, please document condition throughout progress notes and discharge summary. Thank You. To be completed by CDI/Coding staff for physician review: Present Clinical Indicators - Signs / Symptoms / Labs Results and Location in Medical Record [X] Troponin: 06/18 10:00=0.083 06/18 13.26=0.065 06/18 16:32=0.104 Laboratory 06/18 [X] BP 87/64, Pulse 118, Resp 21. Temp 98 Vital signs 06/18 [X] EKG Impression: Sinus Tachycardia, Rate 119, ST segments normal, T wave normal Order 06/18 Dr Castro [X] Indetermine troponin H&P p2 06/18 Dr Castro [X] NSTEMI, type 2 metabolic mismatch, probably due to demand ischemia secondary to overall picture of dehydration and low blood pressure H&P p3 06/18 Dr Castro [X] Elevated troponin ED Notes p5 Dr. Carey [X] Chief Complain: Abdominal pain, nausea and vomiting H&P p1 06/18 Dr Castro [X] She also reported some pain in mid stomach area radiating to her back PN p1 06/19 Dr. Lee [X] Echocardiogram: There is impaired diastolic dysfunction DS p1 06/26 Dr. Zamudio [X] CK-MB: 06/18 13.26=1.8 06/18 16:32=1.9 Laboratory 06/18 Present Risk Factors Results and Location in Medical Record [X] 65 year-old Female H&P p1 06/18 Dr Castro [X] HTN H&P p1 06/18 Dr Castro [X] Smoker H&P p1 06/18 Dr Castro [X] Marijuana abuse H&P p1 06/18 Dr Castro [X] Mitral and tricuspid regurgitation PN p3 06/19 Dr. Lee [X] HLD Consult p2 06/20 Dr. Lee [X] History of [place] ED Notes p2 Dr. Carey Present Treatments Results and Location in Medical Record [X] Nitroglycerin 0.4mg SL PRN NOV 30 [X] TTE Cardiac Procedure Dr Graves 06/19 [X] EKG Order 06/18 Dr Castro [X] Monitor Troponin H&P p3 06/18 Dr Castro [X] Brilinta 90mg Oral NOV 30 [X] Aspirin 81mg Oral NOV 30 CDS/Multiple Drill Operator Signature: Laura Goncalves Phone #: ext [phone] Date/Time: 07/02/2020 0545 This is a permanent part of the Medical Record [facility]
== END 2020-06-26 13:08 | disposition home or self-care (01) | DRG 372 ==
LOC: ERS 09:29 → 2NO 13:27 → T4-B 06-23 16:11
PROVIDERS: ADMIT Internal Medicine; ATTEND Internal Medicine
PROC: 0DJ08ZZ Inspection of Upper Intestinal Tract, Via Natural or Artificial Opening Endoscopic (ICD-10-PCS; principal; 2020-06-21)
DX: A04.5 Campylobacter enteritis (principal); E87.2 Acidosis; Z20.828 Contact with and (suspected) exposure to other viral communicable diseases; E86.0 Dehydration; I10 Essential (primary) hypertension; J45.909 Unspecified asthma, uncomplicated; E87.6 Hypokalemia; F10.20 Alcohol dependence, uncomplicated; K44.9 Diaphragmatic hernia without obstruction or gangrene; N80.0 Endometriosis of uterus; D52.9 Folate deficiency anemia, unspecified; F12.10 Cannabis abuse, uncomplicated; H61.22 Impacted cerumen, left ear; I95.9 Hypotension, unspecified; I08.1 Rheumatic disorders of both mitral and tricuspid valves; F17.210 Nicotine dependence, cigarettes, uncomplicated; K20.80 Other esophagitis without bleeding; Z88.5 Allergy status to narcotic agent; Z88.0 Allergy status to penicillin; Z88.8 Allergy status to other drugs, medicaments and biological substances; I25.2 Old myocardial infarction; Z85.118 Personal history of other malignant neoplasm of bronchus and lung; Z92.3 Personal history of irradiation; Z92.21 Personal history of antineoplastic chemotherapy; Z79.899 Other long term (current) drug therapy; Z79.82 Long term (current) use of aspirin; Z90.710 Acquired absence of both cervix and uterus
CPT/HCPCS: 36415; 51701; 71045; 74177; 76705; 78227; 80053; 81003; 82550; 82553; 82607; 82746; 83516; 83605; 83690; 84443; 84484; 85007; 85025; 85027; 87040; 87045; 87046; 87086; 87324; 87328; 87329; 87427; 87449; 87635; 93005; 93306; 96361; 96365; 96366; 96367; 96375; A9537; J0692; J1885; J2270; J2405; J2704; J3370; J3480; J3490; Q0162; Q9967; U0003

== ENCOUNTER 2020-12-02 10:14 | Outpatient (CLI) | payer MEDICARE | END 2020-12-02 10:15 | disposition home or self-care (01) | LOC: BICCT 10:14 | PROVIDERS: ATTEND Internal Medicine Hematology & Oncology | DX: C34.12 Malignant neoplasm of upper lobe, left bronchus or lung (principal); J90 Pleural effusion, not elsewhere classified; J98.4 Other disorders of lung; Z98.890 Other specified postprocedural states | CPT/HCPCS: 71260; 82565 ==

== ENCOUNTER 2021-01-06 13:46 | Outpatient (CLI) | payer MEDICARE | END 2021-01-06 13:47 | disposition home or self-care (01) | LOC: BICRAD 13:46 | PROVIDERS: ATTEND Internal Medicine Hematology & Oncology | DX: J90 Pleural effusion, not elsewhere classified (principal); Z85.118 Personal history of other malignant neoplasm of bronchus and lung | CPT/HCPCS: 36415; 71046; 80053; 82248; 83615; 84100; 84550 ==

== ENCOUNTER 2021-04-29 17:49 | Inpatient (IN) | payer MEDICARE ==
[~2021-04-29 17:49] MED LIST: Iopamidol-370 76% 500 ML 1 ML ONE
[2021-04-29] MEDS ORDERED: Ondansetron PF 4 MG/2 ML Vial ONE (18:01)
[2021-04-29] MEDS ORDERED: Albuterol Sulfate 1.25 MG/3 ML NEB ONE (18:28)
[2021-04-29 18:31] LABS: #Lymphocytes 0.7 thou/uL (1.20-3.40); #Monocytes 0.7 thou/uL (0.11-0.59); #Neutrophils 5.9 thou/uL (1.40-6.50); %Basophils 0.3 % (0.0-1.0); %Eosinophils 0.4 % (0.0-10.0); %Lymphocytes 10.1 % (21.0-51.0); %Monocytes 8.9 % (0.0-10.0); %Neutrophils 80.4 % (42.0-75.0); Hemoglobin 14.4 g/dL (12.0-16.0); Mean Corpuscular HGB CONC 32.8 g/dL (32.0-36.0); Mean Corpuscular Hemoglobin 38.7 pg (27.0-31.0); Mean Platelet Volume 7.4 fL (7.4-10.4); Platelet Count 181 thou/uL (130-400); RBC Distribution Width 13.7 % (11.5-14.5); Red Blood Cell (RBC) Count 3.71 mill/uL (4.20-5.40); White Blood Cell (WBC) Count 7.3 thou/uL (4.8-10.8)
[2021-04-29 18:42] LABS: ALT (SGPT) 10 U/L (8-55); AST (SGOT) 18 U/L (5-34); Albumin 2.8 g/dL (3.4-4.8); Alkaline Phosphatase 115 U/L (40-110); Anion Gap 11 mmol/L (10-20); BUN (Urea Nitrogen) 8 mg/dL (9.8-20.1); Bilirubin, Total 0.5 mg/dL (0.2-1.2); Calc. Creatinine Clearance 0 mL/min (70-130); Calcium 7.6 mg/dL (7.8-10.44); Carbon Dioxide 32 mmol/L (23-31); Chloride 97 mmol/L (98-107); Globulin 2.5 g/dL (2.4-3.5); Glucose 112 mg/dL (80-115); Lipase 9 U/L (8-78); Protein, Total 5.3 g/dL (5.8-8.1); Sodium 137 mmol/L (136-145)
[2021-04-29 18:45] LABS: MDiff Complete? YES; Macrocytosis SLIGHT = 6-15 cells (100X) (0-5/hpf); Platelet Morphology Comment Appears Adequate
[2021-04-29 18:47] LABS: Potassium 2.8 mmol/L (3.5-5.1)
[2021-04-29] MEDS ORDERED: methylPREDNISolone Sod Succ/PF 125 MG/2 ML VIAL ONE (19:04)
[2021-04-29] MEDS ORDERED: Enoxaparin Sodium 40 MG/0.4 ML SYRINGE ONE (21:17)
[2021-04-29] MEDS ORDERED: Enoxaparin Sodium 30 MG/0.3 ML SYRINGE ONE (21:17)
[2021-04-29] MEDS ORDERED: Sodium Chloride For Inhalation 0.9% 3 ML NEB ONE (21:19)
[2021-04-29 21:23] LABS: SARS-CoV-2 NAA Rapid Test Not Detected (NotDetected)
[2021-04-29 23:04] LABS: Troponin I Less than 0.010 ng/mL (< 0.028)
[2021-04-30 01:28] VITALS: BMI 26.5
[2021-04-30] MEDS ORDERED: Acetaminophen 650 MG Suppository PR PRN (01:42)
[2021-04-30] MEDS ORDERED: Nitroglycerin 0.4 MG TAB (25 Tab Bottle) SL PRN (01:42)
[2021-04-30] MEDS ORDERED: Electrolyte Replacement Protocol 1 EACH FS SCH (01:45)
[2021-04-30] MEDS ORDERED: Electrolyte Replacement Protocol FS PRN (01:45)
[2021-04-30] MEDS ORDERED: Potassium Chloride 20 MEQ/100 ML PREMIX BAG ONE ×2 (01:46→04:52)
[2021-04-30] MEDS ORDERED: Magnesium Sulfate 4 GM in Sodium Chloride 0.9% 250 ML 250 ML IVPB SCH (02:00)
[2021-04-30 02:04] LABS: Anion Gap 16 mmol/L (10-20); BUN (Urea Nitrogen) 7 mg/dL (9.8-20.1); Calc. Creatinine Clearance 83 mL/min (70-130); Calcium 7.4 mg/dL (7.8-10.44); Carbon Dioxide 19 mmol/L (23-31); Chloride 101 mmol/L (98-107); Glucose 142 mg/dL (80-115); Potassium 3.8 mmol/L (3.5-5.1); Sodium 132 mmol/L (136-145)
[2021-04-30] MEDS: Potassium Chloride 20 MEQ in Premix Bag 1 BAG IVPB SCH ×2 (02:15→05:16)
[2021-04-30] MEDS: Sodium Chloride 0.9% 1,000 ML IV SCH ×2 (02:39→17:30)
[2021-04-30 02:47] LABS: Troponin I Less than 0.010 ng/mL (< 0.028)
[2021-04-30 04:34] LABS: #Lymphocytes 0.3 thou/uL (1.20-3.40); #Monocytes 0.1 thou/uL (0.11-0.59); #Neutrophils 4.3 thou/uL (1.40-6.50); %Eosinophils 0.2 % (0.0-10.0); %Lymphocytes 5.5 % (21.0-51.0); %Monocytes 1.8 % (0.0-10.0); %Neutrophils 92.6 % (42.0-75.0); Hemoglobin 13.1 g/dL (12.0-16.0); Mean Corpuscular HGB CONC 32.4 g/dL (32.0-36.0); Mean Corpuscular Hemoglobin 38.5 pg (27.0-31.0); Mean Platelet Volume 7.2 fL (7.4-10.4); Platelet Count 160 thou/uL (130-400); RBC Distribution Width 13.5 % (11.5-14.5); White Blood Cell (WBC) Count 4.7 thou/uL (4.8-10.8)
[2021-04-30 04:43] LABS: Anion Gap 13 mmol/L (10-20); BUN (Urea Nitrogen) 7 mg/dL (9.8-20.1); Calc. Creatinine Clearance 97 mL/min (70-130); Calcium 7.2 mg/dL (7.8-10.44); Carbon Dioxide 23 mmol/L (23-31); Chloride 102 mmol/L (98-107); Glucose 145 mg/dL (80-115); Magnesium 2.4 mg/dL (1.6-2.6); Potassium 3.7 mmol/L (3.5-5.1); Sodium 134 mmol/L (136-145)
[2021-04-30] MEDS ORDERED: Sodium Chloride For Inhalation 0.9% 3 ML NEB ONE (06:49)
[2021-04-30] MEDS ORDERED: Enoxaparin Sodium 40 MG/0.4 ML SYRINGE SC SCH (09:00)
[2021-04-30] MEDS: Enoxaparin Sodium 80 MG/0.8 ML SYRINGE SC SCH ×2 (09:05→21:58)
[2021-04-30] MEDS: Aspirin Chewable 81 MG TAB PO SCH (09:05)
[2021-04-30] MEDS: methylPREDNISolone Sod Succ 40 MG VIAL IVP SCH (09:06)
[2021-04-30] MEDS ORDERED: Aspirin Chewable 81 MG TAB ONE (09:08)
[2021-04-30] MEDS ORDERED: methylPREDNISolone Sod Succ 40 MG VIAL ONE (09:08)
[2021-04-30] MEDS ORDERED: Enoxaparin Sodium 80 MG/0.8 ML SYRINGE ONE (09:08)
[2021-04-30] MEDS ORDERED: Ondansetron ODT 4 MG TAB ONE ×2 (14:08→17:43)
[2021-04-30] MEDS: Ondansetron ODT 4 MG TAB PO PRN ×2 (14:13→17:42)
[2021-04-30] MEDS ORDERED: Thiamine 100 MG TAB PO SCH (15:00)
[2021-04-30] MEDS ORDERED: Thiamine 100 MG TAB ONE (17:28)
[2021-04-30] MEDS: Acetaminophen 325 MG TAB PO PRN ×2 (17:41→21:58)
[2021-04-30] MEDS ORDERED: Acetaminophen 325 MG TAB ONE (17:43)
[2021-04-30] MEDS: Metoprolol Tartrate 25 MG TAB PO SCH (21:58)
[2021-05-01] MEDS: Ondansetron ODT 4 MG TAB PO PRN ×2 (00:01→15:37)
[2021-05-01] MEDS ORDERED: traZODone HCl 50 MG TAB PO SCH (01:30)
[2021-05-01] MEDS: Sodium Chloride 0.9% 1,000 ML IV SCH ×3 (05:13→15:36)
[2021-05-01] MEDS: Aspirin Chewable 81 MG TAB PO SCH (08:50)
[2021-05-01] MEDS: Enoxaparin Sodium 80 MG/0.8 ML SYRINGE SC SCH ×2 (08:51→20:01)
[2021-05-01] MEDS: Folic Acid 1 MG TAB PO SCH (08:52)
[2021-05-01] MEDS: Metoprolol Tartrate 25 MG TAB PO SCH ×2 (08:53→19:58)
[2021-05-01] MEDS: Thiamine 100 MG TAB PO SCH (08:53)
[2021-05-01] MEDS: methylPREDNISolone Sod Succ 40 MG VIAL IVP SCH ×3 (09:15→23:25)
[2021-05-01] MEDS: Acetaminophen 325 MG TAB PO PRN ×2 (15:37→19:59)
[2021-05-01] MEDS ORDERED: Benzonatate 100 MG CAP PO SCH (17:00)
[2021-05-01] MEDS: Atorvastatin Calcium 10 MG TAB PO SCH (19:58)
[2021-05-01] MEDS: Mirtazapine 15 MG TAB PO SCH (19:59)
[2021-05-01] MEDS: guaiFENesin ER 600 MG TAB PO SCH (19:59)
[2021-05-01] MEDS: Benzonatate 100 MG CAP PO SCH (19:59)
[2021-05-01] MEDS: traZODone HCl 50 MG TAB PO SCH (20:03)
[2021-05-01] MEDS: Melatonin 3 MG TAB PO SCH (20:25)
[2021-05-02] MEDS: methylPREDNISolone Sod Succ 40 MG VIAL IVP SCH (05:11)
[2021-05-02] MEDS: Sodium Chloride 0.9% 1,000 ML IV SCH (05:11)
[2021-05-02 07:34] LABS: #Basophils 0.1 thou/uL (0.0-0.2); #Lymphocytes 0.2 thou/uL (1.20-3.40); #Monocytes 0.1 thou/uL (0.11-0.59); #Neutrophils 5.1 thou/uL (1.40-6.50); %Basophils 1.7 % (0.0-1.0); %Eosinophils 0.1 % (0.0-10.0); %Monocytes 2.2 % (0.0-10.0); Hemoglobin 13.5 g/dL (12.0-16.0); Mean Corpuscular Hemoglobin 38.2 pg (27.0-31.0); Mean Platelet Volume 7.3 fL (7.4-10.4); Platelet Count 171 thou/uL (130-400); RBC Distribution Width 13.7 % (11.5-14.5); Red Blood Cell (RBC) Count 3.54 mill/uL (4.20-5.40); White Blood Cell (WBC) Count 5.5 thou/uL (4.8-10.8)
[2021-05-02 07:50] LABS: Anion Gap 9 mmol/L (10-20); BUN (Urea Nitrogen) 6 mg/dL (9.8-20.1); Calc. Creatinine Clearance 84 mL/min (70-130); Calcium 7.8 mg/dL (7.8-10.44); Carbon Dioxide 26 mmol/L (23-31); Chloride 109 mmol/L (98-107); Glucose 147 mg/dL (80-115); Potassium 3.7 mmol/L (3.5-5.1); Sodium 140 mmol/L (136-145)
[2021-05-02] MEDS: Acetaminophen 325 MG TAB PO PRN ×4 (08:41→22:12)
[2021-05-02] MEDS: Metoprolol Tartrate 25 MG TAB PO SCH ×2 (08:42→21:30)
[2021-05-02] MEDS: Benzonatate 100 MG CAP PO SCH ×3 (08:42→21:30)
[2021-05-02] MEDS: guaiFENesin ER 600 MG TAB PO SCH ×2 (08:42→21:30)
[2021-05-02] MEDS: Apixaban 5 MG TAB PO SCH ×2 (08:42→21:30)
[2021-05-02] MEDS: Aspirin Chewable 81 MG TAB PO SCH (08:42)
[2021-05-02] MEDS: Folic Acid 1 MG TAB PO SCH (08:42)
[2021-05-02] MEDS: predniSONE 20 MG TAB PO SCH (08:43)
[2021-05-02] MEDS: Thiamine 100 MG TAB PO SCH (09:08)
[2021-05-02] MEDS: Ondansetron ODT 4 MG TAB PO PRN ×2 (17:07→21:30)
[2021-05-02] MEDS ORDERED: Ondansetron ODT 4 MG TAB ONE (21:21)
[2021-05-02] MEDS ORDERED: Acetaminophen 325 MG TAB ONE (21:22)
[2021-05-02] MEDS: Mirtazapine 15 MG TAB PO SCH (21:30)
[2021-05-02] MEDS: traZODone HCl 50 MG TAB PO SCH (21:30)
[2021-05-02] MEDS: Atorvastatin Calcium 10 MG TAB PO SCH (21:30)
[2021-05-02] MEDS: Melatonin 3 MG TAB PO SCH (22:13)
[2021-05-03] MEDS: Apixaban 5 MG TAB PO SCH ×2 (09:00→20:44)
[2021-05-03] MEDS: guaiFENesin ER 600 MG TAB PO SCH ×2 (09:00→20:46)
[2021-05-03] MEDS: Aspirin Chewable 81 MG TAB PO SCH (09:00)
[2021-05-03] MEDS: Metoprolol Tartrate 25 MG TAB PO SCH ×2 (09:01→20:43)
[2021-05-03] MEDS: Benzonatate 100 MG CAP PO SCH ×3 (09:01→20:44)
[2021-05-03] MEDS: Folic Acid 1 MG TAB PO SCH (09:01)
[2021-05-03] MEDS: predniSONE 20 MG TAB PO SCH (09:02)
[2021-05-03] MEDS: Acetaminophen 325 MG TAB PO PRN ×3 (09:05→20:42)
[2021-05-03] MEDS: Ondansetron ODT 4 MG TAB PO PRN ×3 (09:05→20:54)
[2021-05-03] MEDS ORDERED: Calcium Carbonate 500 MG ChewTAB PO PRN (17:52)
[2021-05-03] MEDS: Mirtazapine 15 MG TAB PO SCH (20:44)
[2021-05-03] MEDS: Melatonin 3 MG TAB PO SCH (20:46)
[2021-05-03] MEDS: Atorvastatin Calcium 10 MG TAB PO SCH (20:46)
[2021-05-03] MEDS: traZODone HCl 50 MG TAB PO SCH (20:47)
[2021-05-04] MEDS: Apixaban 5 MG TAB PO SCH ×2 (08:41→22:18)
[2021-05-04] MEDS: Benzonatate 100 MG CAP PO SCH ×3 (08:41→22:17)
[2021-05-04] MEDS: guaiFENesin ER 600 MG TAB PO SCH ×2 (08:41→22:17)
[2021-05-04] MEDS: Aspirin Chewable 81 MG TAB PO SCH (08:41)
[2021-05-04] MEDS: Metoprolol Tartrate 25 MG TAB PO SCH ×2 (08:41→22:18)
[2021-05-04] MEDS: Folic Acid 1 MG TAB PO SCH (08:42)
[2021-05-04] MEDS: predniSONE 20 MG TAB PO SCH (08:42)
[2021-05-04] MEDS: Acetaminophen 325 MG TAB PO PRN ×3 (08:49→22:18)
[2021-05-04] MEDS: Ondansetron PF 4 MG/2 ML Vial IVP PRN ×2 (11:31→17:20)
[2021-05-04] MEDS: traZODone HCl 50 MG TAB PO SCH (22:17)
[2021-05-04] MEDS: Ondansetron ODT 4 MG TAB PO PRN (22:18)
[2021-05-04] MEDS: Atorvastatin Calcium 10 MG TAB PO SCH (22:18)
[2021-05-04] MEDS: Mirtazapine 15 MG TAB PO SCH (22:18)
[2021-05-04] MEDS: Melatonin 3 MG TAB PO SCH (22:19)
[2021-05-05 08:10] VITALS: TEMP 97.6
[2021-05-05] MEDS: predniSONE 20 MG TAB PO SCH (08:32)
[2021-05-05] MEDS: Benzonatate 100 MG CAP PO SCH (08:32)
[2021-05-05] MEDS: Folic Acid 1 MG TAB PO SCH (08:32)
[2021-05-05] MEDS: Metoprolol Tartrate 25 MG TAB PO SCH (08:32)
[2021-05-05] MEDS: Aspirin Chewable 81 MG TAB PO SCH (08:32)
[2021-05-05] MEDS: Apixaban 5 MG TAB PO SCH (08:32)
[2021-05-05] MEDS: guaiFENesin ER 600 MG TAB PO SCH (08:33)
[2021-05-05] MEDS: Acetaminophen 325 MG TAB PO PRN (10:27)
[2021-05-05 12:33] VITALS: BP 98/68
== END 2021-05-05 12:31 | disposition home health service (06) | DRG 175 ==
LOC: ERS 17:49 → ERHOLD 22:13 → 2NO 04-30 20:02 → T4-A 05-01 17:24
PROVIDERS: ADMIT Student in an Organized Health Care Education/Training Program; ATTEND Internal Medicine
DX: I26.99 Other pulmonary embolism without acute cor pulmonale (principal); J96.01 Acute respiratory failure with hypoxia; J44.1 Chronic obstructive pulmonary disease with (acute) exacerbation; K86.1 Other chronic pancreatitis; I10 Essential (primary) hypertension; F17.210 Nicotine dependence, cigarettes, uncomplicated; I25.10 Atherosclerotic heart disease of native coronary artery without angina pectoris; E87.6 Hypokalemia; E83.42 Hypomagnesemia; F10.10 Alcohol abuse, uncomplicated; E86.0 Dehydration; A08.4 Viral intestinal infection, unspecified; Z20.822 Contact with and (suspected) exposure to COVID-19; Z85.118 Personal history of other malignant neoplasm of bronchus and lung; I25.2 Old myocardial infarction; Z88.5 Allergy status to narcotic agent; Z88.0 Allergy status to penicillin; Z79.82 Long term (current) use of aspirin; Z79.899 Other long term (current) drug therapy; I69.30 Unspecified sequelae of cerebral infarction; Z95.5 Presence of coronary angioplasty implant and graft; Z79.51 Long term (current) use of inhaled steroids; Z90.49 Acquired absence of other specified parts of digestive tract; Z90.710 Acquired absence of both cervix and uterus
CPT/HCPCS: 0240U; 36415; 71045; 71275; 80048; 80053; 83605; 83690; 83735; 83880; 84484; 85025; 85379; 87040; 93005; 93306; 94760; 96365; 96372; 96375; J1650; J1956; J2405; J2920; J2930; J3475; J3480; J7050; J7512; J7620; Q0162; Q9967

== ENCOUNTER 2021-07-07 10:19 | Outpatient (CLI) | payer MEDICARE | END 2021-07-07 10:20 | disposition home or self-care (01) | LOC: CT 10:19 | PROVIDERS: ATTEND Internal Medicine Hematology & Oncology | DX: C34.12 Malignant neoplasm of upper lobe, left bronchus or lung (principal); D75.1 Secondary polycythemia | CPT/HCPCS: 71260 ==

== ENCOUNTER 2021-09-23 19:48 | Inpatient (IN) | payer MEDICARE ==
[2021-09-23] MEDS ORDERED: Morphine 4 MG/ML VIAL ONE (20:58)
[2021-09-23] MEDS ORDERED: Ondansetron PF 4 MG/2 ML Vial ONE (20:59)
[2021-09-23 21:13] LABS: ALT (SGPT) 14 U/L (8-55); AST (SGOT) 18 U/L (5-34); Albumin 2.9 g/dL (3.4-4.8); Alkaline Phosphatase 136 U/L (40-110); Anion Gap 15 mmol/L (10-20); BUN (Urea Nitrogen) 7 mg/dL (9.8-20.1); Bilirubin, Total 0.7 mg/dL (0.2-1.2); Calc. Creatinine Clearance 0 mL/min (70-130); Calcium 8.4 mg/dL (7.8-10.44); Carbon Dioxide 26 mmol/L (23-31); Chloride 95 mmol/L (98-107); Globulin 2.9 g/dL (2.4-3.5); Glucose 127 mg/dL (80-115); Lipase 7 U/L (8-78); Potassium 3.4 mmol/L (3.5-5.1); Protein, Total 5.8 g/dL (5.8-8.1); Sodium 133 mmol/L (136-145)
[2021-09-23 21:34] LABS: #Lymphocytes 0.5 thou/uL (1.20-3.40); #Monocytes 0.4 thou/uL (0.11-0.59); #Neutrophils 4.4 thou/uL (1.40-6.50); %Basophils 0.6 % (0.0-1.0); %Eosinophils 0.3 % (0.0-10.0); %Lymphocytes 9.1 % (21.0-51.0); %Monocytes 6.7 % (0.0-10.0); %Neutrophils 83.4 % (42.0-75.0); Hemoglobin 15.7 g/dL (12.0-16.0); MDiff Complete? YES; Macrocytosis SLIGHT = 6-15 cells (100X) (0-5/hpf); Mean Corpuscular HGB CONC 33.2 g/dL (32.0-36.0); Mean Corpuscular Hemoglobin 35.1 pg (27.0-31.0); Mean Platelet Volume 8.1 fL (7.4-10.4); Platelet Count 162 thou/uL (130-400); RBC Distribution Width 13.3 % (11.5-14.5); Red Blood Cell (RBC) Count 4.47 mill/uL (4.20-5.40); White Blood Cell (WBC) Count 5.3 thou/uL (4.8-10.8)
[2021-09-23 21:52] LABS: CK (CPK) 15 U/L (29-168)
[2021-09-23 22:06] LABS: PTT 29.8 sec (22.9-36.1); Prothrombin Time 12.8 sec (12.0-14.7)
[2021-09-23] MEDS ORDERED: Magnesium 2 GM/50 ML BAG (IN WATER) ONE (23:08)
[2021-09-23] MEDS ORDERED: Acetaminophen 325 MG TAB PO PRN (23:40)
[2021-09-24] MEDS ORDERED: Potassium Chloride 20 MEQ in Premix Bag 1 BAG IVPB SCH (00:15)
[2021-09-24] MEDS ORDERED: Magnesium 2 GM/50 ML BAG (IN WATER) ONE (00:18)
[2021-09-24] MEDS ORDERED: Pantoprazole 40 MG VIAL ONE ×2 (00:18→00:20)
[2021-09-24] MEDS ORDERED: Sodium Chloride 0.9% 1,000 ML IV SCH (00:30)
[2021-09-24] MEDS ORDERED: Lorazepam 2 MG/ML VIAL IM PRN (00:53)
[2021-09-24] MEDS ORDERED: Lorazepam 1 MG TAB PO PRN (00:53)
[2021-09-24] MEDS ORDERED: Electrolyte Replacement Protocol 1 EACH FS SCH (01:00)
[2021-09-24] MEDS: Thiamine HCl 200 MG/2 ML VIAL SLOW IVP SCH (02:28)
[2021-09-24 04:44] LABS: #Lymphocytes 0.7 thou/uL (1.20-3.40); #Monocytes 0.5 thou/uL (0.11-0.59); #Neutrophils 4.1 thou/uL (1.40-6.50); %Basophils 0.2 % (0.0-1.0); %Lymphocytes 13.3 % (21.0-51.0); %Monocytes 8.8 % (0.0-10.0); %Neutrophils 77.7 % (42.0-75.0); Hemoglobin 15.4 g/dL (12.0-16.0); Mean Corpuscular HGB CONC 32.3 g/dL (32.0-36.0); Mean Corpuscular Hemoglobin 34.1 pg (27.0-31.0); Mean Platelet Volume 8.1 fL (7.4-10.4); Platelet Count 127 thou/uL (130-400); RBC Distribution Width 13.2 % (11.5-14.5); Red Blood Cell (RBC) Count 4.53 mill/uL (4.20-5.40); White Blood Cell (WBC) Count 5.3 thou/uL (4.8-10.8)
[2021-09-24 05:06] LABS: Troponin I Less than 0.010 ng/mL (< 0.028)
[2021-09-24 05:07] LABS: Phosphorus 3.4 mg/dL (2.3-4.7)
[2021-09-24 05:09] LABS: Anion Gap 15 mmol/L (10-20); BUN (Urea Nitrogen) 7 mg/dL (9.8-20.1); Calc. Creatinine Clearance 75 mL/min (70-130); Calcium 8.1 mg/dL (7.8-10.44); Carbon Dioxide 24 mmol/L (23-31); Chloride 96 mmol/L (98-107); Glucose 105 mg/dL (80-115); Potassium 4.2 mmol/L (3.5-5.1); Sodium 131 mmol/L (136-145)
[2021-09-24] MEDS ORDERED: Magnesium 2 GM/50 ML 2 GM in Premix Bag 1 BAG IVPB SCH (06:00)
[2021-09-24 07:44] LABS: Troponin I Less than 0.010 ng/mL (< 0.028)
[2021-09-24] MEDS: Folic Acid 1 MG TAB PO SCH (08:13)
[2021-09-24] MEDS: Pantoprazole 40 MG VIAL IVP SCH ×2 (08:14→21:09)
[2021-09-24] MEDS ORDERED: FLU VACC QS2021-22(65YR UP)/PF 240 MCG/0.7 ML SYRINGE IM ONE (09:00)
[2021-09-24] MEDS: Magnesium Oxide 250 MG TAB PO SCH (12:01)
[2021-09-24 16:08] LABS: SARS-CoV-2 PCR by NAA Not Detected (NotDetected)
[2021-09-24] MEDS: Ondansetron PF 4 MG/2 ML Vial IVP PRN (18:40)
[2021-09-25] MEDS ORDERED: Lorazepam 1 MG TAB PO PRN (00:56)
[2021-09-25] MEDS: Thiamine HCl 200 MG/2 ML VIAL SLOW IVP SCH (00:58)
[2021-09-25 05:06] LABS: #Lymphocytes 0.8 thou/uL (1.20-3.40); #Monocytes 0.4 thou/uL (0.11-0.59); %Basophils 0.3 % (0.0-1.0); %Eosinophils 0.9 % (0.0-10.0); %Monocytes 9.7 % (0.0-10.0); %Neutrophils 71.2 % (42.0-75.0); Hemoglobin 13.2 g/dL (12.0-16.0); Mean Corpuscular HGB CONC 33.1 g/dL (32.0-36.0); Mean Corpuscular Hemoglobin 35.4 pg (27.0-31.0); Mean Platelet Volume 8.5 fL (7.4-10.4); Platelet Count 127 thou/uL (130-400); RBC Distribution Width 13.2 % (11.5-14.5); Red Blood Cell (RBC) Count 3.73 mill/uL (4.20-5.40); White Blood Cell (WBC) Count 4.3 thou/uL (4.8-10.8)
[2021-09-25] MEDS: Folic Acid 1 MG TAB PO SCH (07:28)
[2021-09-25] MEDS: Magnesium Oxide 250 MG TAB PO SCH (07:28)
[2021-09-25] MEDS: Pantoprazole 40 MG VIAL IVP SCH ×2 (07:30→20:18)
[2021-09-25 11:01] LABS: Chloride 105 mmol/L (98-107); Potassium 4.9 mmol/L (3.5-5.1); Sodium 136 mmol/L (136-145)
[2021-09-25 11:02] LABS: Calcium 8.3 mg/dL (7.8-10.44); Glucose 192 mg/dL (80-115)
[2021-09-25 11:04] LABS: Anion Gap 16 mmol/L (10-20); Carbon Dioxide 20 mmol/L (23-31)
[2021-09-25 11:06] LABS: BUN (Urea Nitrogen) 6 mg/dL (9.8-20.1); Calc. Creatinine Clearance 67 mL/min (70-130)
[2021-09-25 11:07] LABS: Magnesium 1.8 mg/dL (1.6-2.6)
[2021-09-25] MEDS ORDERED: Albuterol Sulfate 2.5 mg/3 ml Neb NEB PRN (12:18)
[2021-09-25] MEDS ORDERED: Magnesium 2 GM/50 ML 2 GM in Premix Bag 1 BAG IVPB SCH (13:00)
[2021-09-25] MEDS ORDERED: Metoprolol Tartrate 25 MG TAB PO SCH (13:30)
[2021-09-25] MEDS ORDERED: Sodium Chloride 0.9% 250 ML IV SCH (14:30)
[2021-09-25] MEDS ORDERED: Sodium Chloride 0.9% 1,000 ML IV SCH (15:00)
[2021-09-25] MEDS: Sodium Chloride 0.9% 1,000 ML IV SCH (16:05)
[2021-09-25] MEDS: Ondansetron PF 4 MG/2 ML Vial IVP PRN (18:41)
[2021-09-25] MEDS: Atorvastatin Calcium 10 MG TAB PO SCH (20:16)
[2021-09-25] MEDS: traZODone HCl 50 MG TAB PO PRN (20:17)
[2021-09-25] MEDS: Mirtazapine 15 MG TAB PO SCH (20:17)
[2021-09-25] MEDS: Metoprolol Tartrate 25 MG TAB PO SCH (20:41)
[2021-09-26] MEDS: Thiamine HCl 200 MG/2 ML VIAL SLOW IVP SCH (00:45)
[2021-09-26] MEDS: Sodium Chloride 0.9% 1,000 ML IV SCH ×3 (00:51→20:42)
[2021-09-26] MEDS ORDERED: Lorazepam 1 MG TAB PO PRN (00:56)
[2021-09-26 05:56] LABS: Anion Gap 12 mmol/L (10-20); BUN (Urea Nitrogen) 4 mg/dL (9.8-20.1); Calc. Creatinine Clearance 79 mL/min (70-130); Calcium 7.8 mg/dL (7.8-10.44); Carbon Dioxide 24 mmol/L (23-31); Chloride 110 mmol/L (98-107); Glucose 105 mg/dL (80-115); Potassium 3.1 mmol/L (3.5-5.1); Sodium 143 mmol/L (136-145)
[2021-09-26 06:23] LABS: Hemoglobin 13.3 g/dL (12.0-16.0); Mean Corpuscular HGB CONC 31.8 g/dL (32.0-36.0); Mean Corpuscular Hemoglobin 34.7 pg (27.0-31.0); Mean Platelet Volume 8.6 fL (7.4-10.4); Platelet Count 109 thou/uL (130-400); RBC Distribution Width 13.3 % (11.5-14.5); Red Blood Cell (RBC) Count 3.84 mill/uL (4.20-5.40); White Blood Cell (WBC) Count 3.3 thou/uL (4.8-10.8)
[2021-09-26] MEDS ORDERED: Potassium Chloride 20 MEQ TAB PO SCH (07:00)
[2021-09-26] MEDS ORDERED: Magnesium 2 GM/50 ML 2 GM in Premix Bag 1 BAG IVPB SCH (07:00)
[2021-09-26] MEDS: Folic Acid 1 MG TAB PO SCH (09:27)
[2021-09-26] MEDS: Pantoprazole 40 MG VIAL IVP SCH ×2 (09:27→20:14)
[2021-09-26] MEDS: Ondansetron PF 4 MG/2 ML Vial IVP PRN (09:27)
[2021-09-26] MEDS: Magnesium Oxide 250 MG TAB PO SCH (09:27)
[2021-09-26] MEDS: Metoprolol Tartrate 25 MG TAB PO SCH ×2 (09:28→20:14)
[2021-09-26] MEDS: PARoxetine 20 MG TAB PO SCH (09:28)
[2021-09-26 11:23] LABS: Band 4 % (5-11); Eosinophils 3 % (0-10); Lymphocytes 23 % (21-51); MDiff Complete? YES; Macrocytosis MODERATE=16-30 cells (100X) (0-5/hpf); Monocytes 9 % (0-10); Neutrophil 61 % (42-75); Platelet Morphology Comment Appears Decreased; Polychromasia SLIGHT = 2-3 cells (100X) (0-2/hpf); Target Cells SLIGHT = 2-5 cells (100X) (0-1/hpf)
[2021-09-26] MEDS: traZODone HCl 50 MG TAB PO PRN (20:14)
[2021-09-26] MEDS: Mirtazapine 15 MG TAB PO SCH (20:14)
[2021-09-26] MEDS: Atorvastatin Calcium 10 MG TAB PO SCH (20:14)
[2021-09-27] MEDS ORDERED: Lorazepam 0.5 MG TAB PO PRN (00:56)
[2021-09-27] MEDS ORDERED: Thiamine 100 MG TAB PO SCH (01:00)
[2021-09-27] MEDS: Folic Acid 1 MG TAB PO SCH (09:35)
[2021-09-27] MEDS: Thiamine 100 MG TAB PO SCH (09:35)
[2021-09-27] MEDS: Pantoprazole 40 MG VIAL IVP SCH (09:35)
[2021-09-27] MEDS: Metoprolol Tartrate 25 MG TAB PO SCH ×2 (09:36→20:17)
[2021-09-27] MEDS: Sodium Chloride 0.9% 1,000 ML IV SCH ×2 (09:36→17:18)
[2021-09-27] MEDS: Magnesium Oxide 250 MG TAB PO SCH (09:36)
[2021-09-27] MEDS: PARoxetine 20 MG TAB PO SCH (09:37)
[2021-09-27 11:07] VITALS: BMI 24.8
[2021-09-27] MEDS ORDERED: Loperamide HCl 2 MG CAP PO SCH (19:17)
[2021-09-27] MEDS: Atorvastatin Calcium 10 MG TAB PO SCH (20:17)
[2021-09-27] MEDS: traZODone HCl 50 MG TAB PO PRN (20:18)
[2021-09-27] MEDS: Mirtazapine 15 MG TAB PO SCH (20:18)
[2021-09-28] MEDS: Sodium Chloride 0.9% 1,000 ML IV SCH ×2 (02:35→14:21)
[2021-09-28] MEDS: Folic Acid 1 MG TAB PO SCH (09:37)
[2021-09-28] MEDS: Thiamine 100 MG TAB PO SCH (09:37)
[2021-09-28] MEDS: Magnesium Oxide 250 MG TAB PO SCH (09:37)
[2021-09-28] MEDS: Metoprolol Tartrate 25 MG TAB PO SCH ×2 (09:37→19:29)
[2021-09-28] MEDS: PARoxetine 20 MG TAB PO SCH (09:37)
[2021-09-28 17:24] VITALS: TEMP 97.8
[2021-09-28] MEDS: Atorvastatin Calcium 10 MG TAB PO SCH (19:29)
[2021-09-28] MEDS: Mirtazapine 15 MG TAB PO SCH (19:29)
[2021-09-28] MEDS: traZODone HCl 50 MG TAB PO PRN (19:29)
[2021-09-28 19:55] VITALS: BP 117/78
== END 2021-09-28 19:34 | DRG 379 ==
LOC: ERS 19:48 → 2NO 23:38 → OBSVTOIN 09-25 10:48
PROVIDERS: ADMIT Internal Medicine; ATTEND Internal Medicine
DX: K57.31 Diverticulosis of large intestine without perforation or abscess with bleeding (principal); Z20.822 Contact with and (suspected) exposure to COVID-19; J44.9 Chronic obstructive pulmonary disease, unspecified; I10 Essential (primary) hypertension; E78.5 Hyperlipidemia, unspecified; F10.10 Alcohol abuse, uncomplicated; E87.6 Hypokalemia; I25.10 Atherosclerotic heart disease of native coronary artery without angina pectoris; F17.210 Nicotine dependence, cigarettes, uncomplicated; F43.10 Post-traumatic stress disorder, unspecified; E83.42 Hypomagnesemia; J45.909 Unspecified asthma, uncomplicated; Z88.6 Allergy status to analgesic agent; Z88.8 Allergy status to other drugs, medicaments and biological substances; Z88.0 Allergy status to penicillin; Z85.118 Personal history of other malignant neoplasm of bronchus and lung; Z90.2 Acquired absence of lung [part of]; Z86.711 Personal history of pulmonary embolism; Z86.73 Personal history of transient ischemic attack (TIA), and cerebral infarction without residual deficits; Z90.710 Acquired absence of both cervix and uterus; Z90.89 Acquired absence of other organs; Z95.5 Presence of coronary angioplasty implant and graft; Z79.82 Long term (current) use of aspirin; Z79.01 Long term (current) use of anticoagulants; Z79.52 Long term (current) use of systemic steroids; Z79.899 Other long term (current) drug therapy; I25.2 Old myocardial infarction
CPT/HCPCS: 36415; 74177; 80048; 80053; 82248; 82274; 82550; 83690; 83735; 84100; 84484; 85025; 85610; 85730; 86850; 86900; 86901; 87045; 87046; 87427; 87449; 90471; 90662; 93005; 93010; 94640; 96375; 96376; C9113; G0008; G0378; J2270; J2405; J3411; J3475; J3480; J7050; J7620; Q9967; U0003; U0005

== ENCOUNTER 2022-01-09 16:57 | Inpatient (IN) | payer MEDICARE ==
[2022-01-09 21:09] VITALS: BMI 24.3
[2022-01-09] MEDS ORDERED: Ondansetron PF 4 MG/2 ML Vial IVP PRN (22:35)
[2022-01-09] MEDS ORDERED: Senokot S 8.6-50 MG TAB PO PRN (22:35)
[2022-01-09] MEDS ORDERED: Guaifenesin DM 100-10/5 ML UDCUP PO PRN (22:35)
[2022-01-09] MEDS ORDERED: Acetaminophen 325 MG TAB PO PRN (22:35)
[2022-01-09] MEDS ORDERED: Bisacodyl 5 MG TAB PO PRN (22:35)
[2022-01-09] MEDS ORDERED: Dicyclomine 20 MG TAB PO PRN (22:51)
[2022-01-09] MEDS ORDERED: Benzonatate 100 MG CAP PO PRN (22:51)
[2022-01-09] MEDS ORDERED: Mirtazapine 15 MG TAB PO PRN (22:51)
[2022-01-09] MEDS ORDERED: Melatonin 3 MG TAB PO PRN (22:51)
[2022-01-09] MEDS ORDERED: Nitroglycerin 0.4 MG TAB (25 Tab Bottle) SL PRN (22:51)
[2022-01-09 23:12] LABS: #Eosinphils 0.1 thou/uL (0.0-0.7); #Lymphocytes 0.8 thou/uL (1.20-3.40); #Monocytes 0.7 thou/uL (0.11-0.59); #Neutrophils 2.9 thou/uL (1.40-6.50); %Basophils 0.4 % (0.0-1.0); %Eosinophils 2.7 % (0.0-10.0); %Lymphocytes 17.5 % (21.0-51.0); %Monocytes 14.3 % (0.0-10.0); %Neutrophils 65.1 % (42.0-75.0); Hemoglobin 10.5 g/dL (12.0-16.0); Mean Corpuscular HGB CONC 31.1 g/dL (32.0-36.0); Mean Corpuscular Hemoglobin 32.9 pg (27.0-31.0); Mean Platelet Volume 7.9 fL (7.4-10.4); Platelet Count 190 thou/uL (130-400); RBC Distribution Width 13.1 % (11.5-14.5); White Blood Cell (WBC) Count 4.5 thou/uL (4.8-10.8)
[2022-01-09] MEDS ORDERED: Mometasone 100 MCG/Formoterol 5 MCG 120 PUFF INHALER INH SCH (23:15)
[2022-01-09] MEDS ORDERED: Gabapentin 300 MG CAP PO SCH (23:15)
[2022-01-09] MEDS ORDERED: Saccharomyces boulardii 250 MG CAP PO SCH (23:15)
[2022-01-09] MEDS ORDERED: Topiramate 25 MG TAB PO SCH (23:15)
[2022-01-09] MEDS ORDERED: Atorvastatin Calcium 40 MG TAB PO SCH (23:15)
[2022-01-09 23:34] LABS: ALT (SGPT) 15 U/L (8-55); AST (SGOT) 12 U/L (5-34); Albumin 2.2 g/dL (3.4-4.8); Alkaline Phosphatase 128 U/L (40-110); Anion Gap 10 mmol/L (10-20); BUN (Urea Nitrogen) 14 mg/dL (9.8-20.1); Bilirubin, Total 0.3 mg/dL (0.2-1.2); Calc. Creatinine Clearance 67 mL/min (70-130); Carbon Dioxide 26 mmol/L (23-31); Chloride 108 mmol/L (98-107); Globulin 2.2 g/dL (2.4-3.5); Glucose 96 mg/dL (80-115); Magnesium 1.4 mg/dL (1.6-2.6); Phosphorus 3.3 mg/dL (2.3-4.7); Protein, Total 4.4 g/dL (5.8-8.1); Sodium 140 mmol/L (136-145)
[2022-01-10] MEDS ORDERED: Magnesium 2 GM/50 ML(in water) 2 GM in Premix Bag 1 BAG IVPB SCH (00:15)
[2022-01-10] MEDS ORDERED: Magnesium Oxide 400 MG TAB PO SCH (00:30)
[2022-01-10] MEDS ORDERED: Enoxaparin Sodium 30 MG/0.3 ML SYRINGE SC SCH (01:58)
[2022-01-10] MEDS: Mometasone 100 MCG/Formoterol 5 MCG 120 PUFF INHALER INH SCH ×2 (07:39→18:05)
[2022-01-10] MEDS ORDERED: Folic Acid 1 MG TAB PO SCH (09:00)
[2022-01-10] MEDS ORDERED: Thiamine 100 MG TAB PO SCH (09:00)
[2022-01-10] MEDS ORDERED: Gabapentin 300 MG CAP PO SCH ×3 (09:00→18:00)
[2022-01-10] MEDS: PARoxetine 20 MG TAB PO SCH (12:20)
[2022-01-10] MEDS: Cyanocobalamin (Vitamin B-12) 1,000 MCG TAB PO SCH (12:20)
[2022-01-10] MEDS: Ondansetron ODT 4 MG TAB PO SCH ×4 (12:20→20:41)
[2022-01-10] MEDS: Saccharomyces boulardii 250 MG CAP PO SCH ×2 (12:20→20:41)
[2022-01-10] MEDS: Clopidogrel Bisulfate 75 MG TAB PO SCH (12:21)
[2022-01-10] MEDS: Aspirin 81 mg Enteric Coated Tablet PO SCH (12:21)
[2022-01-10] MEDS: Magnesium Oxide 400 MG TAB PO SCH ×2 (12:21→20:41)
[2022-01-10] MEDS: Topiramate 25 MG TAB PO SCH ×2 (12:21→21:16)
[2022-01-10] MEDS: Atorvastatin Calcium 40 MG TAB PO SCH (20:41)
[2022-01-10] MEDS: Enoxaparin Sodium 30 MG/0.3 ML SYRINGE SC SCH (20:42)
[2022-01-10] MEDS: Gabapentin 300 MG CAP PO SCH (21:16)
[2022-01-11] MEDS ORDERED: Lorazepam 0.5 MG TAB PO PRN (07:50)
[2022-01-11] MEDS: Mometasone 100 MCG/Formoterol 5 MCG 120 PUFF INHALER INH SCH ×2 (07:59→19:33)
[2022-01-11] MEDS ORDERED: methylPREDNISolone Sod Succ/PF 125 MG/2 ML VIAL IVP SCH (08:00)
[2022-01-11 08:07] LABS: Actual Bicarbonate (HCO3a) 21.9 mEq/L (22-28); Base Excess (BEa) -1.8 mEq/L (-2.0 to +3.0); CO2 Tension 33.8 mmHg (35.0-45.0); Calcium, Ionized (arterial) 1.15 mmol/L (1.12-1.30); Carboxyhemoglobin (COHb) 0.5 gm% (0.0-3.0); O2 Tension (PaO2), arterial 65.2 mmHg (> 80.0); Potassium - ABG Lab 4.04 mmol/L (3.70-5.30); pH, Arterial 7.43 (7.35-7.45)
[2022-01-11 08:09] LABS: Puncture Site RRA
[2022-01-11] MEDS: Saccharomyces boulardii 250 MG CAP PO SCH ×2 (09:10→22:52)
[2022-01-11] MEDS: PARoxetine 20 MG TAB PO SCH (09:11)
[2022-01-11] MEDS: Cyanocobalamin (Vitamin B-12) 1,000 MCG TAB PO SCH (09:11)
[2022-01-11] MEDS: Topiramate 25 MG TAB PO SCH ×2 (09:11→22:54)
[2022-01-11] MEDS: Magnesium Oxide 400 MG TAB PO SCH ×2 (09:11→22:53)
[2022-01-11] MEDS: Aspirin 81 mg Enteric Coated Tablet PO SCH (09:11)
[2022-01-11] MEDS: Clopidogrel Bisulfate 75 MG TAB PO SCH (09:12)
[2022-01-11] MEDS: Ondansetron ODT 4 MG TAB PO SCH ×4 (09:12→23:15)
[2022-01-11] MEDS: Gabapentin 300 MG CAP PO SCH ×3 (09:13→22:53)
[2022-01-11] MEDS: Multivitamins, Adult 10 ML, Folic Acid 1 MG, Thiamine HCl 100 MG in Dextrose 5 %-0.45 %... IV SCH (09:15)
[2022-01-11] MEDS: Enoxaparin Sodium 30 MG/0.3 ML SYRINGE SC SCH (22:54)
[2022-01-11] MEDS: Atorvastatin Calcium 40 MG TAB PO SCH (22:54)
[2022-01-12] MEDS: Mometasone 100 MCG/Formoterol 5 MCG 120 PUFF INHALER INH SCH ×2 (08:19→19:10)
[2022-01-12] MEDS: Aspirin 81 mg Enteric Coated Tablet PO SCH (09:32)
[2022-01-12] MEDS: Cyanocobalamin (Vitamin B-12) 1,000 MCG TAB PO SCH (09:32)
[2022-01-12] MEDS: Gabapentin 300 MG CAP PO SCH ×3 (09:32→22:03)
[2022-01-12] MEDS: Magnesium Oxide 400 MG TAB PO SCH ×2 (09:32→22:03)
[2022-01-12] MEDS: Clopidogrel Bisulfate 75 MG TAB PO SCH (09:32)
[2022-01-12] MEDS: Saccharomyces boulardii 250 MG CAP PO SCH ×2 (09:33→22:03)
[2022-01-12] MEDS: Topiramate 25 MG TAB PO SCH ×2 (09:33→22:02)
[2022-01-12] MEDS: PARoxetine 20 MG TAB PO SCH (09:33)
[2022-01-12] MEDS: Ondansetron ODT 4 MG TAB PO SCH ×4 (09:33→22:04)
[2022-01-12] MEDS: Multivitamins, Adult 10 ML, Folic Acid 1 MG, Thiamine HCl 100 MG in Dextrose 5 %-0.45 %... IV SCH (09:50)
[2022-01-12] MEDS: predniSONE 20 MG TAB PO SCH (13:44)
[2022-01-12] MEDS: Enoxaparin Sodium 30 MG/0.3 ML SYRINGE SC SCH (22:02)
[2022-01-12] MEDS: Atorvastatin Calcium 40 MG TAB PO SCH (22:04)
[2022-01-13] MEDS: Mometasone 100 MCG/Formoterol 5 MCG 120 PUFF INHALER INH SCH ×2 (07:40→19:13)
[2022-01-13] MEDS: Topiramate 25 MG TAB PO SCH ×2 (09:27→20:05)
[2022-01-13] MEDS: Aspirin 81 mg Enteric Coated Tablet PO SCH (09:27)
[2022-01-13] MEDS: Cyanocobalamin (Vitamin B-12) 1,000 MCG TAB PO SCH (09:27)
[2022-01-13] MEDS: Gabapentin 300 MG CAP PO SCH ×3 (09:28→20:04)
[2022-01-13] MEDS: PARoxetine 20 MG TAB PO SCH (09:28)
[2022-01-13] MEDS: Clopidogrel Bisulfate 75 MG TAB PO SCH (09:28)
[2022-01-13] MEDS: Magnesium Oxide 400 MG TAB PO SCH ×2 (09:28→20:04)
[2022-01-13] MEDS: Saccharomyces boulardii 250 MG CAP PO SCH ×2 (09:28→20:04)
[2022-01-13] MEDS: predniSONE 20 MG TAB PO SCH (09:28)
[2022-01-13] MEDS: Ondansetron ODT 4 MG TAB PO SCH ×4 (09:29→20:04)
[2022-01-13] MEDS: Multivitamins, Adult 10 ML, Folic Acid 1 MG, Thiamine HCl 100 MG in Dextrose 5 %-0.45 %... IV SCH (09:29)
[2022-01-13] MEDS: Enoxaparin Sodium 30 MG/0.3 ML SYRINGE SC SCH (20:03)
[2022-01-13] MEDS: Atorvastatin Calcium 40 MG TAB PO SCH (20:05)
[2022-01-13 20:36] VITALS: BP 136/68; TEMP 97.8
== END 2022-01-13 23:07 | disposition short-term general hospital (02) | DRG 74 ==
LOC: NEURO 18:03 → OBSVTOIN 01-11 14:57
PROVIDERS: ADMIT Family Medicine; ATTEND Emergency Medicine
DX: G56.93 Unspecified mononeuropathy of bilateral upper limbs (principal); C34.12 Malignant neoplasm of upper lobe, left bronchus or lung; J44.0 Chronic obstructive pulmonary disease with (acute) lower respiratory infection; J45.901 Unspecified asthma with (acute) exacerbation; Z20.822 Contact with and (suspected) exposure to COVID-19; E78.5 Hyperlipidemia, unspecified; I10 Essential (primary) hypertension; F17.210 Nicotine dependence, cigarettes, uncomplicated; E83.42 Hypomagnesemia; F10.10 Alcohol abuse, uncomplicated; I25.10 Atherosclerotic heart disease of native coronary artery without angina pectoris; Z88.5 Allergy status to narcotic agent; Z88.1 Allergy status to other antibiotic agents; Z88.8 Allergy status to other drugs, medicaments and biological substances; Z79.82 Long term (current) use of aspirin; Z79.899 Other long term (current) drug therapy; Z79.51 Long term (current) use of inhaled steroids
CPT/HCPCS: 36415; 36600; 70470; 71046; 80053; 82805; 83735; 84100; 85025; 94640; 94664; J1650; J2930; J3411; J3475; J7042; J7512; J7620; Q0162

== ENCOUNTER 2022-02-10 22:25 | Emergency (ER) | payer MEDICARE ==
[2022-02-10 23:07] LABS: #Eosinphils 0.2 thou/uL (0.0-0.7); #Lymphocytes 1.8 thou/uL (1.20-3.40); #Monocytes 0.9 thou/uL (0.11-0.59); #Neutrophils 10.5 thou/uL (1.40-6.50); %Basophils 0.3 % (0.0-1.0); %Eosinophils 1.2 % (0.0-10.0); %Lymphocytes 13.3 % (21.0-51.0); %Monocytes 6.7 % (0.0-10.0); %Neutrophils 78.5 % (42.0-75.0); Hemoglobin 13.4 g/dL (12.0-16.0); Mean Corpuscular HGB CONC 30.6 g/dL (32.0-36.0); Mean Corpuscular Hemoglobin 30.3 pg (27.0-31.0); Mean Corpuscular Volume 98.8 fL (78.0-98.0); Mean Platelet Volume 6.8 fL (7.4-10.4); Platelet Count 525 thou/uL (130-400); RBC Distribution Width 13.8 % (11.5-14.5); Red Blood Cell (RBC) Count 4.42 mill/uL (4.20-5.40); White Blood Cell (WBC) Count 13.3 thou/uL (4.8-10.8)
[2022-02-10 23:27] LABS: ALT (SGPT) 9 U/L (8-55); AST (SGOT) 20 U/L (5-34); Albumin 3.3 g/dL (3.4-4.8); Alkaline Phosphatase 100 U/L (40-110); Anion Gap 17 mmol/L (10-20); BUN (Urea Nitrogen) 11 mg/dL (9.8-20.1); Bilirubin, Total 0.5 mg/dL (0.2-1.2); Calc. Creatinine Clearance 0 mL/min (70-130); Calcium 9.4 mg/dL (7.8-10.44); Carbon Dioxide 16 mmol/L (23-31); Chloride 103 mmol/L (98-107); Globulin 4.1 g/dL (2.4-3.5); Glucose 95 mg/dL (80-115); Potassium 4.2 mmol/L (3.5-5.1); Protein, Total 7.4 g/dL (5.8-8.1); Sodium 132 mmol/L (136-145)
== END 2022-02-11 00:24 ==
LOC: ERS 22:25
DX: S00.83XA Contusion of other part of head, initial encounter (principal); I10 Essential (primary) hypertension; J45.909 Unspecified asthma, uncomplicated; F17.210 Nicotine dependence, cigarettes, uncomplicated; Z79.82 Long term (current) use of aspirin; Z79.51 Long term (current) use of inhaled steroids; Z79.899 Other long term (current) drug therapy; Z86.73 Personal history of transient ischemic attack (TIA), and cerebral infarction without residual deficits; W06.XXXA Fall from bed, initial encounter
CPT/HCPCS: 70450; 80053; 85025

== ENCOUNTER 2022-04-15 00:20 | Inpatient (IN) | payer MEDICARE ==
[2022-04-15] MEDS ORDERED: Ondansetron PF 4 MG/2 ML Vial IVP PRN (01:46)
[2022-04-15] MEDS ORDERED: Ondansetron ODT 4 MG TAB PO PRN (01:46)
[2022-04-15] MEDS: Sodium Chloride 0.9% 1,000 ML IV SCH ×2 (03:09→15:33)
[2022-04-15] MEDS ORDERED: Acetaminophen 650 MG Suppository PR PRN (04:48)
[2022-04-15] MEDS ORDERED: hydrALAZINE 20 MG/ML VIAL SLOW IVP PRN (04:49)
[2022-04-15] MEDS ORDERED: Electrolyte Replacement Protocol 1 EACH FS SCH (05:00)
[2022-04-15] MEDS: Ondansetron HCl/PF 8 MG in Sodium Chloride 0.9% 50 ML IVPB SCH ×3 (05:56→21:34)
[2022-04-15 06:22] LABS: Anion Gap 16 mmol/L (10-20); BUN (Urea Nitrogen) 30 mg/dL (9.8-20.1); Calc. Creatinine Clearance 50 mL/min (70-130); Calcium 8.8 mg/dL (7.8-10.44); Carbon Dioxide 16 mmol/L (23-31); Chloride 110 mmol/L (98-107); Estimated GFR 78; Glucose 124 mg/dL (80-115); Magnesium 1.5 mg/dL (1.6-2.6); Potassium 3.7 mmol/L (3.5-5.1); Sodium 138 mmol/L (136-145)
[2022-04-15 06:26] LABS: #Lymphocytes 0.8 thou/uL (1.20-3.40); #Monocytes 0.4 thou/uL (0.11-0.59); %Basophils 0.4 % (0.0-1.0); %Lymphocytes 9.5 % (21.0-51.0); %Monocytes 4.6 % (0.0-10.0); %Neutrophils 85.5 % (42.0-75.0); Hemoglobin 12.3 g/dL (12.0-16.0); Mean Corpuscular Hemoglobin 29.2 pg (27.0-31.0); Mean Corpuscular Volume 91.5 fL (78.0-98.0); Mean Platelet Volume 9.3 fL (7.4-10.4); Platelet Count 222 thou/uL (130-400); RBC Distribution Width 13.4 % (11.5-14.5); Red Blood Cell (RBC) Count 4.21 mill/uL (4.20-5.40); White Blood Cell (WBC) Count 8.2 thou/uL (4.8-10.8)
[2022-04-15] MEDS ORDERED: Magnesium 2 GM/50 ML(in water) 2 GM in Premix Bag 1 BAG IVPB SCH (08:00)
[2022-04-15] MEDS: Enoxaparin Sodium 40 MG/0.4 ML SYRINGE SC SCH (09:52)
[2022-04-15] MEDS ORDERED: Albuterol Sulfate 2.5 mg/0.5 ml Neb NEB PRN (15:21)
[2022-04-15] MEDS: Atorvastatin Calcium 40 MG TAB PO SCH (20:48)
[2022-04-15] MEDS: Gabapentin 300 MG CAP PO SCH (20:48)
[2022-04-15] MEDS: Oseltamivir 75 MG CAP PO SCH (20:50)
[2022-04-15] MEDS: Mometasone/Formoterol 60 PUFF AER INH SCH (20:54)
[2022-04-15] MEDS ORDERED: Melatonin 3 MG TAB PO PRN (21:00)
[2022-04-15] MEDS: cefTRIAXone\\ROCEPHIN 1 GM in Sodium Chloride 0.9% 100 ML IVPB SCH (21:03)
[2022-04-16] MEDS: Mometasone/Formoterol 60 PUFF AER INH SCH ×2 (07:03→19:10)
[2022-04-16 07:40] LABS: #Lymphocytes 1.1 thou/uL (1.20-3.40); #Monocytes 0.5 thou/uL (0.11-0.59); #Neutrophils 5.2 thou/uL (1.40-6.50); %Basophils 0.3 % (0.0-1.0); %Eosinophils 0.4 % (0.0-10.0); %Lymphocytes 16.1 % (21.0-51.0); %Monocytes 7.4 % (0.0-10.0); %Neutrophils 75.9 % (42.0-75.0); Hemoglobin 13.3 g/dL (12.0-16.0); Mean Corpuscular HGB CONC 31.4 g/dL (32.0-36.0); Mean Corpuscular Volume 92.2 fL (78.0-98.0); Platelet Count 239 thou/uL (130-400); RBC Distribution Width 13.2 % (11.5-14.5); Red Blood Cell (RBC) Count 4.61 mill/uL (4.20-5.40); White Blood Cell (WBC) Count 6.9 thou/uL (4.8-10.8)
[2022-04-16 08:01] LABS: ALT (SGPT) 10 U/L (8-55); AST (SGOT) 11 U/L (5-34); Alkaline Phosphatase 88 U/L (40-110); Anion Gap 15 mmol/L (10-20); BUN (Urea Nitrogen) 17 mg/dL (9.8-20.1); Bilirubin, Total 0.3 mg/dL (0.2-1.2); Calc. Creatinine Clearance 56 mL/min (70-130); Calcium 8.4 mg/dL (7.8-10.44); Carbon Dioxide 14 mmol/L (23-31); Chloride 111 mmol/L (98-107); Estimated GFR 90; Globulin 3.2 g/dL (2.4-3.5); Glucose 106 mg/dL (80-115); Magnesium 1.8 mg/dL (1.6-2.6); Potassium 3.9 mmol/L (3.5-5.1); Protein, Total 6.2 g/dL (5.8-8.1); Sodium 136 mmol/L (136-145)
[2022-04-16] MEDS ORDERED: Magnesium 2 GM/50 ML(in water) 2 GM in Premix Bag 1 BAG IVPB SCH (09:00)
[2022-04-16] MEDS: Enoxaparin Sodium 40 MG/0.4 ML SYRINGE SC SCH (09:23)
[2022-04-16] MEDS: Thiamine 100 MG TAB PO SCH (09:23)
[2022-04-16] MEDS: PARoxetine 20 MG TAB PO SCH (09:23)
[2022-04-16] MEDS: Oseltamivir 75 MG CAP PO SCH ×2 (09:23→21:22)
[2022-04-16] MEDS: Gabapentin 300 MG CAP PO SCH ×2 (09:23→21:22)
[2022-04-16] MEDS: Folic Acid 1 MG TAB PO SCH (09:23)
[2022-04-16] MEDS: Clopidogrel Bisulfate 75 MG TAB PO SCH (09:23)
[2022-04-16] MEDS: Aspirin 81 mg Enteric Coated Tablet PO SCH (09:23)
[2022-04-16] MEDS: Cyanocobalamin (Vitamin B-12) 1,000 MCG TAB PO SCH (09:23)
[2022-04-16] MEDS: cefTRIAXone\\ROCEPHIN 1 GM in Sodium Chloride 0.9% 100 ML IVPB SCH (21:22)
[2022-04-16] MEDS: Atorvastatin Calcium 40 MG TAB PO SCH (21:22)
[2022-04-16] MEDS: Mirtazapine 15 MG TAB PO PRN (21:27)
[2022-04-16] MEDS: Acetaminophen 325 MG TAB PO PRN (21:27)
[2022-04-17] MEDS: Mometasone/Formoterol 60 PUFF AER INH SCH ×2 (07:12→19:17)
[2022-04-17] MEDS: Gabapentin 300 MG CAP PO SCH ×2 (09:12→22:02)
[2022-04-17] MEDS: Thiamine 100 MG TAB PO SCH (09:12)
[2022-04-17] MEDS: Folic Acid 1 MG TAB PO SCH (09:12)
[2022-04-17] MEDS: Aspirin 81 mg Enteric Coated Tablet PO SCH (09:13)
[2022-04-17] MEDS: Clopidogrel Bisulfate 75 MG TAB PO SCH (09:13)
[2022-04-17] MEDS: PARoxetine 20 MG TAB PO SCH (09:13)
[2022-04-17] MEDS: Cyanocobalamin (Vitamin B-12) 1,000 MCG TAB PO SCH (09:13)
[2022-04-17] MEDS: Oseltamivir 75 MG CAP PO SCH ×2 (09:13→22:01)
[2022-04-17] MEDS: Enoxaparin Sodium 40 MG/0.4 ML SYRINGE SC SCH (09:14)
[2022-04-17] MEDS: Atorvastatin Calcium 40 MG TAB PO SCH (22:01)
[2022-04-17] MEDS: Mirtazapine 15 MG TAB PO PRN (22:01)
[2022-04-17] MEDS: cefTRIAXone\\ROCEPHIN 1 GM in Sodium Chloride 0.9% 100 ML IVPB SCH (22:02)
[2022-04-18] MEDS: Mometasone/Formoterol 60 PUFF AER INH SCH ×2 (07:24→18:51)
[2022-04-18] MEDS: Enoxaparin Sodium 40 MG/0.4 ML SYRINGE SC SCH (09:30)
[2022-04-18] MEDS: Aspirin 81 mg Enteric Coated Tablet PO SCH (09:31)
[2022-04-18] MEDS: Clopidogrel Bisulfate 75 MG TAB PO SCH (09:31)
[2022-04-18] MEDS: Folic Acid 1 MG TAB PO SCH (09:31)
[2022-04-18] MEDS: Gabapentin 300 MG CAP PO SCH ×2 (09:31→20:32)
[2022-04-18] MEDS: PARoxetine 20 MG TAB PO SCH (09:32)
[2022-04-18] MEDS: Cyanocobalamin (Vitamin B-12) 1,000 MCG TAB PO SCH (09:33)
[2022-04-18] MEDS: Thiamine 100 MG TAB PO SCH (09:33)
[2022-04-18] MEDS: Oseltamivir 75 MG CAP PO SCH ×2 (10:03→20:33)
[2022-04-18 14:39] VITALS: BMI 17.2
[2022-04-18] MEDS: Acetaminophen 325 MG TAB PO PRN (15:50)
[2022-04-18] MEDS ORDERED: Ondansetron PF 4 MG/2 ML Vial IVP PRN (16:10)
[2022-04-18] MEDS: Atorvastatin Calcium 40 MG TAB PO SCH (20:31)
[2022-04-18] MEDS: Mirtazapine 15 MG TAB PO PRN (20:32)
[2022-04-18] MEDS: cefTRIAXone\\ROCEPHIN 1 GM in Sodium Chloride 0.9% 100 ML IVPB SCH (20:33)
[2022-04-19] MEDS: Mometasone/Formoterol 60 PUFF AER INH SCH ×2 (06:56→20:59)
[2022-04-19] MEDS: Gabapentin 300 MG CAP PO SCH ×2 (08:49→20:24)
[2022-04-19] MEDS: Folic Acid 1 MG TAB PO SCH (08:49)
[2022-04-19] MEDS: Oseltamivir 75 MG CAP PO SCH ×2 (08:49→20:24)
[2022-04-19] MEDS: Aspirin 81 mg Enteric Coated Tablet PO SCH (08:49)
[2022-04-19] MEDS: Enoxaparin Sodium 40 MG/0.4 ML SYRINGE SC SCH (08:49)
[2022-04-19] MEDS: Cyanocobalamin (Vitamin B-12) 1,000 MCG TAB PO SCH (08:49)
[2022-04-19] MEDS: PARoxetine 20 MG TAB PO SCH (08:49)
[2022-04-19] MEDS: Thiamine 100 MG TAB PO SCH (08:49)
[2022-04-19] MEDS: Clopidogrel Bisulfate 75 MG TAB PO SCH (08:49)
[2022-04-19] MEDS ORDERED: Sodium Chloride 0.9% 1,000 ML IV SCH (15:45)
[2022-04-19] MEDS: Atorvastatin Calcium 40 MG TAB PO SCH (20:24)
[2022-04-19] MEDS: Mirtazapine 15 MG TAB PO PRN (20:24)
[2022-04-19] MEDS: cefTRIAXone\\ROCEPHIN 1 GM in Sodium Chloride 0.9% 100 ML IVPB SCH (20:24)
[2022-04-20] MEDS: Mometasone/Formoterol 60 PUFF AER INH SCH (06:28)
[2022-04-20] MEDS: Folic Acid 1 MG TAB PO SCH (09:31)
[2022-04-20] MEDS: Clopidogrel Bisulfate 75 MG TAB PO SCH (09:31)
[2022-04-20] MEDS: PARoxetine 20 MG TAB PO SCH (09:31)
[2022-04-20] MEDS: Gabapentin 300 MG CAP PO SCH (09:32)
[2022-04-20] MEDS: Cyanocobalamin (Vitamin B-12) 1,000 MCG TAB PO SCH (09:32)
[2022-04-20] MEDS: Aspirin 81 mg Enteric Coated Tablet PO SCH (09:32)
[2022-04-20] MEDS: Oseltamivir 75 MG CAP PO SCH (09:32)
[2022-04-20] MEDS: Thiamine 100 MG TAB PO SCH (09:32)
[2022-04-20] MEDS: Enoxaparin Sodium 40 MG/0.4 ML SYRINGE SC SCH (09:32)
[2022-04-20 16:24] VITALS: BP 103/67; TEMP 98.6
== END 2022-04-20 17:50 | DRG 194 ==
LOC: SURG A 01:10 → OBSVTOIN 04-16 10:19
PROVIDERS: ADMIT Internal Medicine; ATTEND Internal Medicine
DX: J10.1 Influenza due to other identified influenza virus with other respiratory manifestations (principal); N39.0 Urinary tract infection, site not specified; E87.2 Acidosis; C34.12 Malignant neoplasm of upper lobe, left bronchus or lung; J44.0 Chronic obstructive pulmonary disease with (acute) lower respiratory infection; E44.0 Moderate protein-calorie malnutrition; Z68.1 Body mass index [BMI] 19.9 or less, adult; Z20.822 Contact with and (suspected) exposure to COVID-19; E78.5 Hyperlipidemia, unspecified; K21.9 Gastro-esophageal reflux disease without esophagitis; I10 Essential (primary) hypertension; Z86.73 Personal history of transient ischemic attack (TIA), and cerebral infarction without residual deficits; Z88.5 Allergy status to narcotic agent; Z88.0 Allergy status to penicillin; Z88.8 Allergy status to other drugs, medicaments and biological substances; Z79.82 Long term (current) use of aspirin; Z79.51 Long term (current) use of inhaled steroids; Z79.899 Other long term (current) drug therapy; Z90.710 Acquired absence of both cervix and uterus
CPT/HCPCS: 36415; 36416; 80053; 83735; 85025; J0696; J1642; J1650; J2405; J3475; J3490; J7050; Q0162; U0003; U0005

== ENCOUNTER 2022-06-12 09:06 | Inpatient (IN) | payer MEDICARE ==
[2022-06-12] MEDS ORDERED: cefTRIAXone\\ROCEPHIN 1 GM VIAL ONE (09:47)
[2022-06-12] MEDS ORDERED: Dexamethasone 4 mg/ml Vial ONE (09:47)
[2022-06-12 10:09] LABS: #Eosinphils 0.1 thou/uL (0.0-0.7); #Lymphocytes 0.6 thou/uL (1.20-3.40); #Monocytes 0.6 thou/uL (0.11-0.59); %Basophils 0.1 % (0.0-1.0); %Eosinophils 1.1 % (0.0-10.0); %Monocytes 8.2 % (0.0-10.0); %Neutrophils 82.6 % (42.0-75.0); Hemoglobin 10.2 g/dL (12.0-16.0); Mean Corpuscular HGB CONC 31.6 g/dL (32.0-36.0); Mean Corpuscular Hemoglobin 27.4 pg (27.0-31.0); Mean Corpuscular Volume 86.8 fL (78.0-98.0); Mean Platelet Volume 9.9 fL (7.4-10.4); Platelet Count 99 thou/uL (130-400); Red Blood Cell (RBC) Count 3.74 mill/uL (4.20-5.40); White Blood Cell (WBC) Count 7.3 thou/uL (4.8-10.8)
[2022-06-12 10:25] LABS: ALT (SGPT) 17 U/L (8-55); AST (SGOT) 54 U/L (5-34); Albumin 2.8 g/dL (3.4-4.8); Alkaline Phosphatase 405 U/L (40-110); Anion Gap 21 mmol/L (10-20); BUN (Urea Nitrogen) 30 mg/dL (9.8-20.1); Bilirubin, Total 0.6 mg/dL (0.2-1.2); Calc. Creatinine Clearance 0 mL/min (70-130); Calcium 8.2 mg/dL (7.8-10.44); Carbon Dioxide 11 mmol/L (23-31); Chloride 108 mmol/L (98-107); Estimated GFR 34; Globulin 3.2 g/dL (2.4-3.5); Glucose 71 mg/dL (80-115); Lipase 5 U/L (8-78); Magnesium 1.7 mg/dL (1.6-2.6); Potassium 4.2 mmol/L (3.5-5.1); Sodium 136 mmol/L (136-145)
[2022-06-12 11:31] LABS: MDiff Complete? YES; Platelet Morphology Comment Appears Decreased; Polychromasia SLIGHT = 2-3 cells (100X) (0-2/hpf)
[2022-06-12] MEDS ORDERED: Diltiazem 125 MG/25 ML ONE (12:09)
[2022-06-12] MEDS ORDERED: Senokot S 8.6-50 MG TAB PO PRN (12:22)
[2022-06-12] MEDS ORDERED: Ondansetron ODT 4 MG TAB PO PRN (12:22)
[2022-06-12] MEDS ORDERED: Ondansetron PF 4 MG/2 ML Vial IVP PRN (12:22)
[2022-06-12] MEDS ORDERED: Acetaminophen 650 MG Suppository PR PRN (12:22)
[2022-06-12] MEDS ORDERED: Sodium Bicarb 5 MEQ/10 ML Abboject 4.2% SYRINGE IVP ONE (12:26)
[2022-06-12] MEDS ORDERED: Dextrose 5% in Water 1,000 ML IV PRN (12:36)
[2022-06-12] MEDS ORDERED: Dextrose 50% Abboject 50 ML SYRINGE SLOW IVP PRN (12:36)
[2022-06-12] MEDS ORDERED: Mirtazapine 15 MG TAB PO PRN (12:39)
[2022-06-12] MEDS ORDERED: Sodium Bicarbonate 150 MEQ in Dextrose 5% in Water 1,000 ML IV SCH (13:00)
[2022-06-12] MEDS ORDERED: LORazepam 2 MG/ML SYRINGE IVP SCH (13:48)
[2022-06-12] MEDS ORDERED: Diltiazem 125 MG in Sodium Chloride 0.9% 100 ML IVPB SCH (14:00)
[2022-06-12 14:04] LABS: Troponin I 0.019 ng/mL (< 0.028)
[2022-06-12 14:14] LABS: Magnesium 1.6 mg/dL (1.6-2.6)
[2022-06-12] MEDS ORDERED: Benzonatate 100 MG CAP PO PRN (14:19)
[2022-06-12] MEDS ORDERED: Magnesium 2 GM/50 ML(in water) 2 GM in Premix Bag 1 BAG IVPB SCH (14:35)
[2022-06-12] MEDS ORDERED: Iopamidol-370 76% 500 ML 1 ML ONE (15:09)
[2022-06-12] MEDS: metroNIDAZOLE 500 MG in Premix Bag 1 BAG IVPB SCH (16:05)
[2022-06-12 17:21] LABS: Actual Bicarbonate (HCO3a) 17.7 mEq/L (22-28); Base Excess (BEa) -6.4 mEq/L (-2.0 to +3.0); CO2 Tension 30.1 mmHg (35.0-45.0); Calcium, Ionized (arterial) 1.08 mmol/L (1.12-1.30); Carboxyhemoglobin (COHb) 0.3 gm% (0.0-3.0); Hemoglobin (Hb) 9.9 g/dL (12.0-16.0); O2 Tension (PaO2), arterial 146.9 mmHg (> 80.0); Potassium - ABG Lab 3.78 mmol/L (3.70-5.30); pH, Arterial 7.39 (7.35-7.45)
[2022-06-12 17:23] LABS: ALV-art Gradient 15.115 mmHg (0-20); Puncture Site LB
[2022-06-12 17:39] LABS: Albumin 2.6 g/dL (3.4-4.8); Anion Gap 21 mmol/L (10-20); BUN (Urea Nitrogen) 26 mg/dL (9.8-20.1); BUN/Creatinine Ratio 19.12; Calc. Creatinine Clearance 0 mL/min (70-130); Calcium 7.5 mg/dL (7.8-10.44); Carbon Dioxide 13 mmol/L (23-31); Chloride 107 mmol/L (98-107); Estimated GFR 42; Glucose 234 mg/dL (80-115); Phosphorus 3.2 mg/dL (2.3-4.7); Potassium 3.9 mmol/L (3.5-5.1); Sodium 137 mmol/L (136-145)
[2022-06-12 17:55] VITALS: BMI 19.5
[2022-06-12 18:43] LABS: Bacteria/HPF 4+ HPF (None Seen); Bilirubin Negative (Negative); Blood, Urine 1+ (Negative); Clarity Turbid (Clear); Glucose, Urine (Dipstick) Normal (Negative); Ketone, Urine 60 mg/dL (Negative); Leukocyte 500 Leu/uL (Negative); Nitrite Negative (Negative); Protein, Urine (Dipstick) 20 mg/dL (Neg-Trace); Specific Gravity, Urine 1.023 (1.002-1.036); Squamous Epithelial 0-3 HPF (0-3); Urobilinogen Normal mg/dL (Less than 2); WBC/HPF Greater than 50 HPF (0-3); pH, Urine 5.5 (5.0-9.0)
[2022-06-12 18:46] LABS: Urine Culture Reflex Yes Yes
[2022-06-12 19:02] LABS: Creatinine, Urine 63.62 mg/dL (47-110)
[2022-06-12] MEDS: Sodium Bicarbonate 150 MEQ in Dextrose 5% in Water 1,000 ML IV SCH (19:27)
[2022-06-12] MEDS: Mometasone/Formoterol 60 PUFF AER INH SCH (20:00)
[2022-06-12] MEDS: Gabapentin 300 MG CAP PO SCH (21:06)
[2022-06-12] MEDS: Atorvastatin Calcium 40 MG TAB PO SCH (21:06)
[2022-06-12] MEDS: Heparin 5,000 UNITS/ML VIAL SC SCH (21:07)
[2022-06-12] MEDS: Megestrol Acetate 40 MG TAB PO SCH (21:07)
[2022-06-13] MEDS: metroNIDAZOLE 500 MG in Premix Bag 1 BAG IVPB SCH ×2 (02:01→13:46)
[2022-06-13] MEDS: Mometasone/Formoterol 60 PUFF AER INH SCH ×3 (03:01→19:27)
[2022-06-13] MEDS: Albuterol 200 PUFF (6.7GM INHALER) INH PRN ×3 (03:02→20:21)
[2022-06-13 05:16] LABS: #Eosinphils 0.1 thou/uL (0.0-0.7); #Lymphocytes 0.5 thou/uL (1.20-3.40); #Monocytes 0.9 thou/uL (0.11-0.59); #Neutrophils 5.3 thou/uL (1.40-6.50); %Basophils 0.1 % (0.0-1.0); %Lymphocytes 7.5 % (21.0-51.0); %Monocytes 13.1 % (0.0-10.0); %Neutrophils 78.3 % (42.0-75.0); Hemoglobin 9.3 g/dL (12.0-16.0); Mean Corpuscular HGB CONC 31.8 g/dL (32.0-36.0); Mean Corpuscular Hemoglobin 27.6 pg (27.0-31.0); Mean Corpuscular Volume 86.8 fL (78.0-98.0); Mean Platelet Volume 9.9 fL (7.4-10.4); Platelet Count 105 thou/uL (130-400); RBC Distribution Width 14.1 % (11.5-14.5); Red Blood Cell (RBC) Count 3.37 mill/uL (4.20-5.40); White Blood Cell (WBC) Count 6.8 thou/uL (4.8-10.8)
[2022-06-13 05:18] LABS: INR-International Normal Ratio 1.1; Prothrombin Time 14.2 sec (12.0-14.7)
[2022-06-13 05:20] LABS: Anion Gap 16 mmol/L (10-20); BUN (Urea Nitrogen) 22 mg/dL (9.8-20.1); Calc. Creatinine Clearance 35 mL/min (70-130); Carbon Dioxide 20 mmol/L (23-31); Chloride 107 mmol/L (98-107); Estimated GFR 50; Glucose 129 mg/dL (80-115); Potassium 3.8 mmol/L (3.5-5.1); Sodium 139 mmol/L (136-145)
[2022-06-13 05:33] LABS: ALT (SGPT) 16 U/L (8-55); AST (SGOT) 53 U/L (5-34); Albumin 2.7 g/dL (3.4-4.8); Alkaline Phosphatase 383 U/L (40-110); Bilirubin, Direct 0.2 mg/dL (0.1-0.3); Bilirubin, Total 0.5 mg/dL (0.2-1.2); Protein, Total 5.6 g/dL (5.8-8.1)
[2022-06-13] MEDS: Pantoprazole 40 MG VIAL IVP SCH (10:53)
[2022-06-13] MEDS: Dexamethasone 10 MG/ML VIAL SLOW IVP SCH (10:53)
[2022-06-13] MEDS: cefTRIAXone\\ROCEPHIN 1 GM in Sodium Chloride 0.9% 100 ML IVPB SCH (10:53)
[2022-06-13] MEDS: PARoxetine 20 MG TAB PO SCH (10:54)
[2022-06-13] MEDS: Zinc Sulfate 220 MG CAP PO SCH (10:54)
[2022-06-13] MEDS: Gabapentin 300 MG CAP PO SCH ×2 (10:54→20:22)
[2022-06-13] MEDS: Ascorbic Acid 500 mg Chewable Tablet PO SCH (10:55)
[2022-06-13] MEDS: Megestrol Acetate 40 MG TAB PO SCH ×2 (10:55→20:22)
[2022-06-13] MEDS: Cyanocobalamin (Vitamin B-12) 1,000 MCG TAB PO SCH (10:55)
[2022-06-13] MEDS: Folic Acid 1 MG TAB PO SCH (10:55)
[2022-06-13] MEDS: Thiamine 100 MG TAB PO SCH (10:55)
[2022-06-13] MEDS: Clopidogrel Bisulfate 75 MG TAB PO SCH (10:55)
[2022-06-13] MEDS: Aspirin 81 mg Enteric Coated Tablet PO SCH (10:55)
[2022-06-13] MEDS: Heparin 5,000 UNITS/ML VIAL SC SCH ×2 (11:40→20:20)
[2022-06-13] MEDS: Atorvastatin Calcium 40 MG TAB PO SCH (20:22)
[2022-06-14] MEDS: Acetaminophen 325 MG TAB PO PRN ×2 (00:17→20:33)
[2022-06-14] MEDS: Sodium Bicarbonate 150 MEQ in Dextrose 5% in Water 1,000 ML IV SCH (02:06)
[2022-06-14] MEDS: metroNIDAZOLE 500 MG in Premix Bag 1 BAG IVPB SCH ×2 (02:06→14:37)
[2022-06-14 06:04] LABS: Chloride 105 mmol/L (98-107); Potassium 4.2 mmol/L (3.5-5.1); Sodium 141 mmol/L (136-145)
[2022-06-14 06:05] LABS: Glucose 103 mg/dL (80-115)
[2022-06-14 06:07] LABS: Anion Gap 17 mmol/L (10-20); Carbon Dioxide 23 mmol/L (23-31)
[2022-06-14 06:08] LABS: Calc. Creatinine Clearance 37 mL/min (70-130); Estimated GFR 53
[2022-06-14 06:09] LABS: BUN (Urea Nitrogen) 24 mg/dL (9.8-20.1)
[2022-06-14 07:17] LABS: #Eosinphils 0.1 thou/uL (0.0-0.7); #Lymphocytes 0.6 thou/uL (1.20-3.40); #Neutrophils 5.8 thou/uL (1.40-6.50); %Basophils 0.2 % (0.0-1.0); %Lymphocytes 8.5 % (21.0-51.0); %Monocytes 13.4 % (0.0-10.0); %Neutrophils 76.9 % (42.0-75.0); Hemoglobin 10.9 g/dL (12.0-16.0); Mean Corpuscular HGB CONC 30.4 g/dL (32.0-36.0); Mean Corpuscular Hemoglobin 26.6 pg (27.0-31.0); Mean Corpuscular Volume 87.5 fL (78.0-98.0); Mean Platelet Volume 9.9 fL (7.4-10.4); Platelet Count 111 thou/uL (130-400); RBC Distribution Width 14.5 % (11.5-14.5); White Blood Cell (WBC) Count 7.6 thou/uL (4.8-10.8)
[2022-06-14] MEDS: Mometasone/Formoterol 60 PUFF AER INH SCH ×2 (07:49→20:33)
[2022-06-14] MEDS: Aspirin 81 mg Enteric Coated Tablet PO SCH (09:42)
[2022-06-14] MEDS: Clopidogrel Bisulfate 75 MG TAB PO SCH (09:42)
[2022-06-14] MEDS: Cyanocobalamin (Vitamin B-12) 1,000 MCG TAB PO SCH (09:42)
[2022-06-14] MEDS: PARoxetine 20 MG TAB PO SCH (09:42)
[2022-06-14] MEDS: Thiamine 100 MG TAB PO SCH (09:42)
[2022-06-14] MEDS: Zinc Sulfate 220 MG CAP PO SCH (09:42)
[2022-06-14] MEDS: Megestrol Acetate 40 MG TAB PO SCH ×2 (09:42→20:33)
[2022-06-14] MEDS: Ascorbic Acid 500 mg Chewable Tablet PO SCH (09:43)
[2022-06-14] MEDS: Heparin 5,000 UNITS/ML VIAL SC SCH ×2 (09:43→20:34)
[2022-06-14] MEDS: Pantoprazole 40 MG VIAL IVP SCH (09:43)
[2022-06-14] MEDS: cefTRIAXone\\ROCEPHIN 1 GM in Sodium Chloride 0.9% 100 ML IVPB SCH (09:44)
[2022-06-14] MEDS: Dexamethasone 10 MG/ML VIAL SLOW IVP SCH (09:44)
[2022-06-14] MEDS: Folic Acid 1 MG TAB PO SCH (09:51)
[2022-06-14] MEDS: Gabapentin 300 MG CAP PO SCH ×2 (09:52→20:31)
[2022-06-14] MEDS ORDERED: Sodium Bicarbonate 150 MEQ in Dextrose 5% in Water 1,000 ML IV SCH (12:44)
[2022-06-14] MEDS: AMPicillin 1 GM in Sodium Chloride 0.9% 100 ML IVPB SCH (16:39)
[2022-06-14] MEDS: Atorvastatin Calcium 40 MG TAB PO SCH (20:31)
[2022-06-14] MEDS: guaiFENesin ER 600 MG TAB PO SCH (20:31)
[2022-06-15] MEDS: AMPicillin 1 GM in Sodium Chloride 0.9% 100 ML IVPB SCH ×2 (00:49→09:51)
[2022-06-15 04:42] LABS: #Eosinphils 0.1 thou/uL (0.0-0.7); #Lymphocytes 0.9 thou/uL (1.20-3.40); #Monocytes 1.2 thou/uL (0.11-0.59); #Neutrophils 6.6 thou/uL (1.40-6.50); %Basophils 0.1 % (0.0-1.0); %Eosinophils 1.2 % (0.0-10.0); %Lymphocytes 10.6 % (21.0-51.0); %Monocytes 13.5 % (0.0-10.0); %Neutrophils 74.6 % (42.0-75.0); Hemoglobin 10.8 g/dL (12.0-16.0); Mean Corpuscular HGB CONC 31.3 g/dL (32.0-36.0); Mean Corpuscular Hemoglobin 26.9 pg (27.0-31.0); Mean Corpuscular Volume 85.9 fL (78.0-98.0); Mean Platelet Volume 10.2 fL (7.4-10.4); Platelet Count 105 thou/uL (130-400); RBC Distribution Width 14.5 % (11.5-14.5); Red Blood Cell (RBC) Count 4.01 mill/uL (4.20-5.40); White Blood Cell (WBC) Count 8.8 thou/uL (4.8-10.8)
[2022-06-15 04:55] LABS: Anion Gap 12 mmol/L (10-20); BUN (Urea Nitrogen) 22 mg/dL (9.8-20.1); Calc. Creatinine Clearance 46 mL/min (70-130); Carbon Dioxide 25 mmol/L (23-31); Chloride 105 mmol/L (98-107); Estimated GFR 70; Glucose 87 mg/dL (80-115); Potassium 3.8 mmol/L (3.5-5.1); Sodium 138 mmol/L (136-145)
[2022-06-15] MEDS: Mometasone/Formoterol 60 PUFF AER INH SCH (07:17)
[2022-06-15] MEDS: Pantoprazole 40 MG VIAL IVP SCH (09:50)
[2022-06-15] MEDS: Heparin 5,000 UNITS/ML VIAL SC SCH (09:50)
[2022-06-15] MEDS: Cyanocobalamin (Vitamin B-12) 1,000 MCG TAB PO SCH (09:51)
[2022-06-15] MEDS: Clopidogrel Bisulfate 75 MG TAB PO SCH (09:51)
[2022-06-15] MEDS: Zinc Sulfate 220 MG CAP PO SCH (09:51)
[2022-06-15] MEDS: guaiFENesin ER 600 MG TAB PO SCH (09:51)
[2022-06-15] MEDS: Megestrol Acetate 40 MG TAB PO SCH (09:51)
[2022-06-15] MEDS: Gabapentin 300 MG CAP PO SCH (09:51)
[2022-06-15] MEDS: Aspirin 81 mg Enteric Coated Tablet PO SCH (09:51)
[2022-06-15] MEDS: Folic Acid 1 MG TAB PO SCH (09:51)
[2022-06-15] MEDS: Ascorbic Acid 500 mg Chewable Tablet PO SCH (09:51)
[2022-06-15] MEDS: PARoxetine 20 MG TAB PO SCH (09:51)
[2022-06-15] MEDS: Thiamine 100 MG TAB PO SCH (09:52)
[2022-06-15] MEDS: Dexamethasone 10 MG/ML VIAL SLOW IVP SCH (09:53)
[2022-06-15 16:40] VITALS: BP 115/64; TEMP 98.1
== END 2022-06-15 17:00 | disposition hospice, home (50) | DRG 871 ==
LOC: ERS 09:06 → 2NO 11:50
PROVIDERS: ADMIT Student in an Organized Health Care Education/Training Program; ATTEND Student in an Organized Health Care Education/Training Program
PROC: 8E0ZXY6 Isolation (ICD-10-PCS; principal; 2022-06-12)
DX: A41.89 Other specified sepsis (principal); J12.82 Pneumonia due to coronavirus disease 2019; U07.1 COVID-19; E44.0 Moderate protein-calorie malnutrition; J69.0 Pneumonitis due to inhalation of food and vomit; J96.01 Acute respiratory failure with hypoxia; N17.9 Acute kidney failure, unspecified; E87.2 Acidosis; C78.7 Secondary malignant neoplasm of liver and intrahepatic bile duct; N39.0 Urinary tract infection, site not specified; E46 Unspecified protein-calorie malnutrition; Z68.1 Body mass index [BMI] 19.9 or less, adult; R64 Cachexia; C34.90 Malignant neoplasm of unspecified part of unspecified bronchus or lung; J44.1 Chronic obstructive pulmonary disease with (acute) exacerbation; J44.0 Chronic obstructive pulmonary disease with (acute) lower respiratory infection; Z66 Do not resuscitate; Z51.5 Encounter for palliative care; E78.5 Hyperlipidemia, unspecified; F17.210 Nicotine dependence, cigarettes, uncomplicated; I10 Essential (primary) hypertension; D69.6 Thrombocytopenia, unspecified; F43.10 Post-traumatic stress disorder, unspecified; E86.9 Volume depletion, unspecified; E83.42 Hypomagnesemia; I95.89 Other hypotension; I48.0 Paroxysmal atrial fibrillation; C80.1 Malignant (primary) neoplasm, unspecified; R73.9 Hyperglycemia, unspecified; B95.2 Enterococcus as the cause of diseases classified elsewhere; Z86.73 Personal history of transient ischemic attack (TIA), and cerebral infarction without residual deficits; Z95.5 Presence of coronary angioplasty implant and graft; Z88.5 Allergy status to narcotic agent; Z88.0 Allergy status to penicillin; Z88.8 Allergy status to other drugs, medicaments and biological substances; Z79.899 Other long term (current) drug therapy; Z79.82 Long term (current) use of aspirin; Z79.51 Long term (current) use of inhaled steroids; Z90.710 Acquired absence of both cervix and uterus; Z90.89 Acquired absence of other organs; Z98.890 Other specified postprocedural states; Z99.3 Dependence on wheelchair; Z85.118 Personal history of other malignant neoplasm of bronchus and lung
CPT/HCPCS: 36415; 36416; 71045; 71275; 74177; 80048; 80053; 80076; 81001; 82105; 82570; 82805; 83605; 83690; 83735; 83880; 84156; 84300; 84443; 84484; 84540; 85025; 85610; 86140; 87040; 87077; 87086; 87186; 93005; 93306; 96361; 96365; 96366; 96375; 96376; C9113; J0290; J0696; J1100; J1644; J3475; J3490; J7070; Q9967; S0179